=== PATIENT | female | born 1970 | race Caucasian/White ===

== ENCOUNTER 2023-01-03 17:55 | Emergency (ER) | payer BC, OTHER, SELFPAY ==
[2023-01-03] VITALS (21 sets, daily range): BP systolic 127–144; BP diastolic 82–102; PULSE 78–83; RESP 15–18; TEMP 36.8; O2SAT 91–98; BMI 32.3
--- NOTE | 2023-01-03 18:34 | CT_ITS ---
The [address] [address] Patient Name: VERN Yu MARCUS MRN: [id number] date: 1970 Sex: F Assigned Patient Location: ER Current Patient Location: .[facility] Accession/Order Number: [id number] Exam Date: 01/03/2023 19:59 Report Date: 01/03/2023 21:11 At the request of: JUVENCIO WILSON Procedure: CT facial bones w con EXAMINATION: CT facial bones w con CLINICAL HISTORY: right facial pain TECHNIQUE: Spiral, high resolution axial unenhanced images were obtained from the skull base to the cervicothoracic junction with sagittal and coronal planar reconstructions. All CT scans at this facility use dose modulation, iterative reconstruction, and/or weight based dosing when appropriate to reduce radiation dose to as low as reasonably achievable. COMPARISON: None. RESULT: Soft Tissues: No significant superficial soft tissue swelling. Facial bones: No evidence of an acute fracture in the visualized facial bones. Orbits: No evidence of an acute fracture. The globes are intact. The soft tissue planes of the orbits are maintained. Paranasal Sinuses: The paranasal sinuses are clear. Mastoid air cells: Clear. Foreign Bodies: No evidence of radio-opaque foreign bodies. Other: No evidence of a remote fracture. No lytic or blastic process in the facial bones. CT/CT facial bones w con IMPRESSION: No evidence of acute facial bone fracture or soft tissue swelling. Electronically authenticated by: BECCA BEAR Date: 01/03/2023 21:11
--- NOTE | 2023-01-03 18:34 | CT_ITS ---
The [address] [address] Patient Name: VERN Yu MARCUS MRN: [id number] date: 1970 Sex: F Assigned Patient Location: ER Current Patient Location: ER Accession/Order Number: [id number] Exam Date: 01/03/2023 19:59 Report Date: 01/03/2023 20:47 At the request of: JUVENCIO WILSON Procedure: CT soft tissue neck w con CT soft tissue neck w con HISTORY: right neck pain TECHNIQUE: CT of the neck soft tissues following IV administration of 100 cc Omnipaque 300. All CT scans at this facility use dose modulation, iterative reconstruction, and/or weight based dosing when appropriate to reduce radiation dose to as low as reasonably achievable. COMPARISON: None. RESULT: Lymph nodes: No cervical lymphadenopathy by size, number or morphologic criteria. Small nonspecific lymph nodes are scattered throughout the neck. Aerodigestive tract: The oral cavity is partially obscured by artifact from dental amalgam. The nasal cavities, naso-oropharynx, pharyngeal mucosal space, laryngeal structures and infraglottic trachea are within normal limits. Major salivary glands: Within normal limits. Thyroid gland: Asymmetric enlargement right thyroid lobe with multiple subcentimeter low attenuation nodules. Carotid space: Patent bilateral extracranial carotid and jugular systems. Intracranial contents: Imaged portions within normal limits. Paranasal sinuses, middle ears, mastoids: Clear. Orbits: Within normal limits. Bones: No suspicious osseous lesions in the imaged calvarium, skull base and spine. Normal cervicothoracic alignment. No significant spondylotic changes. Temporomandibular joints are maintained. Lungs: Imaged lungs are clear. CT/CT soft tissue neck w con IMPRESSION: No acute findings of the neck. Asymmetric enlargement right thyroid lobe with multiple low-attenuation nodules. Recommend nonemergent thyroid ultrasound. Electronically authenticated by: BECCA BEAR Date: 01/03/2023 20:47
--- NOTE | 2023-01-03 18:36 | ED.GENADUL1 ---
HPI - General Adult General Chief complaint: Dental/Oral Stated complaint: DENTAL Time Seen by Provider: 01/03/23 18:11 Source: patient Mode of arrival: walk-in Limitations: no limitations History of Present Illness HPI narrative: Patient is scheduled for root canal tomorrow -0 she has been experiencing pain in the right upper jaw. Her dentist placed her on antibiotics and filled two cavities. He then referred her for oral surgery after persistent pain in the right upper mouth jaw. Overnight the patient developed pain to the right side of the head, right cheek and right neck. She also complains of pain in the right ear. No fever or chills. No vomiting. She mentioned that her heart felt like it was racing today . She took a dose of extra strength Tylenol once and three doses of Motrin 600mg with the last at 4pm. Related Data Home Medications Medication Instructions Recorded Confirmed ibuprofen 600 mg tablet (IBU) 600 mg PO Q6H 01/03/23 01/03/23 omeprazole 40 mg capsule,delayed 40 mg PO DAILY 01/03/23 01/03/23 release Allergies Allergy/AdvReac Type Severity Reaction Status Date / Time No Known Drug Allergies Allergy Verified 01/03/23 18:03 [facility] Social History Smoking status: Former smoker Exam Narrative Exam Narrative: Nurses notes and vital signs reviewed and patient is not hypoxic. afebrile General: Uncomfortable. Skin: Warm, dry, no pallor noted. both cheeks are flushed Head: Tenderness along the right maxilla, right cheek and right jaw with mild swelling noted. Scalp is normocephalic, atraumatic. Neck: Supple, no cervical lymphadenopathy. Right anterolateral neck tenderness. No carotid bruits. Eye: Pupils are equal, round and EOMI. No scleral icterus. Ears, Nose, Mouth, and Throat: TM are clear, no nasal mucosal hypertrophy. Oral mucosa is moist, no posterior oropharynx erythema, uvula is mid-line. No gum r tooth tenderness in the right upper mouth/molars. No periapical abscess noted. Cardiovascular: Regular Rate and Rhythm without murmur, gallop or rub. Respiratory: No accessory muscle use or respiratory distress. Lungs are clear to auscultation, no wheezing, rales or rhonchi Musculoskeletal: normal ROM Neurological: A&O x4. No cranial nerve dysfunction observed. No truncal ataxia. Moves all extremities. Sensation intact. Psychiatric: Cooperative and interactive. Normal mood and affect. Constitutional Vital Signs, click to edit/add: Last Vital Signs Temp 98.3 F 01/03/23 18:04 Pulse 83 01/03/23 18:04 Resp 18 01/03/23 18:04 BP 133/102 H 01/03/23 18:04 Pulse Ox 98 01/03/23 18:04 O2 Del Method Room Air 01/03/23 18:04 Course Vital Signs Vital signs: Vital Signs Temperature 98.3 F 01/03/23 18:04 Pulse Rate 83 01/03/23 18:04 Respiratory Rate 18 01/03/23 18:04 Blood Pressure 133/102 H 01/03/23 18:04 Pulse Oximetry 98 01/03/23 18:04 Oxygen Delivery Method Room Air 01/03/23 18:04 Temperature 98.3 F 01/03/23 18:04 Pulse Rate 83 01/03/23 18:04 Respiratory Rate 18 01/03/23 18:04 Blood Pressure 133/102 H 01/03/23 18:04 Pulse Oximetry 98 01/03/23 18:04 Oxygen Delivery Method Room Air 01/03/23 18:04 Medical Decision Making MDM Narrative Medical decision making narrative: peripheral IV were to be established and blood drawn and sent for testing. The patient was ordered to undergo CT scanning of the facial bones and soft tissue of the neck with IV contrast. She was ordered to receive IV Zofran to prevent nausea from IV Dilaudid I ordered for pain. She also received clindamycin and topical dental anesthetic paste was prepared in case she developed continued pain in the right upper molar area. . Discharge Plan Discharge Chief Complaint: Dental/Oral Patient Disposition: Still a Patient Prescriptions / Home Meds: No Action ibuprofen [IBU] 600 mg tablet 600 mg PO Q6H omeprazole 40 mg capsule,delayed release(DR/EC) 40 mg PO DAILY Referrals: Physician,Non-Staff, MD [Primary Care Provider] - 1 week
[2023-01-03] MEDS: CLINDAMYCIN HCL 150 MG CAPSULE 450 MG PO (18:45)
[2023-01-03] MEDS: BENZOCAINE 30 ML, lidocaine HCL 15 ML MM (18:45)
[2023-01-03] MEDS: ONDANSETRON PF 4 MG/2 ML VIAL IV (18:49)
[2023-01-03] MEDS: HYDROMORPHONE HCL 1 MG/ML CARTRIDGE IVP (18:49)
[2023-01-03 19:17] LABS: Basophils Absolute Auto 0.1 10^3/uL (0.0-0.1); Basophils Percent Auto 1.2 % (0.2-2.0); Eosinophils Absolute Auto 0.1 10^3/uL (0.0-0.7); Hematocrit 34.4 % (36.0-48.0); Hemoglobin 11.7 g/dL (12.0-16.0); Immature Granulocytes Abs Auto 0.01 10^3/uL (0.00-0.03); Immature Granulocytes Pct Auto 0.2 % (0.0-0.5); Lymphocytes Absolute Auto 1.8 10^3/uL (1.2-3.8); Lymphocytes Percent Auto 30.3 % (20.5-60.0); Mean Corpuscular Hemoglobin 33.2 pg (26.7-34.0); Mean Corpuscular Volume 97.7 fL (81.0-99.0); Mean Platelet Volume 9.3 fL (9.5-13.5); Monocytes Absolute Auto 0.4 10^3/uL (0.3-0.8); Monocytes Percent Auto 6.7 % (1.7-12.0); Neutrophils Absolute Auto 3.6 10^3/uL (1.4-6.5); Neutrophils Percent Auto 59.6 % (43.0-75.0); Platelet Count 275 10^3/uL (150-450); Red Blood Count 3.52 10^6/uL (4.20-5.40); Red Cell Distribution Width 11.9 % (11.0-15.0)
[2023-01-03 19:24] LABS: Anion Gap 10.8; BUN Creatinine Ratio 15.4; Calcium 8.8 mg/dL (8.5-10.1); Carbon Dioxide 26.8 mmol/L (21.0-32.0); Chloride 106 mmol/L (98-107); Estimated GFR (African America >60 (>=60); Estimated GFR (Non-African Ame >60 (>=60); Glucose 90 mg/dL (74-106); Potassium 3.6 mmol/L (3.5-5.1); Sodium 140 mmol/L (136-145)
[2023-01-03] MEDS: KETOROLAC TROMETHAMINE 30 MG/ML VIAL IVP (20:17)
[2023-01-03] MEDS: DEXAMETHASONE SOD PHOS 10 MG/ML VIAL IV (20:17)
[2023-01-03] MEDS: ORPHENADRINE 60 MG/ 2 ML VIAL IV (21:55)
== END 2023-01-03 22:03 | disposition home or self-care (01) ==
PROVIDERS: Emergency Provider Emergency Medicine
DX: K04.7 Periapical abscess without sinus (principal); Z87.891 Personal history of nicotine dependence
CPT/HCPCS: 36415; 70487; 70491; 80048; 85025; 96374; 96375; 99285; J1100; J1170; Q9967

== ENCOUNTER 2024-04-07 22:24 | Emergency (ER) | payer BC, OTHER, SELFPAY ==
[2024-04-07 22:30] VITALS: BP 137/85; PULSE 94; TEMP 36.8; O2SAT 95; BMI 31.8
--- OUTSIDE RECORDS SUMMARY | 2024-04-07 22:31 | XMS_ITS | CCD ---
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 Name Role Phone GUERLINE ALEXANDER Admitting Unavailable GUERLINE ALEXANDER Attending Unavailable GINA, DR WYLIE Primary Care Unavailable BENJAMIN GUERLINE Consulting Unavailable BENJAMIN, GUERLINE Admitting Unavailable MEL ALEXANDERUEL Attending Unavailable GINA, DR WYLIE Primary Care Unavailable BENJAMIN GUERLINE Consulting Unavailable BENJAMIN, GUERLINE Admitting Unavailable GUERLINE ALEXANDER Attending Unavailable GINA, DR WYLIE Primary Care Unavailable GUERLINE ALEXANDER Consulting Unavailable Jose Sinha Unavailable Inessa Fuentes Unavailable Anderson Drake Unavailable DO Inessa Fuentes Primary Care Provider MD Anderson Drake Attending Provider DO Inessa Fuentes Primary Care Provider MD Anderson Drake Attending Provider [phone] DO Inessa Fuentes Attending Provider DO Inessa Fuentes Attending Provider [phone] Inessa Fuentes Unavailable Inessa Fuentes Primary Care Provider INESSA FUENTES Primary Care Unavailable LY, ANNE Attending Unavailable LY, ANNE L Referring Unavailable INESSA FUENTES Primary Care Unavailable INESSA FUENTES Primary Care Unavailable LY, ANNE L Referring Unavailable LY, ANNE L Referring Unavailable INESSA FUENTES Primary Care Unavailable DO Inessa Fuentes Primary Care Provider DO Fausto Veliz Attending Provider INESSA FUENTES Primary Care Physician [phone] EDWIN WEAVER Attending Unavailable Kuns , Inessa Primary Care Provider Kunrubin DO, Inessa Attending Provider [phone] Kunrubin DO, Inessa R Primary Care Provider Fausto Veliz DO W Unavailable Kunrubin DO, Inessa Primary Care Provider [phone] Self, Referral Attending Provider Unavailable Visci Heather MCMILLAN Referring Provider Diana DOAnne Attending Provider [phone] Viscdomitila MCMILLAN, Heather Attending Provider ALANNA DON Attending Unavailable MURFAUSTO FLORES Attending Unavailable KUNSINESSA R Referring Unavailable MURCEKFAUSTO Attending Unavailable KUNSINESSA R Referring Unavailable MURCEKFAUSTO Attending Unavailable KUNSINESSA R Referring Unavailable VISCIHEATHER Attending Unavailable MURFAUSTO FLORES W Attending Unavailable KUNSINESSA R Referring Unavailable Itzkowitz Alanna MCMILLAN Attending Provider Viscdomitila, Heather Admitting Unavailable Visci, Heather Attending Unavailable Franciscos, Inessa Primary Care Unavailable Ly, Anne L Admitting Unavailable Ly, Anne Garcia Attending Unavailable Kuns, Inessa Primary Care Unavailable Kuns, Inessa Primary Care Unavailable Self, Referral Admitting Unavailable Self, Referral Attending Unavailable Viscdomitila, Heather Referring Unavailable Kuns, Inessa Primary Care Unavailable KunsInessa Attending Unavailable Kuns, Inessa Admitting Unavailable Kuns, Inessa Primary Care Unavailable MurFausto flores Admitting Unavailable MurFausto flores Attending Unavailable ItzkoAlanna thomas Admitting Unavailable ItzAlanna hayward Attending Unavailable Kuns, Inessa Primary Care Unavailable Medications Current Medications Medication Drug Class(es) Dates Sig (Normalized) Sig (Original) [id number] 200 actuat albuterol 0.09 mg/actuat metered dose inhaler (8 sources) beta2-Adrenergic Agonist Start: 07-13-2022 albuterol HFA 90 mcg/act inhaler Inhale 2 puffs in the morning and 2 puffs at noon and 2 puffs in the evening and 2 puffs before bedtime. 07/13/2022 Active Start: 07-13-2022 take 2 puff(s) by in halation four times daily as needed Albuterol Sulfate HFA 108 (90 Base) MCG/ACT 2 puffs Inhalation 4 times a day prn June, Active ALPRAZolam 0.25 mg oral tablet (20 sources) Benzodiazepine Start: 08-10-2023 End: 08-10-2023 take 1 tablet by mouth twice daily as needed for anxiety Alprazolam 0.25 mg tablet Active 0.25 MG PO Twice daily as needed for Anxiety August 10, 2023 8:05am Primarily used for travel Start: 11-25-2021 End: 08-10-2023 Alprazolam 0.25 mg tablet Di scontinued 0.25 MG PO As Directed as needed for Anxiety November 24, 2021 11:00pm August 10, 2023 7:58am takes 1/2 pill Start: 09-17-2020 ALPRAZolam (XA NAX) 0.25 mg tablet As Directed 0 09/17/2020 Active Comment on above: As Directed benzonatate 200 mg oral capsule (3 sources) Non-narcotic Antitussive Start: 07-14-19 23 take 1 capsule by mouth every eight hours Benzonatate 200 MG 1 capsule Orally Three times a day June, Active Cholestyramine Resin (5 sources) Bile Acid Sequestrant Start: 11-12-19 24 take 1 dose by mouth once daily Cholestyramine (With Sugar) 4 gram powder Active 4 GM PO Daily 378 November 11, 2023 11:00pm administer w/meal; avoid other meds within 1hr before or 4-6hr after dose Start: 11-12-2023 take 1 dose by mouth once daily Cholestyramine (With Sugar) Active 4 GM PO Daily 378 November 12, 2023 12:00am administer w/meal; avoid other meds within 1hr before or 4-6hr after dose dexlansoprazole 60 mg delayed release oral capsule (1 source) Proton Pump Inhibitor Start: 03-05-2017 take 1 capsule by mouth once daily Dexlansoprazole (Dexilant) 60 mg Capsule,Biphase Delayed Releas Active 60 MG PO Daily March 05, 2017 1:00am dicyclomine hydrochloride 20 mg oral tablet (20 sources) Anticholinergic Start: 10-18-2020 take 1 tablet by mouth every twelve hours Dicyclomine HCl 20 MG 1 tablet Orally BID Sep, Active Start: 09-05-2018 End: 11-25-2021 take 1 tablet by mouth four times daily as needed Dicyclomine 20 mg tablet Discontinued 20 MG PO Four times daily as needed for abdominal discomfort September 04, 2018 11:00pm November 25, 2021 11:41am Start: 03-05-2017 End: 09-05-2018 take 1 tablet by mouth once daily Dicyclomine 20 mg tablet Discontinued 20 MG PO Daily March 05, 2017 12:00am September 05, 2018 11:02am doxycycline hyclate 100 mg oral tablet (3 sources) Tetracycline-class Drug Start: 07-13-2022 take 1 tablet by mouth every twelve hours Doxycycline Hyclate 100 MG 1 tablet Orally Twice a day for 10 day(s) June, Active methylPREDNISolone 4 mg oral tablet (1 source) Corticosteroid Start: 04-25-2021 methylPREDNISolone 4 MG as directed Orally as directed Apr, Active Multivitamin preparation (6 sources) Start: 03-05-2017 take 1 tablet by mouth once daily Multivitamin Active 1 TAB PO Daily March 05, 2017 12:00am Start: 03-05-2017 take 1 tablet by carlos th once daily Multivitamin Active 1 TAB PO Daily March 05, 2017 1:00am Multivitamin Tablet (4 sources) Start: 03-05-2017 take 1 tablet by mouth once daily Multivitamin Tablet Active 1 TAB PO Daily March 05, 2017 12:00am phentermine hydrochloride 37.5 mg oral tablet (2 sources) Sympathomimetic Amine Anorectic Start: 10-22-2020 take 1 tablet by mouth every twenty-four hours Phentermine HCl 37.5 MG 1 tablet Orally Once a day for 30 days Sep, Active predniSONE 20 mg oral tablet (3 sources) Start: 07-13-2022 take 1 tablet by mouth every twelve hours predniSONE 20 MG 1 tablet Orally bid for 5 day(s) June, Active sulfamethoxazole 800 mg / trimethoprim 160 mg oral tablet (1 source) Dihydrofolate Reductase Inhibitor Antibacterial, Sulfonamide Antimicrobial Start: 04-25-2021 take 1 tablet by mouth every twelve hours Bactrim DS 800-160 MG 1 tablet Orally Twice a day for 10 day(s) Apr, Active Completed/Discontinued Medications Medication Drug Class(es) Dates Sig (Normalized) Sig (Original) cephalexin 500 mg oral capsule (10 sources) Cephalosporin Antibacterial Start: 09-05-2018 End: 10-27-2018 take 1 capsule by mouth every twelve hours Cephalexin (Keflex) 500 mg capsule Discontinued 500 MG PO Q12H September 04, 2018 11:00pm October 27, 2018 6:48am Dexlansoprazole (Dexilant) 60 mg Capsule,Biphase Delayed Releas (9 sources) Start: 03-05-2017 End: 11-25-2021 take 1 capsule by mouth once daily Dexlansoprazole (Dexilant) 60 mg Capsule,Biphase Delayed Releas Discontinued 60 MG PO Daily March 05, 2017 12:00am November 25, 2021 11:41am Start: 03-05-2017 End: 11-25-2021 take 1 capsule by mouth once daily Dexlansoprazole (Dexilant) 60 mg Capsule,Biphase Delayed Releas Discontinued 60 MG PO Daily March 05, 2017 1:00am November 25, 2021 12:41pm hyoscyamine sulfate 0.125 mg oral tablet (10 sources) Start: 09-05-2018 End: 11-25-2021 Hyoscyamine Sulfate 0.125 mg Tablet Discontinued 0.125 MG PO 2-4 TIMES PER DAY as needed for Abdominal Pain September 04, 2018 11:00pm November 25, 2021 11:41am loperamide hydrochloride 2 mg oral capsule (20 sources) Opioid Agonist Start: 09-05-2018 loperamide (IM ODIUM) 2 mg cap(s) EVERY 1-2 HOURS 0 09/05/2018 Active Start: 09-05-2018 Loperamide (Im odium A-D) 2 mg capsule Active 2 MG PO EVERY 1- 2 HOURS as needed for loose stool September 04, 2018 11:00pm after each loose stool until symptoms controlled; do not exceed 16 mg total dose in 24 hrs Imodium A-D PRN Active Imodium A-D Acti ve Comment on above: EVERY 1-2 HOURS MEDICATION, NON-DATABASE (7 sources) take 1 tablet by mouth three times daily before mealtime MEDICATION, NON-DATABASE Take 1 tablet by mouth three times a day before meals. ESSENTIALZYME - Dietary supplement 0 Active Comment on above: Take 1 tablet by [facility] three times a day before meals. ESSENTIALZYME - Dietary supplement MULTIVITAMIN ORAL (7 sources) Start: 03-05-19 MULTIVITAMIN ORAL 1 tablet. 0 03/05/2017 Active Comment on above: 1 tablet. ofloxacin 3 mg/ml ophthalmic solution (6 sources) Quinolone Antimicrobial Start: 11-16-19 End: 03-23-19 ofloxacin (Ocuflox) 0.3 % ophthalmic solution Administer 2 drops into the left eye in the morning and 2 drops at noon and 2 drops in the evening and 2 drops before bedtime. 11/16/2023 03/23/2024 Discontinued Start: 11-16-2023 End: 11-21-2023 ofloxacin Opth 0.3% Marla 2 dr roque(s), OPTH, QID for 5 day(s), 10 mL, Refill(s) 0, [facility]/pharmacy #[id number], 165, cm, 11/16/23 11:26:00 EDT, Height/Length Dosing, 86, kg, 11/16/23 11:26:00 EDT, Weight Dosing Start Date: 11/16/23 Stop Date: 11/21/23 Status: Ordered omeprazole 40 mg delayed release oral capsule (20 sources) Proton Pump Inhibitor Start: 01-02-2023 take 1 capsule by mouth once daily Omeprazole 40 mg capsule,delayed release(DR/EC) Active 40 MG PO Daily August 10, 2023 7:52am Start: 10-14-2021 End: 08-10-2023 take 1 capsule by mouth twice daily Omeprazole 40 mg capsule,delayed release(DR/EC) Discontinued 40 MG PO Twice daily November 24, 2021 11:00pm June 16, 2023 12:19pm take 1 capsule by [facility] once daily Omeprazole 40 MG 1 capsule 30 minutes before morning meal Orally Once a day Active Comment on above: TAKE 1 CAPSULE BY [facility] TWICE A DAY FOR 90 DAYS ondansetron 4 mg disintegrating oral tablet (20 sources) Serotonin-3 Receptor Antagonist Start: 03-29-19 End: 03-23-19 take 1 tablet by mouth every eight hours as needed ondansetron ODT (Zofran-ODT) 4 MG disintegrating tablet Take 4 mg by mouth every 8 (eight) hours if needed 03/29/2023 03/23/2024 Discontinued Start: 11-06-2021 take 1 tablet by carlos th three times daily as needed Ondansetron 4 MG 1 tablet on the tongue and allow to dissolve Orally TID prn for 30 day(s) PRN Oct, Active Start: 09-05-2018 take 1 tablet by carlos th every six hours as needed for nausea and vomiting Ondansetron 4 mg tablet,disintegrating Active 4 MG PO Q6H as needed for nausea and vomiting September 04, 2018 11:00pm sucralfate 1000 mg oral tablet (20 sources) Aluminum Complex Start: 11-25-2021 End: 01-06-2024 take 1 tablet by mouth once daily Sucralfate (Carafate) 1 gram tablet Discontinued 1 GM PO Daily August 08, 2023 11:00pm August 10, 2023 7:52am [employer] TABLET Orally ONCE A DAY; Note: Source Status: Continue; Provider: Gina Small Start: 08-22-2020 take 1 tablet by carlos th every twenty-four hours Carafate 1 GM 1 TABLET Orally ONCE A DAY Aug, Active Start: 08-22-2020 take 1 tablet by carlos th every twelve hours Carafate 1 GM 1 tablet on an empty stomach Orally Twice a day for 90 days Aug, Active Comment on above: Take 1 tablet by carlos th every afternoon. 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 Biliary tract disease (15 sources) Poorly functioning gallbladder; Translations: [Other specified diseases of gallbladder] Onset: 4 09-05-2018 Episodic Diabetes mellitus without complication (8 sources) Hyperglycemia; Translations: [Hyperglycemia, unspecified] Onset: 4 Resolved: 4 01-06-2024 Episodic Disorders of lipid metabolism (20 sources) Hyperlipidemia; Translations: [Hyperlipidemia, unspecified] Onset: 4 Chronic Diverticulosis and diverticulitis (20 sources) Diverticular disease of colon; Translations: [Diverticulosis of large intestine without perforation or abscess without bleeding] Onset: 1 Resolved: 1 Chronic Esophageal disorders (20 sources) Gastroesophageal reflux disease; Translations: [Gastro-esophageal reflux disease without esophagitis] Onset: 1 Resolved: 2 Chronic Gastritis and duodenitis (20 sources) Chronic superficial gastritis; Translations: [Chronic superficial gastritis without bleeding] Onset: 1 Resolved: 2 Chronic Genitourinary symptoms and ill-defined conditions (20 sources) Leukocytes in urine; Translations: [Other abnormal findings in urine] Onset: 4 Episodic Immunizations and screening for infectious disease (4 sources) Encounter for immunization; Translations: [ENCOUNTER FOR IMMUNIZATION] Onset: 2 Episodic Inflammation; infection of eye (except that caused by tuberculosis or sexually transmitteddisease) (1 source) External hordeolum; Translations: [Hordeolum externum unspecified eye, unspecified eyelid] Onset: 4 Episodic Nausea and vomiting (1 source) Nausea Episodic Nonmalignant breast conditions (2 sources) Mammographic microcalcification of left breast; Translations: [Mammographic microcalcification found on diagnostic imaging of breast] Onset: 5 03-23-2024 Episodic Other and unspecified benign neoplasm (15 sources) Polyp of colon; Translations: [Polyp of colon] Onset: 4 11-29-2020 Episodic Other disorders of stomach and duodenum (20 sources) Indigestion; Translations: [Functional dyspepsia] Onset: 4 04-16-2023 Episodic Other disorders of stomach and duodenum (3 sources) Other diseases of stomach and duodenum Onset: 1 Resolved: 2 Episodic Other disorders of stomach and duodenum (15 sources) Disorder of function of stomach; Translations: [Disease of stomach and duodenum, unspecified] Onset: 4 03-08-2017 Episodic Other gastrointestinal disorders (20 sources) Irritable bowel syndrome with diarrhea; Translations: [Irritable bowel syndrome with diarrhea] Onset: 4 06-09-2023 Chronic Other gastrointestinal disorders (20 sources) Irritable bowel syndrome; Translations: [Mixed irritable bowel syndrome] Chronic Other gastrointestinal disorders (6 sources) Irritable bowel syndrome with diarrhea Onset: 1 Resolved: 2 Chronic Other gastrointestinal disorders (1 source) Mixed irritable bowel syndrome Chronic Other gastrointestinal disorders (20 sources) Diarrhea; Translations: [Diarrhea, unspecified] Onset: 4 09-05-2018 Episodic Other gastrointestinal disorders (1 source) Other specified symptoms and signs involving the digestive system and abdomen; Translations: [Irregular bowel habits] Onset: 4 Episodic Other gastrointestinal disorders (4 sources) Diarrhea, unspecified; Translations: [Diarrhea] Onset: 4 11-12-2023 Episodic Other nutritional; endocrine; and metabolic disorders (20 sources) Obesity; Translations: [Obesity, unspecified] Onset: 4 08-10-2023 Chronic Other nutritional; endocrine; and metabolic disorders (10 sources) Body mass index 30+ - obesity; Translations: [Body mass index (BMI) 32.0-32.9, adult] 01-06-2024 Chronic Other nutritional; endocrine; and metabolic disorders (5 sources) Obesity, unspecified; Translations: [Obesity, unspecified] Chronic Other nutritional; endocrine; and metabolic disorders (1 source) Obese class I; Translations: [Body mass index (BMI) 31.0-31.9, adult] Onset: 4 Chronic Other nutritional; endocrine; and metabolic disorders (4 sources) Body mass index (BMI) 31.0-31.9, adult; Translations: [Body Mass Index 31.0-31.9, adult] 01-06-2024 Chronic Other screening for suspected conditions (not mental disorders or infectious disease) (4 sources) Encounter for screening mammogram for malignant neoplasm of breast; Translations: [Encounter for other screening for malignant neoplasm of breast] Onset: 4 Episodic Thyroid disorders (20 sources) Thyroid nodule; Translations: [Nontoxic single thyroid nodule] Onset: 4 Chronic Past or Other Problems Problem Classification Problem Date Documented Da te Episodic/Chronic Administrative/social admission (20 sources) Patient encounter status; Translations: [Dietary counseling and surveillance] Onset: 06-09-2023 01-06-2024 Episodic Other and unspecified benign neoplasm (20 sources) History of polyp of colon; Translations: [Personal history of colonic polyps] Onset: 06-09-2023 11-23-2023 Episodic Other and unspecified benign neoplasm (1 source) Polyp of colon Onset: 12-31-2020 Resolved: 12-31-2020 Episodic Other disorders of stomach and duodenum (20 sources) Intestinal metaplasia of gastric mucosa; Translations: [Other diseases of stomach and duodenum] Onset: 06-09-2023 06-09-2023 Episodic Other gastrointestinal disorders (20 sources) Constipation alternates with diarrhea; Translations: [Other specified symptoms and signs involving the digestive system and abdomen] Onset: 06-09-2023 06-09-2023 Episodic Other gastrointestinal disorders (1 source) Abdominal distension (gaseous) Onset: 10-14-2021 Resolved: 10-14-2021 Episodic Other lower respiratory disease (16 sources) Cough; Translations: [Cough, unspecified type] Onset: 06-09-2023 06-09-2023 Episodic Unclassified (1 source) History of COVID-19 Z86.16 Unclassified (1 source) Cough, unspecified type R05.9 Results Test Name Value Interpretation Reference Range Facility Mammography reportOrdered By : Rojelio Magallon on 03-31-2024 Diagnostic imaging study [facility] [place] [address] Mammography Report Signed with Addenda Patient: Zari Velazquez MR#: [id number] : 1970 Acct:[id number] Age/Sex: 54 / F ADM Date: 5 Loc: [place] Room: Type: [facility] Attending Dr: Alanna Don DO Copies to: DO Alanna Walters DO~ Ordering Provider: Alanna Don DO Date of Service: 03/28/24 MM/MM biopsy LT vac assist stereo: N63.22 ([id number]) MM/MM speciman imaging post bx: POST BIOPSY, CALCIFICATIONS ([id number]) MM/MM post biopsy LT w/CAD: POST BIOPSY CLIP PLACEMENT ADDENDUM 1 Addendum for pathology: Stereotactic biopsy left breast calcifications: Ductal carcinoma in situ ER/NC positive. Findings this is concordant with imaging. Surgical/oncologic management is suggested. Impression dictated by: Rojelio Magallon Jr., D.O.03/31/2024 12:44 PM Dictation Location: [facility]--22 Addendum Dictated By: Rojelio Magallon Jr, DO Addendum Signed By: 03/31/24 1244 Addendum Cosigned By: DD/ /15/1242 TD/TT: 03/31/2409/16/1243 STEREOTACTIC LEFT BREAST BIOPSY WITH VACUUM ASSISTED NEEDLE AND MARKING CLIP PLACEMENT: CLINICAL INDICATION: Suspicious left breast calcifications TECHNIQUE AND FINDINGS: The procedure, associated risks, benefits were discussed with the patient and written, informed consent was obtained. Stereotactic imaging was performed and the coordinates of the lesion were calculated. Following sterile preparation and local anesthetization with lidocaine, an 9-gauge [employer] vacuum assisted core biopsy needle was advanced intothe breast. Documentation of the needle position was performed both before and after firing of the needle. Multiple core biopsy specimens were obtained of the area of concern. Before the needle was removed, a marking clip was placed. The postbiopsy stereotactic image confirmed clip deployment. There were no immediatepostprocedural complications. MM/MM post biopsy LT w/CAD IMPRESSION: TECHNICALLY SUCCESSFUL LEFT BREAST STEREOTACTIC BIOPSY ENUMERATED ABOVE. LEFT BREAST SPECIMEN: Specimen radiograph of the tissue samples was obtained. There are multiple core tissue samples. Calcifications are seen within some of the tissue cores. IMPRESSION: STATUS POST SUCCESSFUL SAMPLING OF LEFT BREAST CALCIFICATIONS DIAGNOSTIC MAMMOGRAMS: Craniocaudal and lateral views of the left breast were performed post stereotactic biopsy using low dose digital technique. Comparison is made to the previous mammograms dated 03/14/2024. A marking clip isnoted with 1.8 cm of inferior migration IMPRESSION: STATUS POST SUCCESSFUL STEREOTACTIC BIOPSY OF LEFT BREAST. 1.8 CM INFERIOR MIGRATION OF THE CLIP RELATIVE TO THE BIOPSY SITE. RESULT CODE: NL Impression dictated by: Rojelio Magallon Jr., D.O.03/28/2024 11:31 AM Dictation Location: [id number] Transcribed By: MICHAEL 03/28/24 1131 Dictated By: Rojelio Magallon Jr, DO 03/28/24 1128 Signed By: 03/28/24 1131 [facility] Pathology study report docum entOrdered By: Sachin Staton on 03-30-2024 Pathology study [facility] Other Grant 03-28-2024 L ----- Specimen: [id number] Received: 03/28/24 Status: JEREMY Hagan Num: [id number] Spec Type: Surgical Subm Dr: Rojelio Magallon Jr, Tissues: A Breast Core CALCIFICATIONS (LEFT BREAST) Procedures: HE/8, Gross/Micro L4, CK5 6/4, E CADHERIN, ER, p63/4, NC Age/ Patient Sex Location Account Attending Physician Zari Velazquez 54/F QUITA [id number] Alanna Don DO SPEC NUM: [id number] RECD: 03/28/24 STATUS: JEREMY STREETPola NUM: [id number] JAMESON: 03/28/24- DR: Rojelio Magallon Jr, DO ENTERED: 03/28/24 [facility] DR: Alanna Don, DO SPEC TYPE: Surgical DEPT: S ORDERED: HE/8, Gross/Micro L4, CK5 6/4, E CADHERIN, ER, p63/4, NC ORDERED: HE/8, Gross/Micro L4, CK5 6/4, E CADHERIN, ER, p63/4, NC Pathological Diagnosis Calcifications, left breast, Core Biopsy: Ductal carcinoma in situ (DCIS), intermediate nuclear grade. Associated calcifications. Breast Hormone Profile ER: Positive (intermediate, 90-100%). NC: Positive (intermediate, 50-60%). This case has been internally reviewed by Dr. Youngblood with agreement. Clinical Information Left breast calcifications Gross Description A. The specimen is in formalin labeled with the patient's name, date of and left breast . It consists of 2 loosely folded Telfa pads. Per the requisition top Telfa pad contains calcs . The top Telfa pad contains 6 fibrofatty cheng-yellow tissue cores ranging from 2.1-3.3 cm in length by 0.2 to 0.3 cm in diameter. The bottom Telfa pad contains 2 fibrofatty tissue cores ranging from 2.6-3.5 cm in length by 0.3 cm in diameter, along with Specimen: [id number] Received: 03/28/24 Status: JEREMY Hagan Num: [id number] Spec Type: Surgical Subm Dr: Rojelio Magallon Jr, Tissues: A Breast Core CALCIFICATIONS (LEFT BREAST) Procedures: HE/8, Gross/Micro L4, CK5 6/4, E CADHERIN, ER, p63/4, NC Patient: Zari Velazquez [id number] (Continued) Specimen: [id number] Received: 03/28/24 (Continued) Gross Description (Continued) Signed (signature on file) Sachin Staton MD 03/30/24 1628 Specimen: [id number] Received: 03/28/24 Status: JEREMY Hagan Num: [id number] Spec Type: Surgical Subm Dr: Rojelio Magallon Jr, Tissues: A Breast Core CALCIFICATIONS (LEFT BREAST) Procedures: HE/8, Gross/Micro L4, CK5 6/4, E CADHERIN, ER, p63/4, NC Patient: RobbieZari [id number] (Continued) Specimen: [id number] Received: 03/28/24-1152 (Continued) Gross Description (Continued) a 2.0 x 1.4 x 0.3 cm aggregate of adipose tissue fragments. The specimen is entirely submitted as follows: A1?A2: Cores from top Telfa pad A3?A4: Cores from bottom Telfa pad Time specimen extracted: 1117 Time specimen placed in formalin: 1124 Cold ischemic time: 7 minutes Total fixation time: 6 hours 36 minutes [facility] Codes [id number] Specimen: [id number] Received: 03/28/24 Status: JEREMY Hagan Num: [id number] Spec Type: Surgical Subm Dr: Rojelio Magallon Jr, DO Tissues: A Breast Core CALCIFICATIONS (LEFT BREAST) Procedures: HE/8, Gross/Micro L4, CK5 6/4, E CADHERIN, ER, p63/4, NC Patient: Zari Velazquez [id number] (Continued) Signed (signature on file) Sachin Staton MD 03/30/24 1628 Normal [facility] MM biopsy LT vac assist ster eoon 03-28-2024 MM biopsy [place] [address] Mammography Report Signed with Praneeth Patient: Zari Velazquez MR#: [id number] 764 : 1970 Acct:[id number] Age/Sex: 54 / F ADM Date: 03/28/24 Loc: [place] Room: Type: [facility] Attending Dr: Alanna Don DO Copies to: DO Alanna Walters DO Ordering Provider: Alanna Don DO Date of Service: 03/28/24 MM/MM biopsy LT vac assist stereo: N63.22 ([id number]) MM/MM speciman imaging post bx: POST BIOPSY, CALCIFICATIONS ([id number]) MM/MM post biopsy LT w/CAD: POST BIOPSY CLIP PLACEMENT ADDENDUM 1 Addendum for pathology: Stereotactic biopsy left breast calcifications: Ductal carcinoma in situ ER/NC positive. Findings this is concordant with imaging. Surgical/oncologic management is suggested. Impression dictated by: Rojelio Magallon Jr., D.O.03/31/2024 12:44 PM Dictation Location: RADIO-PC-22 Addendum Dictated By: Rojelio Magallon Jr DO Addendum Signed By: 03/31/241243 Addendum Cosigned By: DD/ /15/1242 TD/TT: 03/31/2409/16/1243 STEREOTACTIC LEFT BREAST BIOPSY WITH VACUUM ASSISTED NEEDLE AND MARKING CLIP PLACEMENT: CLINICAL INDICATION: Suspicious left breast calcifications TECHNIQUE AND FINDINGS: The procedure, associated risks, benefits were discussed with the patient and written, informed consent was obtained. Stereotactic imaging was performed and the coordinates of the lesion were calculated. Following sterile preparation and local anesthetization with lidocaine, an 9-gauge [employer] vacuum assisted core biopsy needle was advanced into the breast. Documentation of the needle position was performed both before and after firing of the needle. Multiple core biopsy specimens were obtained of the area of concern. Before the needle was removed, a marking clip was placed. The postbiopsy stereotactic image confirmed clip deployment. There were no immediate postprocedural complications. MM/MM post biopsy LT w/CAD IMPRESSION: TECHNICALLY SUCCESSFUL LEFT BREAST STEREOTACTIC BIOPSY ENUMERATED ABOVE. LEFT BREAST SPECIMEN: Specimen radiograph of the tissue samples was obtained. There are multiple core tissue samples. Calcifications are seen within some of the tissue cores. IMPRESSION: STATUS POST SUCCESSFUL SAMPLING OF LEFT BREAST CALCIFICATIONS DIAGNOSTIC MAMMOGRAMS: Craniocaudal and lateral views of the left breast were performed post stereotactic biopsy using low dose digital technique. Comparison is made to the previous mammograms dated 03/14/2024. A marking clip is noted with 1.8 cm of inferior migration IMPRESSION: STATUS POST SUCCESSFUL STEREOTACTIC BIOPSY OF LEFT BREAST. 1.8 CM INFERIOR MIGRATION OF THE CLIP RELATIVE TO THE BIOPSY SITE. RESULT CODE: NL Impression dictated by: Rojelio Magallon Jr., D.O.03/28/2024 11:31 AM Dictation Location: DWS01 Transcribed By: MICHAEL 03/28/24 1131 Dictated By: Rojelio Magallon Jr, DO 03/28/24 1128 Signed By: 03/28/24 1131 Normal [facility] MM special view LT w/CADon 0 03-14-2024 MM special view LT w/CAD [facility] [place] [address] Mammography Report Signed Patient: Zari Velazquez MR#: [id number] 764 : 1970 Acct:[id number] Age/Sex: 53 / F ADM Date: 03/14/24 Loc: [place] Room: Type: [facility] Attending Dr: Heather Norwood DO Copies to: DO Heather Walters DO Ordering Provider: Heather Norwood DO Date of Service: 03/14/24 MM/MM special view LT w/CAD: R92.8 Left Diagnostic Full Field digital mammogram with 3-D imaging. Spot magnification views of the left breast with mediolateral view COMPARISON: 01/27/2024 HISTORY: Follow-up assessment of left breast microcalcifications BREAST COMPOSITION: Scattered fibroglandular densities of the breast parenchyma identified BREAST CALCIFICATIONS: Confirmation of pleomorphic grouping of microcalcifications. VASCULAR CALCIFICATIONS: None ARCHITECTURAL DISTORTION: None BREAST NODULE: None AXILLARY LYMPH NODES: Normal POSTSURGICAL CHANGES: None MM/MM special view LT w/CAD IMPRESSION: A small grouping of pleomorphic microcalcifications. Stereotactic biopsy recommended. RESULT CODE: 4 Suspicious Abnormality - Biopsy Considered DENSITY CODE: 2 (approximately 25-50% glandular) FOLLOW UP: BIO THE FALSE-NEGATIVE RATE OF MAMMOGRAPHY IS APPROXIMATELY 10%. IMAGING OF A PALPABLE ABNORMALITY MUST BE BASED ON CLINICAL GROUNDS. PATIENT WAS ENTERED INTO A REMINDER SYSTEM WITH A TARGET DUE DATE FOR THE NEXT MAMMOGRAM. Impression dictated by: Frantz Ornelas M.D.03/14/2024 9:15 AM Dictation Location: DWS01 Transcribed By: MICHAEL 03/14/2415 Dictated By: Frantz Ornelas DO 03/14/24 0912 Signed By: 03/14/24 0915 Normal [facility] Mammography reportOrdered By : Frantz Ornelas on 03-14-2024 Diagnostic imaging study [facility] [place] [address] [place], [place] [id number] Mammography Report Signed Patient: Zari Velazquez MR#: [id number] : 1970 Acct:[id number] Age/Sex: 53 / F ADM Date: 5 Loc: [place] Room: Type: [facility] Attending Dr: Heather Norwood DO Copies to: Inessa Fuentes,DO Heather Norwood DO~ Ordering Provider: Heather Norwood DO Date of Service: 03/14/24 MM/MM special view LT w/CAD: R92.8 Left Diagnostic Full Field digital mammogram with 3-D imaging. Spot magnification views of the left breast with mediolateral view COMPARISON: 01/27/2024 HISTORY: Follow-up assessment of left breast microcalcifications BREAST COMPOSITION: Scattered fibroglandular densities of the breast parenchyma identified BREAST CALCIFICATIONS: Confirmation of pleomorphic grouping of microcalcifications. VASCULAR CALCIFICATIONS: None ARCHITECTURAL DISTORTION: None BREAST NODULE: None AXILLARY LYMPH NODES: Normal POSTSURGICAL CHANGES: None MM/MM special view LT w/CAD IMPRESSION: A small grouping of pleomorphic microcalcifications. Stereotactic biopsy recommended. RESULT CODE: 4 Suspicious Abnormality - Biopsy Considered DENSITY CODE: 2 (approximately 25-50% glandular) FOLLOW UP: BIO THE FALSE-NEGATIVE RATE OF MAMMOGRAPHY IS APPROXIMATELY 10%. IMAGING OF A PALPABLE ABNORMALITY MUST BE BASED ON CLINICAL GROUNDS. PATIENT WAS ENTERED INTO A REMINDER SYSTEM WITH A TARGET DUE DATE FOR THE NEXT MAMMOGRAM. Impression dictated by: Frantz Ornelas M.D.03/14/2024 9:15 AM Dictation Location: [facility] Transcribed By: [facility] 03/14/24914 Dictated By: Frantz Ornelas DO 03/14/24911 Signed By: 03/14/24 0915 [facility] CT abdomen pelvis w meron CT abdomen pelvis w [facility] [address] [address] [address] Scan Report Signed Patient: Zari Velazquez MR#: [id number] 764 : 1970 Acct:[id number] Age/Sex: 53 / F ADM Date: 02/03/24 Loc: CT Room: Type: REG CLI Attending Dr: Anne Ortiz DO Copies to: Anne Ortiz DO Ordering Provider: Anne Ortiz DO Date of Service: 02/03/24 CT/CT abdomen pelvis w con: R10.11 - Right upper quadrant pain CT ABDOMEN AND PELVIS WITH INTRAVENOUS CONTRAST: CLINICAL HISTORY: Right-sided abdominal pain for one year with diarrhea bloating and belching COMPARISON: CT abdomen and pelvis 10/18/2020 TECHNIQUE: Spiral images were obtained through the abdomen and pelvis following the administration of intravenous contrast. This CT exam was performed using one or more following dose reduction t echniques: Automated exposure control, adjustment of the mA and/or kV according to patient size, or use of iterative reconstruction technique. FINDINGS: Lung Bases: [No acute findings.] Organs:Liver gallbladder portal vein spleen pancreas and adrenal glands appear unremarkable. No enhancing renal mass or hydronephrosis. Abdominal aorta appears normal in caliber.[ GI: Stomach is grossly unremarkable. Small bowel appears nondilated. Sigmoid diverticulosis.[ Pelvis:[Urinary bladder is grossly unremarkable. Uterus has been removed. No adnexal mass.] Peritoneum/Retroperitoneu m:No free air or free fluid or lymphadenopathy.[ Abd wall/Bones:Abdominal wall demonstrates no acute findings. Osseous structures demonstrate degenerative change.[ CT/CT abdomen pelvis w con IMPRESSION: No acute process. Sigmoid diverticulosis. Impression dictated by: Rojelio Magallon Jr., D.OJabari02/03/2024 9:51 AM Dictation Location: [place] [address] Transcribed By: [facility] 02/03/2451 Dictated By: Rojelio Magallon Jr, DO 02/03/24 0948 Signed By: 02/03/24 0951 Normal [facility] MM screening mammo BI w/CADo n 01-27-2024 MM screening mammo BI w/CAD [facility] [place] [address] Mammography Report Signed Patient: Zari Velazquez MR#: [id number] 764 : 1970 Acct:[id number] Age/Sex: 53 / F ADM Date: 01/27/24 Loc: [place] Room: Type: REG CLI Attending Dr: Referral Self Copies to: DO Heather Walters DO SELF,REFERRAL Ordering Provider: SELF,REFERRAL Date of Service: 01/27/24 MM/MM screening mammo BI w/CAD: SCREENING BILATERAL Screening Full Field digital mammogram with 3-D imaging. Full field digital CC and MLO imaging performed. CAD utilized. COMPARISON: 05/08/2022 HISTORY: Annual screening BREAST COMPOSITION: The breast parenchyma is heterogeneously dense. BREAST CALCIFICATIONS: A developing grouping of microcalcifications in the central portion of the left breast at a middle depth. VASCULAR CALCIFICATIONS: None ARCHITECTURAL DISTORTION: None BREAST NODULE: None AXILLARY LYMPH NODES: Normal POSTSURGICAL CHANGES: None MM/MM screening mammo BI w/CAD IMPRESSION: A developing grouping of microcalcifications in the central portion of the left breast at a middle depth. Spot magnification views recommended. RESULT CODE: 0 Incomplete: Needs Additional Imaging Evaluation DENSITY CODE: 3 (approximately 51-75% glandular) FOLLOW UP: ADD THE FALSE-NEGATIVE RATE OF MAMMOGRAPHY IS APPROXIMATELY 10%. IMAGING OF A PALPABLE ABNORMALITY MUST BE BASED ON CLINICAL GROUNDS. PATIENT WAS ENTERED INTO A REMINDER SYSTEM WITH A TARGET DUE DATE FOR THE NEXT MAMMOGRAM. Impression dictated by: Frantz Ornelas M.D.01/27/2024 3:40 PM Dictation Location: [facility] Transcribed By: [facility] 01/27/24 1540 Dictated By: Frantz Ornelas DO 01/27/24 1536 Signed By: 01/27/24 1540 Normal [facility] A1C with Estimated Average G xin 01-06-2024 Glucose [Mass/Vol] 114 mg/dL Normal [facility] Comment on above: Result Comment: PERF ORMED BY: [facility] [address] [place] [address] PATHOLOGIST PATTERN CUTTER SACHIN STATON M.D. Performed By: #### C BC, LIPID, ALEX, CMP, TSH3, A1C WTH eA, LIPASE, CUU ####[facility] [id number] [place] [address] [facility] HbA1c (Bld) [Mass fraction] 5.6 % Normal 4.3-5.6 [facility] Comment on above: Result Comment: Incr eased risk for diabetes: 5.7 - 6.4 diabetes: >6.4 glycemic control for adults with diabetes: <7.0 Performed By: #### C BC, LIPID, ALEX, CMP, TSH3, A1C WTH eA, LIPASE, CUU ####[facility] [id number] Amylaseon 01-06-2024 Amylase [Catalytic activity/Vol] 55 U/L Normal 29-103 [facility] Comment on above: Performed By: #### C BC, LIPID, ALEX, CMP, TSH3, A1C WTH eA, LIPASE, CUU #### [address] Complete Blood Count Auto Di ffon 01-06-2024 Basophils (Bld) [#/Vol] 0.0 10*3/uL Normal 0.0-0.2 [facility] Comment on above: Result Comment: PERF ORMED BY: [place] [address] PATHOLOGIST PATTERN CUTTER SACHIN STATON M.D. Performed By: #### C BC, LIPID, ALEX, CMP, TSH3, A1C WTH eA, LIPASE, CUU #### [address] Basophils/100 WBC (Bld) 0.4 % Normal . [facility] Comment on above: Performed By: #### C BC, LIPID, ALEX, CMP, TSH3, A1C WTH eA, LIPASE, CUU #### [address] Eosinophils (Bld) [#/Vol] 0.2 10*3/uL Normal 0.0-0.45 [facility] Comment on above: Performed By: #### C BC, LIPID, ALEX, CMP, TSH3, A1C WTH eA, LIPASE, CUU #### [place] [address] [place] Eosinophils/100 WBC (Bld) 3.8 % Normal . [facility] Comment on above: Performed By: #### C BC, LIPID, ALEX, CMP, TSH3, A1C WTH eA, LIPASE, CUU #### [address] Erythrocyte distribution width (RBC) [Ratio] 12.3 % Normal 11.9-15.3 [facility] Comment on above: Performed By: #### C BC, LIPID, ALEX, CMP, TSH3, A1C WTH eA, LIPASE, CUU #### [address] Hematocrit (Bld) [Volume fraction] 39.2 % Normal 34.0-46.4 [facility] Comment on above: Performed By: #### C BC, LIPID, ALEX, CMP, TSH3, A1C WTH eA, LIPASE, CUU #### [address] Hemoglobin (Bld) [Mass/Vol] 13.5 g/dL Normal 11.8-15.4 [facility] Comment on above: Performed By: #### C BC, LIPID, ALEX, CMP, TSH3, A1C WTH eA, LIPASE, CUU #### [address] Lymphocytes (Bld) [#/Vol] 1.5 10*3/uL Normal 1.00-4.8 [facility] Comment on above: Performed By: #### C BC, LIPID, ALEX, CMP, TSH3, A1C WTH eA, LIPASE, CUU #### [address] Lymphocytes/100 WBC (Bld) 32.9 % Normal . [facility] Comment on above: Performed By: #### C BC, LIPID, ALEX, CMP, TSH3, A1C WTH eA, LIPASE, CUU #### [address] MCH (RBC) [Entitic mass] 32.9 pg Normal 24.7-34.3 [facility] Comment on above: Performed By: #### C BC, LIPID, ALEX, CMP, TSH3, A1C WTH eA, LIPASE, CUU #### [address] MCV (RBC) [Entitic vol] 95.6 fL Normal 80-100 The [facility] Comment on above: Performed By: #### C BC, LIPID, ALEX, CMP, TSH3, A1C WTH eA, LIPASE, CUU #### [address] Mean Corpuscular HGB Conc 34.4 g/dL Normal 32.0-35.0 [facility] Comment on above: Performed By: #### C BC, LIPID, ALEX, CMP, TSH3, A1C WTH eA, LIPASE, CUU #### [address] Monocytes (Bld) [#/Vol] 0.4 10*3/uL Normal 0.0-0.8 [facility] Comment on above: Performed By: #### C BC, LIPID, ALEX, CMP, TSH3, A1C WTH eA, LIPASE, CUU #### [address] Monocytes/100 WBC (Bld) 7.9 % Normal . [facility] Comment on above: Performed By: #### C BC, LIPID, ALEX, CMP, TSH3, A1C WTH eA, LIPASE, CUU #### [address] Neutrophils (Bld) [#/Vol] 2.5 10*3/uL Normal 1.8-7.7 [facility] Comment on above: Performed By: #### C BC, LIPID, ALEX, CMP, TSH3, A1C WTH eA, LIPASE, CUU #### [address] Neutrophils/100 WBC (Bld) 55.0 % Normal . [facility] Comment on above: Performed By: #### C BC, LIPID, ALEX, CMP, TSH3, A1C WTH eA, LIPASE, CUU #### [address] NRBC% 0.1 /100{WBC} Normal 0-0.5 The [facility] Comment on above: Performed By: #### C BC, LIPID, ALEX, CMP, TSH3, A1C WTH eA, LIPASE, CUU #### [facility] [address] Platelet mean volume (Bld) [Entitic vol] 7.7 fL Normal 6.3-10.7 The [facility] Comment on above: Performed By: #### C BC, LIPID, ALEX, CMP, TSH3, A1C WTH eA, LIPASE, CUU #### [facility] [address] Platelets (Bld) [#/Vol] 314 10*3/uL Normal 150-450 The [facility] Comment on above: Performed By: #### C BC, LIPID, ALEX, CMP, TSH3, A1C WTH eA, LIPASE, CUU #### [facility] [address] RBC (Bld) [#/Vol] 4.10 10*6/uL Normal 3.60-5.00 The [facility] Comment on above: Performed By: #### C BC, LIPID, ALEX, CMP, TSH3, A1C WTH eA, LIPASE, CUU #### [address] WBC (Bld) [#/Vol] 4.5 10*3/uL Normal 3.8-11.6 The [facility] Comment on above: Performed By: #### C BC, LIPID, ALEX, CMP, TSH3, A1C WTH eA, LIPASE, CUU #### [address] Comprehensive Metabolic Pane grant 01-06-2024 Albumin [Mass/Vol] 4.4 g/dL Normal 3.5-5.7 The [facility] Comment on above: Performed By: #### C BC, LIPID, ALEX, CMP, TSH3, A1C WTH eA, LIPASE, CUU #### [address] Albumin/Globulin [Mass ratio] 1.5 {ratio} Normal [facility] Comment on above: Performed By: #### C BC, LIPID, ALEX, CMP, TSH3, A1C WTH eA, LIPASE, CUU #### [address] ALP [Catalytic activity/Vol] 85 U/L Normal 34-104 The [facility] Comment on above: Performed By: #### C BC, LIPID, ALEX, CMP, TSH3, A1C WTH eA, LIPASE, CUU #### [address] ALT [Catalytic activity/Vol] 21 U/L Normal 7-52 The [facility] Comment on above: Performed By: #### C BC, LIPID, ALEX, CMP, TSH3, A1C WTH eA, LIPASE, CUU #### [address] Anion gap [Moles/Vol] 11.0 mmol/L Normal 6.0-15.0 Th e [facility] Comment on above: Performed By: #### C BC, LIPID, ALEX, CMP, TSH3, A1C WTH eA, LIPASE, CUU #### [address] AST [Catalytic activity/Vol] 25 U/L Normal 13-39 The [facility] Comment on above: Performed By: #### C BC, LIPID, ALEX, CMP, TSH3, A1C WTH eA, LIPASE, CUU #### [address] Bilirubin [Mass/Vol] 0.6 mg/dL Normal 0.3-1.0 The [facility] Comment on above: Performed By: #### C BC, LIPID, ALEX, CMP, TSH3, A1C WTH eA, LIPASE, CUU #### [address] Calcium [Mass/Vol] 9.6 mg/dL Normal 8.6-10.3 The [facility] Comment on above: Performed By: #### C BC, LIPID, ALEX, CMP, TSH3, A1C WTH eA, LIPASE, CUU #### [address] Chloride [Moles/Vol] 102 mmol/L Normal 98-107 The [facility] Comment on above: Performed By: #### C BC, LIPID, ALEX, CMP, TSH3, A1C WTH eA, LIPASE, CUU #### [address] CO2 [Moles/Vol] 32.2 mmol/L High 21.0-31.0 The [facility] Comment on above: Performed By: #### C BC, LIPID, ALEX, CMP, TSH3, A1C WTH eA, LIPASE, CUU #### [address] Creatinine [Mass/Vol] 0.77 mg/dL Normal 0.60-1.20 The [facility] Comment on above: Performed By: #### C BC, LIPID, ALEX, CMP, TSH3, A1C WTH eA, LIPASE, CUU #### [address] GFR/1.73 sq M.predicted MDRD (S/P/Bld) [Vol rate/Area] mL/min/{1.73_m2} Normal [facility] Comment on above: Performed By: #### C BC, LIPID, ALEX, CMP, TSH3, A1C WTH eA, LIPASE, CUU #### [address] Globulin (S) [Mass/Vol] 3.0 g/dL Normal [facility] Comment on above: Performed By: #### C BC, LIPID, ALEX, CMP, TSH3, A1C WTH eA, LIPASE, CUU #### [address] Glucose [Mass/Vol] 101 mg/dL High 70-100 The [facility] Comment on above: Result Comment: [place] Glucose Reference Range is dependent on time and content of last meal. Glucose of more than 200 mg/dL in a nonstressed, ambulatory subject supports the diagnosis of Diabetes Mellitus. ADA recommended reference range Performed By: #### C BC, LIPID, ALEX, CMP, TSH3, A1C WTH eA, LIPASE, CUU #### [address] Potassium [Moles/Vol] 4.2 mmol/L Normal 3.5-5.1 The [facility] Comment on above: Performed By: #### C BC, LIPID, ALEX, CMP, TSH3, A1C WTH eA, LIPASE, CUU #### [address] Protein [Mass/Vol] 7.4 g/dL Normal 6.4-8.9 The [facility] Comment on above: Performed By: #### C BC, LIPID, ALEX, CMP, TSH3, A1C WTH eA, LIPASE, CUU #### [address] Sodium [Moles/Vol] 141 mmol/L Normal 136-145 The [facility] Comment on above: Performed By: #### C BC, LIPID, ALEX, CMP, TSH3, A1C WTH eA, LIPASE, CUU #### [address] Urea nitrogen [Mass/Vol] 11 mg/dL Normal 7-25 The [facility] Comment on above: Performed By: #### C BC, LIPID, ALEX, CMP, TSH3, A1C WTH eA, LIPASE, CUU #### [address] FPG ECG *PCP OFFICE ONLY*on 01-06-2024 FPG ECG *PCP OFFICE ONLY* [facility] [place] [address] Electrocardiograph Report Signed Patient: Zari Velazquez MR#: [id number] 764 : 1970 Acct:[id number] Age/Sex: 53 / F ADM Date: 01/06/24 Loc: EKGCAST Room: Type: [facility] Attending Dr: Inessa Fuentes DO Ordering Provider: Inessa Fuentes DO Date of Service: 01/06/24 ECG/FPG ECG *PCP OFFICE ONLY*: Z00.00 - Encounter for general adult medical examination ... Copies to: Test Reason : Blood Pressure : */* mmHG Vent. Rate : 72 BPM Atrial Rate : 72 BPM P-R Int : 144 ms QRS Dur : 80 ms QT Int : 382 ms P-R-T Axes : 66 74 68 degrees QTcB Int : 418 ms Normal sinus rhythm Normal ECG When compared with ECG of 27-Oct-2018 07:26, No significant change was found Confirmed by iVn Bliss ([id number]) on 01/06/2024 1:58:50 PM Referred By: Electronically Signed By: Vin Bliss Transcribed By: MUS Signed By Vin Bliss MD 01/06/24 1358 Normal [facility] Laboratory - Chemistry and C hemistry - challengeon 01-06-2024 Bilirubin Ql (U) Negative [facility] Glucose (U) [Mass/Vol] Negative [facility] Ketones Ql (U) Negative [facility] pH (U) 6.5 [pH] [facility] Specific gravity (U) [Rel density] 1.020 [facility] Urobilinogen (U) [Mass/Vol] 0.2 mg/dL [facility] Laboratory - Urinalysison Leukocyte esterase Test strip Ql (U) small [facility] Nitrite Ql (U) Negative [facility] Protein Ql (U) Negative [facility] Lipaseon 01-06-2024 Lipase [Catalytic activity/Vol] 60.0 U/L Normal 11.0-82.0 The [facility] Comment on above: Performed By: #### C BC, LIPID, ALEX, CMP, TSH3, A1C WTH eA, LIPASE, CUU #### [facility] [address] Lipid Panelon 01-06-2024 Cholesterol [Mass/Vol] 245 mg/dL High 140-200 Th e [facility] Comment on above: Result Comment: Chol less than 200 mg/dl low risk Chol 201-239 mg/dl borderline risk Chol 240 mg/dl and greater high risk Performed By: #### C BC, LIPID, ALEX, CMP, TSH3, A1C WTH eA, LIPASE, CUU #### [facility] [address] Cholesterol in HDL [Mass/Vol] 70 mg/dL Normal 23-92 The [facility] Comment on above: Result Comment: HDL CHOL ATP-III CLASSIFICATION Cardiovascular Risk HDL > or equal to 60 mg/dL LOW HDL < 40 mg/dL HIGH Performed By: #### C BC, LIPID, ALEX, CMP, TSH3, A1C WTH eA, LIPASE, CUU #### [facility] [address] Cholesterol.total/Chol esterol in HDL [Mass ratio] 3.5 {ratio} Normal <5.0 The [facility] Comment on above: Performed By: #### C BC, LIPID, ALEX, CMP, TSH3, A1C WTH eA, LIPASE, CUU #### [facility] [address] LDL Cholesterol,Calculated 144 mg/dL High 0-100 The [facility] Comment on above: Result Comment: LDL ATP III CLASSIFICATION LDL less than 100 mg/dL Optimal LDL 100-129 mg/dL Near or above optimal LDL 130-159 mg/dL Borderline high LDL 160-189 mg/dL High LDL greater than 189 mg/dL Very high Performed By: #### C BC, LIPID, ALEX, CMP, TSH3, A1C WTH eA, LIPASE, CUU #### [facility] [address] Triglyceride w/Reflex 154 mg/dL High 0-149 The [facility] Comment on above: Result Comment: TRIG ATP III CLASSIFICATION TRIG less than 150 mg/dL Normal TRIG 150-199 mg/dL Borderline high TRIG 200-500 mg/dL High TRIG greater than 500 mg/dL Very high Standard traceable to the Center for Disease Conrtrol and Prevention (CDC) test method. Performed By: #### C BC, LIPID, ALEX, CMP, TSH3, A1C WTH eA, LIPASE, CUU #### [facility] [address] VLDL CHOLESTEROL 30 mg/dL Normal The [facility] Comment on above: Performed By: #### C BC, LIPID, ALEX, CMP, TSH3, A1C WTH eA, LIPASE, CUU #### [facility] [address] No Panel Informationon 01-05 Urine Occult Blood Negative [facility] Thyroid Stimulating Hormoneo n 01-06-2024 TSH Qn 2.86 m[IU]/L Normal 0.45-5.33 The [facility] Comment on above: Result Comment: PERF ORMED BY: [place] [address] PATHOLOGIST PATTERN CUTTER SACHIN STATON M.D. Performed By: #### C BC, LIPID, ALEX, CMP, TSH3, A1C WTH eA, LIPASE, CUU #### [facility] [address] Urine Cultureon 01-06-2024 Bacteria identified Cx Nom (U) <9,000 colonies/ml mixed bacterial skin contaminants 2 Days PERFORMED BY: [place] [address] PATHOLOGIST PATTERN CUTTER SACHIN STATON M.D. Normal The [facility] Comment on above: Performed By: #### C BC, LIPID, ALEX, CMP, TSH3, A1C WTH eA, LIPASE, CUU ####[facility] Ambulatory Visit Summaryon 0 11-16-2023 Ambulatory Visit Summary Ambulatory Visit Summary FRANTZ VELAZQUEZCYNTHIA Yu :1970 Visit Date:11/16/2023 Ambulatory Visit Instructions Your Diagnosis Stye external Your Care Team Attending Physician - EDWIN WEAVER PA-C Primary Care Physician - INESSA FUENTES DO This Is Your Medications List ofloxacin ophthalmic (ofloxacin Opth 0.3% Marla) omeprazole (omeprazole 40 mg Cap-DR) Discharge Vitals Temperature (Oral) 36.8 ?C Heart Rate (Peripheral) 79 Blood Pressure 132/86 Height 165 cm Height 65 in Weight 86 kg Weight 189.2 lb BMI 31.59 Medications What How Much When Why Instructions New ofloxacin ophthalmic (ofloxacin Opth 0.3% Marla) 2 Drops Ophthalmic 4 times a day Stye external Duration: 5 Days Pickup at [facility]/pharmacy #[id number] Unchanged omeprazole (omeprazole 40 mg Thien) Pharmacy Information [facility]/pharmacy #[id number]: [address] [place] [phone] Allergies No Known Allergies Patient Survey You may receive a survey via text or e-mail asking about your office visit. Please share your experience with us by completing your survey. We appreciate your feedback and thank you for choosing us for your care. Normal [facility] Family Medicine Office/Clini c Noteon 11-16-2023 Family Medicine Office/Clinic Note Family Medicine Office/Clinic Note Chief Complaint sty HPI Staff 53 year old female presents with sty on left eye x 10 days. red and swelling under the eye. Pt has used hot compress and coconutoil/teatree. OTC stops and sty relief meds used with no relief History of Present Illness Reviewed and agree with above documented HPI by medical hospital sales. Portions of this record may have been created with voice recognition artificial intelligence software, specifically [employer], ScreenTag and or [employer]. Substitutions may have occurred due to the inherent limitations of voice recognition and artificial intelligence software. Patient is a 53-year-old female who presents to [facility] care, for styes is located in left lower eyelid, patient states the stye was small first about 10 days ago, she tried to express it, she has been applying compresses. Treating it with coconut oil and tea tree tea, patient states this time increase symptoms size redness, states she is not having any discomfort, has been trying btys-wki-xgnuitt medications without any relief, patient denies having any injuries, acute visual changes, photophobia, eye pain, drainage or bleeding, fevers, or facial paresthesias. Review of Systems PHQ Score Initial Depression Screen Score: 0 SCORE Physical Exam Vitals & Measurements T: 36.8 ?C(Oral) HR: 79(Peripheral) BP: 132/86 SpO2: 96% HT: 65 in HT: 165 cm WT: 86 kg WT: 189.2 lb BMI: 31.59 General: Well developed, well nourished, in no acute distress. Patient does not appear ill or septic. No respiratory distress. Patient answers questions appropriately and in complete sentences, and follows commands appropriately. Head: Normocephalic/atraumatic. No upper respiratory infection. Eyes: Positive stye, medial, of the left lower eyelid, with some redness, healing scab, possibly from being expressed, no left eye redness, pain, conjunctivitis, subconjunctival hemorrhage, uveitis, iritis, edema, globe trauma noted. No photophobia. Right eye within normal limits. Pupils equal, round, and reactive to light. Conjunctivae and sclerae normal Ears: Bilateral TMs and bilateral external canals are both within normal limits. Hearing is intact. Nose: No deformity, discharge, inflammation, or lesions Mouth: Mucous membranes moist. Normal oropharynx, and posterior pharynx without, exudates, postnasal drip, lesions, or enlarged tonsils. No trismus. No difficulty swallowing. Neck: Neck supple. No masses or palpable cervical nodes. No mastoid tenderness. Neurologic: Grossly normal Skin: No rashes, ulcerations, or suspicious lesions Lymph Nodes: no lad Mental Status: alert, active Assessment/Plan 53-year-old female presented convenient care, for left external eye, with redness, swelling, no drainage or bleeding, no facial paresthesias. No acute visual changes. No photophobia. Patient was given a prescription for ofloxacin eyedrops, instructed to continue warm compresses, not to apply any over the counter medications, take qrbl-siv-wjnujzd ibuprofen times needed for pain or fever, and follow-up with primary care provider as needed. 1. Stye external (H00.019: Hordeolum externum unspecified eye, unspecified eyelid) See above Ordered: ofloxacin ophthalmic, 2 drop(s), OPTH, QID for 5 day(s), 10 mL, Refill(s) 0, [facility]/pharmacy #[id number], 165, cm, 11/16/23 11:26:00 EDT, Height/Length Dosing, 86, kg, 11/16/23 11:26:00 EDT, Weight Dosing 2. BMI 31.0-31.9,adult (Z68.31: Body mass index [BMI] 31.0-31.9, adult) The standard range for ages 18 and older is >=18.5 and < 25 kg/m2. Your BMI today was above this range, this falls in the overweight to obese category and there are medical benefits to weight loss. We can offer counselling, referral, and/or medical support in addressing this problem. Your BMI and weight management will be followed at subsequent visits. Follow-up With When Contact Information GINA MCMILLAN, INESSA, FAM [address] [place] [address]- Additional Instructions: Patient Education BMI for Adults Stye Problem List/Past Medical History Ongoing No chronic problems Historical No qualifying data Medications ofloxacin Opth 0.3% Marla, 2 drop(s), OPTH, QID omeprazole 40 mg Reza- Allergies No Known Allergies Social History Tobacco Former smoker, quit more than 30 days ago Tobacco Use:. Never Smokeless Tobacco Use:. Cigarettes, 11/16/2023 Immunizations Vaccine Date Status SARS-CoV-2 (COVID-19) mRNA BNT-162b2 vax 08/13/2020 Recorded SARS-CoV-2 (COVID-19) mRNA BNT-162b2 vax 07/16/2020 Recorded Normal [facility] Comment on above: Result Comment: Elec tronically Signed By: MEG CHAPMAN, EDWIN\.br\Date and Time Signed: 11/16/23 17:29 EDT Grant 07-05-2023 L Specimen: [id number] Received: 07/06/23 Status: JEREMY Hagan Num: [id number] Spec Type: Cytology Subm Dr: Fausto Veliz DO Tissues: A FNA SLIDES NOPATH (RIGHT THYROID) Procedures: Cyto Int and Re, PAPSTN/17 Age/ Patient Sex Location Account Attending Physician RobbieZari A 53/F JOSE [id number] Fausto Veliz DO SPEC NUM: [id number] RECD: 07/06/23 STATUS: JEREMY HAGAN NUM: [id number] JAMESON: 07/05/[address]: Fausto Veliz DO ENTERED: 07/06/[address]: SPEC TYPE: Cytology DEPT: CNG ENTERED BY: [id number] RECV BY: [id number] ORDERED: Cyto Int and Re, PAPSTN/17 ORDERED: Cyto Int and Re, PAPSTN/17 Pathological Diagnosis Right thyroid, FNA:? Negative For Malignant Cells. Follicular Cells With Abundant Colloid, Consistent With A Benign Follicular Nodule. [place] Category II Clinical Information Thyroid Nodule Gross Description Received in Cytolyt labeled with the patient's name, date of and Right thyroid per requisition is <1 ml blood tinged fixed fluid. 1 Thin Prep slides are prepared. 16 alcohol fixed smears for pap and a Veracyte vial stored at -20 are additionally received.(NC/mi) CPT Codes 16407 Specimen: [id number] Received: 07/06/23 Status: JEREMY Hagan Num: [id number] Spec Type: Cytology Subm Dr: Fausto Veliz DO Tissues: A FNA SLIDES NOPATH (RIGHT THYROID) Procedures: Cyto Int and Re, PAPSTN/17 Patient: Zari Velazquez [id number] (Continued) Signed (signature on file) Sachin Staton MD 07/08/23 1907 Normal [facility] 05-03-2023 [facility] Telephone ([email or web address]) ----- ZARI VELAZQUEZ ([id number]) 1970 F Date Time Provider Department 05/03/23 JOSE SINHA JR During your visit today, we recorded the following information about you: Lacey Patterson RN 05/03/2023 12:36 PM Signed ----- Message from Jose Sinha Jr., DO sent at 04/30/2023 4:18 PM EST ----- HIDA unremarkable Jose Sinha Jr. DO Allergies As of Date: 05/03/2023 (No Known Allergies) Date Reviewed: 04/29/2023 Reviewed by: Carolyn Acosta RT(R) - Fully Assessed Reason for Visit: Results [95] Prescriptions as of 05/03/2023 - MULTIVITAMIN ORAL 1 tablet. - ALPRAZolam (XANAX) 0.25 mg tablet As Directed - loperamide (IMODIUM) 2 mg cap(s) EVERY 1-2 HOURS - omeprazole (PRILOSEC) 40 mg capsule TAKE 1 CAPSULE BY MOUTH TWICE A DAY FOR 90 DAYS - sucralfate (CARAFATE) 1 gram tablet Take 1 tablet by mouth every afternoon. - MEDICATION, NON-DATABASE Take 1 tablet by mouth three times a day before meals. ESSENTIALZYME - Dietary supplement Problem List As Of Date: 05/03/2023 (None) Encounter Status:Closed by LACEY PATTERSON RN on 05/03/23 [facility] Telephone ([email or web address]) ----- ZARI VELAZQUEZ ([id number]) 1970 F Date Time Provider Department 04/30/23 JOSE SINHA JR During your visit today, we recorded the following information about you: Lacey Patterson RN 04/30/2023 8:59 AM Signed Pt is a Ly pt currently at radiology having HIDA but the order needs to have EF. Please review and sign if agreeable. Thank you Lacey Patterson RN Allergies As of Date: 04/30/2023 (No Known Allergies) Date Reviewed: 04/29/2023 Reviewed by: Carolyn Acosta, RT(R) - Fully Assessed Reason for Visit: Orders [681] Cmt: HIDA w/EF Primary Visit Diagnosis:Dyspepsia [R10.13] Other Visit Diagnosis:Generalized abdominal pain [R10.84] Order(s):NM HEPATOBILIARY W EF AND/OR RX [[id number]] Order #: [id number] FUTURE Prescriptions as of 04/30/2023 - MULTIVITAMIN ORAL 1 tablet. - ALPRAZolam (XANAX) 0.25 mg tablet As Directed - loperamide (IMODIUM) 2 mg cap(s) EVERY 1-2 HOURS - omeprazole (PRILOSEC) 40 mg capsule TAKE 1 CAPSULE BY MOUTH TWICE A DAY FOR 90 DAYS - sucralfate (CARAFATE) 1 gram tablet Take 1 tablet by mouth every afternoon. - MEDICATION, NON-DATABASE Take 1 tablet by mouth three times a day before meals. ESSENTIALZYME - Dietary supplement Problem List As Of Date: 04/30/2023 (None) Encounter Status:Closed by LACEY PATTERSON RN on 04/30/23 Normal [facility] Biliary ducts and Gallbla dder Views for patency of biliary structures and ejection fraction W sincalide and W radionuclide Justin 04-30-2023 [facility] HEPATOBILIARY W EF AND/OR RXon 04-30-2023 NM HEPATOBILIARY W EF AND/OR RX * * *Final Report* * * DATE OF EXAM: Apr 30 2023 3:20PM [facility] 0021 - [place] HEPATOBILIARY W EF AND/OR RX / PROCEDURE REASON: multiple diagnoses * * * * Physician Interpretation * * * * EXAM: HEPATOBILIARY SCAN WITH GALLBLADDER EJECTION FRACTION HISTORY: Dyspepsia Generalized abdominal pain TECHNIQUE: 5.6 mCi Tc-99m Choletec administered IV followed by 60 minutes of dynamic abdominal imaging. Next, 1.66 mcg CCK administered IV with additional imaging to calculate a gallbladder ejection fraction. CORRELATION: None available RESULTS: Liver: Prompt, homogeneous uptake with activity in the major bile ducts. Gallbladder: * Gallbladder activity present within 60 minutes, indicating cystic duct patency. * Ejection fraction (EF): 72% (normal > 35% and < 80%) CBD: Proximal small bowel activity within 60 minutes, indicating patency. Other: No duodenogastric reflux. IMPRESSION: Normal gallbladder ejection fraction. Digital Asset Specialist: FEMI Transcribe Date/Time: Apr 30 2023 3:20P Dictated by : PETER TANNER MD This examination was interpreted and the report reviewed and electronically signed by: PETER TANNER MD on Apr 30 2023 3:22PM EST [id number] [facility] 04-29-2023 [facility] Telephone (AVXRHI) ----- ZARI VELAZQUEZ ([id number]) 1970 F Date Time Provider Department 04/29/23 CAROLYN ACOSTA [facility] During your visit today, we recorded the following information about you: Carolyn Acosta, RT(R) 04/29/2023 5:28 PM Signed Spoke with patient confirming arrival of 12:45. Explained test, prep and restrictions. Answered her questions. Allergies As of Date: 04/29/2023 (No Known Allergies) Date Reviewed: 04/29/2023 Reviewed by: Carolyn Acosta RT(R) - Fully Assessed Reason for Visit: Radiology NM [1015] Cmt: Appointment reminder. Prescriptions as of 04/29/2023 - MULTIVITAMIN ORAL 1 tablet. - ALPRAZolam (XANAX) 0.25 mg tablet As Directed - loperamide (IMODIUM) 2 mg cap(s) EVERY 1-2 HOURS - omeprazole (PRILOSEC) 40 mg capsule TAKE 1 CAPSULE BY MOUTH TWICE A DAY FOR 90 DAYS - sucralfate (CARAFATE) 1 gram tablet Take 1 tablet by mouth every afternoon. - MEDICATION, NON-DATABASE Take 1 tablet by mouth three times a day before meals. ESSENTIALZYME - Dietary supplement Problem List As Of Date: 04/29/2023 (None) Encounter Status:Closed by CAROLYN ACOSTA on 04/29/23 [facility] 04-16-2023 [facility] HNO ID: [id number] Author: GIANCARLO RUBALCAVA RT(R) Service: Nuclear Medicine Author Type: Technologist Type: Allied Health Filed: 04/16/2023 10:15 Note Text: RADIOLOGY SERVICE PROGRESS NOTE SERVICE DATE: 04/16/2023 SERVICE TIME: 10:15 AM PATIENT IDENTITY VERIFICATION COMPLETED USING TWO (2) STANDARD IDENTIFIERS: Name and Date of confirmed by patient verbally FALL SCREENING: Has the patient had 2 falls in the last year or 1 fall with injury or currently using an Ambulatory Assistive Device (Walker, Cane, Wheelchair, Crutches, etc.)? No PATIENT GENDER DATA: .female ALLERGIES: Reviewed and unchanged MEDICATIONS REVIEWED: No PATIENT RELEVANT IMPLANT DATA REVIEWED: Not Applicable PATIENT PRESENTS WITH AN IMPLANTABLE OR ATTACHED DRY CLEANING ATTENDANT: No CREATININE: No results found for: CREAT , EGFROTH , EGFRAA P.O.C.T. RESULTS: N/A April 16, [address] PERFORMED: No IV SITE: NM only - not applicable, oral or physician administered agents given to patient POST EXAM PIV STATUS: Not applicable PROCEDURE TYPE: NM GET: 1.1 mCi Tc99m SULFUR COLLOID was administered orally via 4 ounces of Egg Beaters,2 pieces of toast, 1 ounce of jelly with 8 ounces of water orally ADMINISTRATION TIME: 10:13 PATIENT DISCHARGED TO: Ambulatory patient, left [place] department area. A Diagnostic radioactive procedure has taken place, with no further precautions necessary other than routine body substance precautions. More information regarding radiation safety can be found using this link: [email or web address] [email or web address]%20Nuclear%20 Medicine%[email or web address] SIGNATURE: RT Jamaal(R) PATIENT NAME: Zari Yu Robbie DATE: April 16, 2023 TIME: 10:15 AM PAGER/CONTACT #: [facility] GASTRIC EMPTYING SOLIDon 04-16-2023 [place] GASTRIC EMPTYING SOLID * * *Final Report* * * DATE OF EXAM: Apr 16 2023 2:49PM [facility] 0017 - NC GASTRIC EMPTYING SOLID / PROCEDURE REASON: Dyspepsia * * * * Physician Interpretation * * * * EXAM: SOLID MEAL GASTRIC EMPTYING STUDY HISTORY: Dyspepsia TECHNIQUE: 1.1 millicuries of Tc-99m sulfur colloid was administered PO in a solid meal consumed over 10 minutes. Planar images of the gastric region were obtained at 0, 1, 2, and 4 hours. Geometric means were used to calculate gastric retention values. * Patient's ingested solid meal: 4 ounces of egg beater 2 pieces of toast 1 ounce of jelly and 8 ounces of water * Reference standard solid meal: 4 ounces of Egg Beaters, 2 slices of toast, 1 ounce of jelly, and 8 ounces of water COMPARISON: No relevant prior imaging available RESULTS: Calculated solid meal (or solid meal equivalent) gastric retention values: * 73% retention at 1 hour (normal range, 37-90%; accelerated emptying is defined as <30% at 1 hour) * 24% retention at 2 hours (normal range, <60%) * 0% retention at 4 hours (normal range, <10%) IMPRESSION: Normal gastric emptying rate for the solid meal. Digital Asset Specialist: FEMI Transcribe Date/Time: Apr 16 2023 2:51P Dictated by : GILLIAN HICKEY MD This examination was interpreted and the report reviewed and electronically signed by: GERA TA MD on Apr 16 2023 4:03PM EST [id number] [facility] Stomach Views for gastric emptying solid phase W radionuclide Fidelia 04-16-2023 [facility] 04-15-2023 [facility] Telephone (QUINTINHI) ----- ZARI VELAZQUEZ ([id number]) 1970 F Date Time Provider Department 04/15/23 CAROLYN ACOSTAHI During your visit today, we recorded the following information about you: Carolyn Acosta RT(R) 04/15/2023 4:56 PM Signed No answer so left voice mail. Asked her to arrive at 9:45. Explained test, restrictions and prep. Allergies As of Date: 04/15/2023 (No Known Allergies) Date Reviewed: 04/14/2023 Reviewed by: Carolyn Acosta RT(R) - Fully Assessed Reason for Visit: Radiology NM [1993] Cmt: Appointment reminder. Prescriptions as of 04/15/2023 - MULTIVITAMIN ORAL 1 tablet. - ALPRAZolam (XANAX) 0.25 mg tablet As Directed - loperamide (IMODIUM) 2 mg cap(s) EVERY 1-2 HOURS - omeprazole (PRILOSEC) 40 mg capsule TAKE 1 CAPSULE BY MOUTH TWICE A DAY FOR 90 DAYS - sucralfate (CARAFATE) 1 gram tablet Take 1 tablet by mouth every afternoon. - MEDICATION, NON-DATABASE Take 1 tablet by mouth three times a day before meals. ESSENTIALZYME - Dietary supplement Problem List As Of Date: 04/15/2023 (None) Encounter Status:Closed by CAROLYN ACOSTA on 04/15/23 [facility] 03-25-2023 [facility] Telephone (TAYLORNO) ----- ZARI VELAZQUEZ ([id number]) 1970 F Date Time Provider Department 03/25/23 ANNE ORTIZ During your visit today, we recorded the following information about you: Lacey Patterson RN 03/25/2023 2:54 PM Signed ----- Message from Anne Ortiz DO sent at 03/25/2023 1:40 PM EST ----- Please review results of XR with pt which shows now acute abnormalities. On my review she does have some small to mod stool burden. See If pt willing to add 1/2 cap miralax once daily to see if that helps with her symptoms at all. Continue plan as we otherwise discussed in the office. Thanks cl Lacey Patterson RN 03/25/2023 2:55 PM Signed Patient aware of results and/or instructions per Dr. Ortiz and will try the 1/2 cap Miralax daily Lacey Patterson RN Allergies As of Date: 03/25/2023 (No Known Allergies) Date Reviewed: 03/24/2023 Reviewed by: Blanche Mari Ma - Fully Assessed Reason for Visit: Results [95] Prescriptions as of 03/25/2023 - MULTIVITAMIN ORAL 1 tablet. - ALPRAZolam (XANAX) 0.25 mg tablet As Directed - loperamide (IMODIUM) 2 mg cap(s) EVERY 1-2 HOURS - omeprazole (PRILOSEC) 40 mg capsule TAKE 1 CAPSULE BY MOUTH TWICE A DAY FOR 90 DAYS - sucralfate (CARAFATE) 1 gram tablet Take 1 tablet by mouth every afternoon. - MEDICATION, NON-DATABASE Take 1 tablet by mouth three times a day before meals. ESSENTIALZYME - Dietary supplement Problem List As Of Date: 03/25/2023 (None) Encounter Status:Closed by LACEY PATTERSON RN on 03/25/23 [facility] CNOVon 03-24-2023 CNOV Office Visit (GASTAV ) ----- ZARI VELAZQUEZ ([id number]) 1970 F Date Time Provider Department 03/24/23 11:20 AM ANNE ORTIZ During your visit today, we recorded the following information about you: Pulse Blood pressure Weight Height 90/minute 127/80 83.2 kg 1.638 m DianaAnneDO 03/24/2023 3:19 PM Signed Chief Compliant: Consultation requested by Dr. Inessa Fuentes for an opinion regarding early satiety, bloating, irregular bm. My final recommendations will be communicated back to the requesting physician by way of shared Medical record or letter to requesting physician via US mail. HPI: Zari Velazquez is a 52 year old female with PMH significant for GERD, gastritis who presents for early satiety, irregular bowels, bloating. Pt reports symptoms for yrs. Describes as significant bloating and belching. BM are caaetzoyi-1-1 per day on average, loose/runny/mushy in consistency, urgency, no incontinence, lower abd pain intermittently, +nausea but no vomiting. Only eats one meal a day because she feels that food moving slowly through her system and she is not digesting things. Gets full quickly. Denies any fevers, chills, dysphagia, sob, cp, palpitations, signs of bleeding, anorexia or wt loss-unable to lose wt. Has had multiple EGD/colonoscopy-reviewed available records below. Celiac serology has been negative. She had her GB evaluated in 2019-results limited but she did see a surgery and he did recommend holding on surgery at that time. She has tried fiber in the past but it caused worsening symptoms. She recently did a clean detoxifying diet x 1 month and does note feeling better on the diet-was having improved bm but continued to have persistence of some of her other symptoms. No fam hx of GI malignancy. Reviewed available labs and imaging. 12/28/22 noted in Care everywhere Dec, Irritable bowel syndrome with diarrhea (ICD-10 - K58.0) Patient had followed with Dr. Sinha in the past until he left [place], then patient was set up with Dr. Drake but made no progress. Therefore patient was scheduled with the [facility] but doesnt see them for another two months. Patient had voiced interest in getting a consult with Dr. Erwin to see what he has to say. I am agreeable, I did disucss with the patient based off her symptoms, she may have a pancreatic insufficiency. She is agreeable to the referral, this was initiated. 11/25/21 path from EGD with mapping per Dr. Sinha: Stomach antrum lesser curv. stomach antrum greater curv. Stomach body greater curv. (All negative for Stomach greater curv IM or dyplasia) Stomach fundus 11/29/20 EGD/colonoscopy were done per Dr. Sinha Normal EGD 2 flat small polyps, acending removed Random biopsies were taken Mild diverticulosis Path as follows: Stomach-chronic gastritis with intestinal metaplasia No dysplasia, negative HP Ascending polyp-hyperplastic Random biopsies were negative 10/27/18 path from EGD done per Dr. Navarrete as follows: Mild chronic gastritis negative HP Fundic gland polyp 03/29/18 air contrast esophagram with upper GI and small bowel series Tiny sliding type hiatal hernia and minor esoph dysmotility 03/08/17 EGD/colonoscopy were done: Few gastric polyps found 5 flat polyps found in ascending and transverse colon Last labs as follows: Basic Metabolic Panel on 01-03-2023 Anion gap [Moles/Vol] 10.8 mmol/L Normal [facility] [place] Comment on above: Performed By: #### BMP #### [facility] , Calcium [Mass/Vol] 8.8 mg/dL Normal 8.5-10.1 [facility] [place] Comment on above: Performed By: #### BMP #### [facility] , Chloride [Moles/Vol] 106 mmol/L Normal 98-107 [facility] [place] Comment on above: Performed By: #### BMP #### [facility] , CO2 [Moles/Vol] 26.8 mmol/L Normal 21.0-32.0 [facility] [place] Comment on above: Performed By: #### BMP #### [facility] , Creatinine [Mass/Vol] 0.65 mg/dL Normal 0.55-1.02 [facility] [place] Comment on above: Performed By: #### BMP #### [facility] , Estimated GFR ( Lindy >60 Potassium [Moles/Vol] 3.6 mmol/L Normal 3.5-5.1 [facility] [place] Comment on above: Performed By: #### BMP #### [facility] , Sodium [Moles/Vol] 140 mmol/L Normal 136-145 [facility] [place] Comment on above: Performed By: #### BMP #### [facility] , Urea nitrogen [Mass/Vol] 10.0 mg/dL Normal 7.0-18.0 [facility] [place] Comment on above: Performed By: #### BMP #### [facility] , Urea nitrogen/Creatinine [Mass ratio] 15.4 mg/mg Normal [facility] [place] Comment on above: Performed By: #### BMP #### [facility] , Basophil percentage on 01-03-2023 Chloride [Moles/Vol] 106 mmol/L Comprehensive Metabolic Panel on (more content not included)... Normal [facility] XR ABD 2V SUPINE W UPR/DECUB /CTLon 03-24-2023 XR ABD 2V SUPINE W UPR/DECUB/CTL * * *Final Report* * * DATE OF EXAM: Mar 24 2023 12:28PM VHX [id number] - XR ABD 2V SUPINE W UPR/DECUB/CTL / PROCEDURE REASON: Irregular bowel habits * * * * Physician Interpretation * * * * XR ABD 2V SUPINE W UPR/DECUB/CTL PROVIDED HISTORY: Irregular bowel habits COMPARISON: No previous similar exams are available for comparison TECHNIQUE: Supine and upright RESULT: Bowel gas pattern unremarkable. No definite renal stones. No free air is identified. Osseous structures appear grossly unremarkable IMPRESSION: No obstruction or free air seen Digital Asset Specialist: FEMI Transcribe Date/Time: Mar 24 2023 3:07P Dictated by : SVITLANA LUKE MD This examination was interpreted and the report reviewed and electronically signed by: SVITLANA LUKE MD on Mar 24 2023 3:07PM EST [id number] Normal [facility] Urine 10 SGon 12-28-2022 Albumin DL <= 20 mg/L (U) [Mass/Vol] Negative [facility] Other pH (U) 6.0 [pH] [facility] Other Urine 10 SG Negative [facility] Other Urine 10 SG 1.020 [facility] Other Urine 10 SG 0.2 [facility] Other Alanine aminotransferase [En zymatic activity/volume] in Serum or PlasmaOrdered By: Inessa Fuentes on 12-22-2022 ALT [Catalytic activity/Vol] 18 U/L 7-52 [facility] Albumin [Mass/volume] in Ser um or Plasma by Bromocresol green (BCG) dye binding methoOrdered By: Inessa Fuentes on 12-22-2022 Albumin BCG dye [Mass/Vol] 4.2 g/dL 3.5-5.7 [facility] Alkaline phosphatase [Enzyma tic activity/volume] in Serum or PlasmaOrdered By: Inessa Fuentes on 12-22-2022 ALP [Catalytic activity/Vol] 77 U/L 34-104 [facility] Aspartate aminotransferase [ Enzymatic activity/volume] in Serum or PlasmaOrdered By: Inessa Fuentes on 12-22-2022 AST [Catalytic activity/Vol] 20 U/L 13-39 [facility] Basophils Auto (Bld) [#/Vol] Ordered By: Inessa Fuentes on 12-22-2022 Basophils (Bld) [#/Vol] 0.0 10*3/uL 0.0-0.2 [facility] Basophils/100 WBC Auto (Bld) Ordered By: Inessa Fuentes on 12-22-2022 Basophils/100 WBC (Bld) 0.5 % . [facility] Bilirubin.total [Mass/volume ] in Serum or PlasmaOrdered By: Inessa Fuentes on 12-22-2022 Bilirubin [Mass/Vol] 0.6 mg/dL 0.3-1.0 [facility] Calcium [Mass/volume] in Ser um or PlasmaOrdered By: Inessa Fuentes on 12-22-2022 Calcium [Mass/Vol] 9.0 mg/dL 8.6-10.3 [facility] Carbon dioxide, total [Moles /volume] in Serum or PlasmaOrdered By: Inessa Fuentes on 12-22-2022 CO2 [Moles/Vol] 32.1 mmol/L 21.0-31.0 [facility] Chloride [Moles/volume] in S dolores or PlasmaOrdered By: Inessa Fuentes on 12-22-2022 Chloride [Moles/Vol] 104 mmol/L 98-107 [facility] Cholesterol [Mass/volume] in Serum or PlasmaOrdered By: Inessa Fuentes on 12-22-2022 Cholesterol [Mass/Vol] 246 mg/dL 140-200 [facility] Comment on above: Chol less than 200 m g/dl low riskChol 201-239 mg/dl borderline riskChol 240 mg/dl and greater high risk Cholesterol in LDL Calc [Mas s/Vol]Ordered By: Inessa Fuentes on 12-22-2022 Cholesterol in LDL [Mass/Vol] 148 mg/dL 0-100 [facility] Comment on above: LDL ATP III CLASSIFI CATIONLDL less than 100 mg/dL OptimalLDL 100-129 mg/dL Near or above optimalLDL 130-159 mg/dL Borderline highLDL 160-189 mg/dL HighLDL greater than 189 mg/dL Very high Cholesterol in VLDL Calc [Ma ss/Vol]Ordered By: Inessa Fuentes on 12-22-2022 Cholesterol in VLDL [Mass/Vol] 36 mg/dL [facility] Creatinine [Mass/volume] in Serum or PlasmaOrdered By: Inessa Fuentes on 12-22-2022 Creatinine [Mass/Vol] 0.70 mg/dL 0.60-1.20 [facility] Eosinophils Auto (Bld) [#/Vo l]Ordered By: Inessa Fuentes on 12-22-2022 Eosinophils (Bld) [#/Vol] 0.2 10*3/uL 0.0-0.45 [facility] Eosinophils/100 WBC Auto (Bl d)Ordered By: Inessa Fuentes on 12-22-2022 Eosinophils/100 WBC (Bld) 3.4 % . [facility] Erythrocyte distribution wid th Auto (RBC) [Ratio]Ordered By: Inessa Fuentes on 12-22-2022 Erythrocyte distribution width (RBC) [Ratio] 12.3 % 11.9-15.3 [facility] Globulin Calc (S) [Mass/Vol] Ordered By: Inessa Fuentes on 12-22-2022 Globulin (S) [Mass/Vol] 2.6 g/dL [facility] Glucose [Mass/volume] in Ser um or PlasmaOrdered By: Inessa Fuentes on 12-22-2022 Glucose [Mass/Vol] 101 mg/dL 70-100 [facility] Comment on above: ADA recommended refe rence rangeRandom Glucose Reference Range is dependent on time and content of last meal. Glucose of more than 200 mg/dL in a nonstressed, ambulatory subject supports the diagnosis of Diabetes Mellitus. Hematocrit Auto (Bld) [Volum e fraction]Ordered By: Inessa Fuentes on 12-22-2022 Hematocrit (Bld) [Volume fraction] 37.7 % 34.0-46.4 [facility] Hemoglobin [Mass/volume] in BloodOrdered By: Inessa Fuentes on 12-22-2022 Hemoglobin (Bld) [Mass/Vol] 12.8 g/dL 11.8-15.4 [facility] Leukocytes [#/volume] correc yeison for nucleated erythrocytes in Blood by Automated counOrdered By: Inessa Fuentes on 12-22-2022 WBC corrected for nucl RBC Auto (Bld) [#/Vol] 4.7 10*3/uL 3.8-11.6 [facility] Lymphocytes Auto (Bld) [#/Vo l]Ordered By: Inessa Fuentes on 12-22-2022 Lymphocytes (Bld) [#/Vol] 1.4 10*3/uL 1.00-4.8 [facility] Lymphocytes/100 WBC Auto (Bl d)Ordered By: Inessa Fuentes on 12-22-2022 Lymphocytes/100 WBC (Bld) 28.9 % . [facility] MCH Auto (RBC) [Entitic mass ]Ordered By: Inessa Fuentes on 12-22-2022 MCH (RBC) [Entitic mass] 32.8 pg 24.7-34.3 [facility] MCHC Auto (RBC) [Mass/Vol]Or dered By: Inessa Fuentes on 12-22-2022 MCHC (RBC) [Mass/Vol] 34.0 g/dL 32.0-35.0 [facility] MCV Auto (RBC) [Entitic vol] Ordered By: Inessa Fuentes on 12-22-2022 MCV (RBC) [Entitic vol] 96.4 fL 80-100 [facility] Monocytes Auto (Bld) [#/Vol] Ordered By: Inessa Fuentes on 12-22-2022 Monocytes (Bld) [#/Vol] 0.4 10*3/uL 0.0-0.8 [facility] Monocytes/100 WBC Auto (Bld) Ordered By: Inessa Fuentes on 12-22-2022 Monocytes/100 WBC (Bld) 7.5 % . [facility] Neutrophils Auto (Bld) [#/Vo l]Ordered By: Inessa Fuentes on 12-22-2022 Neutrophils (Bld) [#/Vol] 2.8 10*3/uL 1.8-7.7 [facility] Neutrophils/100 WBC Auto (Bl d)Ordered By: Inessa Fuentes on 12-22-2022 Neutrophils/100 WBC (Bld) 59.7 % . [facility] No Panel InformationOrdered By: Inessa Fuentes on 12-22-2022 Estimated GFR (CKD-EPI) > 60.0 mL/Min [facility] Creatinine Clearance (Chem N/A [facility] Nucleated erythrocytes [Pres ence] in Blood by Automated countOrdered By: Inessa Fuentes on 12-22-2022 Nucleated RBC Auto Ql (Bld) 0.1 /100{WBC} 0-0.5 [facility] Platelet mean volume Auto (B ld) [Entitic vol]Ordered By: Inessa Fuentes on 12-22-2022 Platelet mean volume (Bld) [Entitic vol] 7.6 fL 6.3-10.7 [facility] Platelets Auto (Bld) [#/Vol] Ordered By: Inessa Fuentes on 12-22-2022 Platelets (Bld) [#/Vol] 307 10*3/uL 150-450 [facility] Potassium [Moles/volume] in Serum or PlasmaOrdered By: Inessa Fuentes on 12-22-2022 Potassium [Moles/Vol] 4.1 mmol/L 3.5-5.1 [facility] Protein [Mass/volume] in Ser um or PlasmaOrdered By: Inessa Fuentes on 12-22-2022 Protein [Mass/Vol] 6.8 g/dL 6.4-8.9 [facility] RBC Auto (Bld) [#/Vol]Ordere d By: Inessa Fuentes on 12-22-2022 RBC (Bld) [#/Vol] 3.91 10*6/uL 3.60-5.00 [facility] Serum or plasma albumin/glob ulin mass ratioOrdered By: Inessa Fuentes on 12-22-2022 Albumin/Globulin [Mass ratio] 1.6 {ratio} [facility] Serum or plasma anion gap de terminationOrdered By: Inessa Fuentes on 12-22-2022 Anion gap [Moles/Vol] 8.0 mmol/L 6.0-15.0 [facility] Serum or plasma high density lipoprotein (HDL) cholesterol measurementOrdered By: Inessa Fuentes on 12-22-2022 Cholesterol in HDL [Mass/Vol] 62 mg/dL 23-92 [facility] Comment on above: HDL CHOL ATP-III CLA SSIFICATION Cardiovascular RiskHDL > or equal to 60 mg/dL LOWHDL < 40 mg/dL HIGH Serum or plasma total choles terol/high density lipoprotein (HDL) cholesterol mass ratOrdered By: Inessa Fuentes on 12-22-2022 Cholesterol.total/Chol esterol in HDL [Mass ratio] 4.0 {ratio} <5.0 [facility] Sodium [Moles/volume] in Ser um or PlasmaOrdered By: Inessa Fuentes on 12-22-2022 Sodium [Moles/Vol] 140 mmol/L 136-145 [facility] Thyrotropin [Units/volume] i n Serum or PlasmaOrdered By: Inessa Fuentes on 12-22-2022 TSH Qn 4.11 m[IU]/L 0.45-5.33 [facility] Triglyceride [Mass/volume] i n Serum or PlasmaOrdered By: Inessa Fuentes on 12-22-2022 Triglyceride [Mass/Vol] 181 mg/dL 0-149 [facility] Comment on above: TRIG ATP III CLASSIF ICATIONTRIG less than 150 mg/dL NormalTRIG 150-199 mg/dL Borderline highTRIG 200-500 mg/dL High TRIG greater than 500 mg/dL Very highStandard traceable to the Center for Disease Conrtrol and Prevention (CDC) test method. Urea nitrogen [Mass/volume] in Serum or PlasmaOrdered By: Inessa Fuentes on 12-22-2022 Urea nitrogen [Mass/Vol] 9 mg/dL 7-25 [facility] WBC Auto (Bld) [#/Vol]Ordere d By: Inessa Fuentes on 12-22-2022 WBC (Bld) [#/Vol] 4.7 10*3/uL 3.8-11.6 [facility] COVID + FLU Quick Testingon 04-07-2022 SARS-CoV-2 (COVID-19) RNA MIKE+probe Ql (Unsp spec) Negative [facility] Other COVID + FLU Quick Testing Negative [facility] Other RSVon 04-07-2022 RSV Ag IA Ql (Unsp spec) Negative [facility] Other Albumin [Mass/volume] in Ser um or PlasmaOrdered By: Inessa Fuentes on 01-06-2022 Albumin [Mass/Vol] 4.0 g/dL 3.2-5.5 [facility] Basophils Auto (Bld) [#/Vol] Ordered By: Inessa Fuentes on 01-06-2022 Basophils (Bld) [#/Vol] 0.0 10*3/uL 0.0-0.2 [facility] Basophils/100 WBC Auto (Bld) Ordered By: Inessa Fuentes on 01-06-2022 Basophils/100 WBC (Bld) 0.5 % . [facility] Cholesterol [Mass/volume] in Serum or PlasmaOrdered By: Inessa Fuentes on 01-06-2022 Cholesterol [Mass/Vol] 252 mg/dL 140-200 [facility] Comment on above: Chol less than 200 m g/dl low riskChol 201-239 mg/dl borderline riskChol 240 mg/dl and greater high risk Cholesterol in LDL Calc [Mas s/Vol]Ordered By: Inessa Fuentes on 01-06-2022 Cholesterol in LDL [Mass/Vol] 155 mg/dL 0-100 [facility] Comment on above: LDL ATP III CLASSIFI CATIONLDL less than 100 mg/dL OptimalLDL 100-129 mg/dL Near or above optimalLDL 130-159 mg/dL Borderline highLDL 160-189 mg/dL HighLDL greater than 189 mg/dL Very high Cholesterol in VLDL Calc [Ma ss/Vol]Ordered By: Inessa Fuentes on 01-06-2022 Cholesterol in VLDL [Mass/Vol] 24 mg/dL [facility] Creatinine and Glomerular fi ltration rate.predicted panel (S/P/Bld)Ordered By: Inessa Fuentes on 01-06-2022 Creatinine [Mass/Vol] 0.68 mg/dL 0.44-1.03 [facility] Eosinophils Auto (Bld) [#/Vo l]Ordered By: Inessa Fuentes on 01-06-2022 Eosinophils (Bld) [#/Vol] 0.1 10*3/uL 0.0-0.45 [facility] Eosinophils/100 WBC Auto (Bl d)Ordered By: Inessa Fuentes on 01-06-2022 Eosinophils/100 WBC (Bld) 2.7 % . [facility] Erythrocyte distribution wid th Auto (RBC) [Ratio]Ordered By: Inessa Fuentes on 01-06-2022 Erythrocyte distribution width (RBC) [Ratio] 12.8 % 11.9-15.3 [facility] Estimated glomerular filtrat ion rate (GFR) non- AmericanOrdered By: Inessa Fuentes on 01-06-2022 GFR/1.73 sq M.predicted among non-blacks MDRD (S/P/Bld) [Vol rate/Area] > 60 mL/Min [facility] Globulin Calc (S) [Mass/Vol] Ordered By: Inessa Fuentes on 01-06-2022 Globulin (S) [Mass/Vol] 3.4 g/dL [facility] Hematocrit Auto (Bld) [Volum e fraction]Ordered By: Inessa Fuentes on 01-06-2022 Hematocrit (Bld) [Volume fraction] 40.9 % 34.0-46.4 [facility] Hemoglobin [Mass/volume] in BloodOrdered By: Inessa Fuentes on 01-06-2022 Hemoglobin (Bld) [Mass/Vol] 13.8 g/dL 11.8-15.4 [facility] Laboratory - Hematology and Cell countsOrdered By: Inessa Fuentes on 01-06-2022 Nucleated RBC/100 WBC (Bld) [Ratio] 0.0 % 0-0.5 [facility] Leukocytes [#/volume] in Blo od by Automated countOrdered By: Inessa Fuentes on 01-06-2022 WBC (Bld) [#/Vol] 5.2 10*3/uL 4.5-11.0 [facility] Lymphocytes Auto (Bld) [#/Vo l]Ordered By: Inessa Fuentes on 01-06-2022 Lymphocytes (Bld) [#/Vol] 1.5 10*3/uL 1.00-4.8 [facility] Lymphocytes/100 WBC Auto (Bl d)Ordered By: Inessa Fuentes on 01-06-2022 Lymphocytes/100 WBC (Bld) 28.5 % . [facility] MCH Auto (RBC) [Entitic mass ]Ordered By: Inessa Fuentes on 01-06-2022 MCH (RBC) [Entitic mass] 32.7 pg 24.7-34.3 [facility] MCHC Auto (RBC) [Mass/Vol]Or dered By: Inessa Fuentes on 01-06-2022 MCHC (RBC) [Mass/Vol] 33.8 g/dL 32.0-35.0 [facility] MCV Auto (RBC) [Entitic vol] Ordered By: Inessa Fuentes on 01-06-2022 MCV (RBC) [Entitic vol] 96.9 fL 80-100 [facility] Monocytes Auto (Bld) [#/Vol] Ordered By: Inessa Fuentes on 01-06-2022 Monocytes (Bld) [#/Vol] 0.3 10*3/uL 0.0-0.8 [facility] Monocytes/100 WBC Auto (Bld) Ordered By: Inessa Fuentes on 01-06-2022 Monocytes/100 WBC (Bld) 6.3 % . [facility] Neutrophils Auto (Bld) [#/Vo l]Ordered By: Inessa Fuentes on 01-06-2022 Neutrophils (Bld) [#/Vol] 3.2 10*3/uL 1.8-7.7 [facility] Neutrophils/100 WBC Auto (Bl d)Ordered By: Inessa Fuentes on 01-06-2022 Neutrophils/100 WBC (Bld) 62.0 % . [facility] No Panel InformationOrdered By: Inessa Fuentes on 01-06-2022 Estimated GFR () > 60 mL/Min [facility] Comment on above: GFR estimated refere nce range: According to KDOQI guidelines, <60 ml/min/1.73m2 is sufficient to diagnose a patient with chronic kidney disease. Pharmacy Creatinine Clearance (Chem N/A [facility] Platelet mean volume Auto (B ld) [Entitic vol]Ordered By: Inessa Fuentes on 01-06-2022 Platelet mean volume (Bld) [Entitic vol] 7.6 fL 6.3-10.7 [facility] Platelets Auto (Bld) [#/Vol] Ordered By: Inessa uFentes on 01-06-2022 Platelets (Bld) [#/Vol] 334 10*3/uL 150-450 [facility] Protein [Mass/volume] in Ser um or PlasmaOrdered By: Inessa Fuentes on 01-06-2022 Protein [Mass/Vol] 7.4 g/dL 6.1-7.9 [facility] RBC Auto (Bld) [#/Vol]Ordere d By: Inessa Fuentes on 01-06-2022 RBC (Bld) [#/Vol] 4.22 10*6/uL 3.60-5.00 [facility] Serum or plasma alanine diaz otransferase measurement without P-5'-P (enzymatic activiOrdered By: Inessa Fuentes on 01-06-2022 ALT No additional P-5'-P [Catalytic activity/Vol] 28 U/L 10-60 [facility] Serum or plasma albumin/glob ulin mass ratioOrdered By: Inessa Fuentes on 01-06-2022 Albumin/Globulin [Mass ratio] 1.2 {ratio} [facility] Serum or plasma alkaline wendy sphatase measurement (enzymatic activity/volume)Ordered By: Inessa Fuentes on 01-06-2022 ALP [Catalytic activity/Vol] 92 U/L 32-92 [facility] Serum or plasma anion gap de terminationOrdered By: Inessa Fuentes on 01-06-2022 Anion gap [Moles/Vol] 11.7 mmol/L 6.0-15.0 [facility] Serum or plasma aspartate am inotransferase measurement (enzymatic activity/volume)Ordered By: Inessa Fuentse on 01-06-2022 AST [Catalytic activity/Vol] 28 U/L 10-42 [facility] Serum or plasma calcium keegan urement (mass/volume)Ordered By: Inessa Fuentes on 01-06-2022 Calcium [Mass/Vol] 9.1 mg/dL 8.2-10.2 [facility] Serum or plasma chloride angelo surement (moles/volume)Ordered By: Inessa Fuentes on 01-06-2022 Chloride [Moles/Vol] 100 mmol/L 95-114 [facility] Serum or plasma glucose keegan urement (mass/volume)Ordered By: Inessa Fuentes on 01-06-2022 Glucose [Mass/Vol] 93 mg/dL 70-100 [facility] Comment on above: ADA recommended refe rence rangeRandom Glucose Reference Range is dependent on time and content of last meal. Glucose of more than 200 mg/dL in a nonstressed, ambulatory subject supports the diagnosis of Diabetes Mellitus. Serum or plasma high density lipoprotein (HDL) cholesterol measurementOrdered By: Inessa Fuentes on 01-06-2022 Cholesterol in HDL [Mass/Vol] 72 mg/dL 35-85 [facility] Comment on above: HDL CHOL ATP-III CLA SSIFICATION Cardiovascular RiskHDL > or equal to 60 mg/dL LOWHDL < 40 mg/dL HIGH Serum or plasma potassium me asurement (moles/volume)Ordered By: Inessa Fuentes on 01-06-2022 Potassium [Moles/Vol] 3.9 mmol/L 3.5-5.1 [facility] Serum or plasma sodium measu rement (moles/volume)Ordered By: Inessa Fuentes on 01-06-2022 Sodium [Moles/Vol] 134 mmol/L 136-146 [facility] Serum or plasma total biliru bin measurement (mass/volume)Ordered By: Inessa Fuentes on 01-06-2022 Bilirubin [Mass/Vol] 0.6 mg/dL 0.3-1.2 [facility] Serum or plasma total carbon dioxide measurement (moles/volume)Ordered By: Inessa Fuentes on 01-06-2022 CO2 [Moles/Vol] 26.2 mmol/L 22.0-30.0 [facility] Serum or plasma total choles terol/high density lipoprotein (HDL) cholesterol mass ratOrdered By: Inessa Fuentes on 01-06-2022 Cholesterol.total/Chol esterol in HDL [Mass ratio] 3.5 {ratio} <5.0 [facility] Serum or plasma urea nitroge n measurement (mass/volume)Ordered By: Inessa Fuentes on 01-06-2022 Urea nitrogen [Mass/Vol] 6 mg/dL 9-23 [facility] TSH DL <= 0.005 mIU/L QnOrde red By: Inessa Fuentes on 01-06-2022 TSH Qn 1.93 m[IU]/L 0.45-5.33 [facility] Triglyceride [Mass/volume] i n Serum or PlasmaOrdered By: Inessa Fuentes on 01-06-2022 Triglyceride [Mass/Vol] 124 mg/dL 35-149 [facility] Comment on above: TRIG ATP III CLASSIF ICATIONTRIG less than 150 mg/dL NormalTRIG 150-199 mg/dL Borderline highTRIG 200-500 mg/dL High TRIG greater than 500 mg/dL Very highStandard traceable to the Center for Disease Conrtrol and Prevention (CDC) test method. Urine 10 SGon 01-06-2022 Albumin DL <= 20 mg/L (U) [Mass/Vol] Negative [facility] Other Albumin DL <= 20 mg/L (U) [Mass/Vol] trace [facility] Other pH (U) 7.5 [pH] [facility] Other Urine 10 SG Negative [facility] Other Urine 10 SG 1.020 [facility] Other Urine 10 SG 0.2 [facility] Other Urine culture routineOrdered By: Inessa Fuentes on 12-21-2021 Bacteria identified Cx Nom (U) 2 Days [facility] COVID Quick Testingon 2021 Result Negative [facility] Other COVID-19 Positive/NegativeOr dered By: Anderson Drake on 10-31-2021 SARS-CoV-2 (COVID-19) N gene MIKE+probe Ql (Resp) Positive Negative [facility] Comment on above: Positive results nanette l only be called to Providers for the following groups of patients: Pre-Surgical Testing, Emergency Room, and Inpatients. Results called at 1828 on 10/31/21 Testing for SARS-CoV-2 by RT-PCR This test was developed and its performance characteristics determined by [employer] and validated at the [facility]. This test has not been FDA cleared or approved. This test has been authorized by FDA under an Emergency Use Authorization (EUA). This test has been validated in accordance with the FDA's Guidance Document (Policy for Diagnostics Testing in Laboratories Certified to Perform High Complexity Testing under CLIA prior to Emergency Use Authorization for Coronavirus Disease-2019 during the Public Health Emergency) issued on May 25, 2019. This test is only authorized for the duration of time the declaration that circumstances exist justifying the authorization of the emergency use of in vitro diagnostic tests for detection of SARS-CoV-2 virus and/or diagnosis of COVID-19 infection under section 564(b)(1) of the Act, 21 U.S.C. 360bbb-3(b)(1), unless the authorization is terminated or revoked sooner. Positive results nanette l only be called to Providers for the following groups of patients: Pre-Surgical Testing, Emergency Room, and Inpatients.Results calledat 8 on 10/31/21 Testing for SARS-CoV-2 by RT-PCRThis test was developed and its performance characteristics determined by [employer] ([employer]) and validated at the [facility]. This test has not been FDA cleared or approved. This test has been authorized by FDA under an Emergency Use Authorization (EUA). This test has been validated in accordance with the FDA's Guidance Document (Policy for Diagnostics Testing in Laboratories Certified to Perform High Complexity Testing under CLIA prior to Emergency Use Authorization for Coronavirus Disease-2019 during the Public Health Emergency) issued on May 25, 2019. This test is only authorized for the duration of time the declaration that circumstances exist justifying the authorization of the emergency use of in vitro diagnostic tests for detection of SARS-CoV-2 virus and/or diagnosis of COVID-19 infection under section 564(b)(1) of the Act, 21 U.S.C. 360bbb-3(b)(1), unless the authorization is terminated or revoked sooner. C-Reactive Proteinon 021 CRP [Mass/Vol] 0.9 mg/L 0.0-1.0 [facility] Other Complete Blood Count Auto Di ffon 12-31-2020 Basophils (Bld) [#/Vol] 0.0 10*3/uL 0.0-0.2 [facility] Other Basophils/100 WBC (Bld) 0.9 % . [facility] Other Eosinophils (Bld) [#/Vol] 0.1 10*3/uL 0.0-0.45 [facility] Other Eosinophils/100 WBC (Bld) 2.9 % . [facility] Other Erythrocyte distribution width (RBC) [Ratio] 12.4 % 11.9-15.3 [facility] Other Hematocrit (Bld) [Volume fraction] 37.6 % 34.0-46.4 [facility] Other Hemoglobin (Bld) [Mass/Vol] 12.5 g/dL 11.8-15.4 [facility] Other Lymphocytes (Bld) [#/Vol] 1.5 10*3/uL 1.00-4.8 [facility] Other Lymphocytes/100 WBC (Bld) 33.8 % . [facility] Other MCH (RBC) [Entitic mass] 32.8 pg 24.7-34.3 [facility] Other MCH (RBC) [Entitic mass] 33.3 pg 32.0-35.0 [facility] Other MCV (RBC) [Entitic vol] 98.5 fL 80-100 [facility] Other Monocytes (Bld) [#/Vol] 0.3 10*3/uL 0.0-0.8 [facility] Other Monocytes/100 WBC (Bld) 7.2 % . [facility] Other Neutrophils (Bld) [#/Vol] 2.4 10*3/uL 1.8-7.7 [facility] Other Neutrophils/100 WBC (Bld) 55.2 % . [facility] Other Platelet mean volume (Bld) [Entitic vol] 7.5 fL 6.3-10.7 [facility] Other Platelets (Bld) [#/Vol] 291 10*3/uL 150-450 [facility] Other RBC (Bld) [#/Vol] 3.82 10*6/uL 3.60-5.00 [facility] Other WBC (Bld) [#/Vol] 4.4 10*3/uL 3.8-11.6 [facility] Other Complete Blood Count Auto Diff 4.4 4.5-11.0 [facility] Other Complete Blood Count Auto Diff 0.1 0-0.5 [facility] Other Comprehensive Metabolic Pane grant 12-31-2020 Albumin [Mass/Vol] 4.0 g/dL 3.2-5.5 [facility] Other Albumin/Globulin [Mass ratio] 1.3 {ratio} [facility] Other ALP [Catalytic activity/Vol] 76 U/L 32-92 [facility] Other ALT [Catalytic activity/Vol] 26 U/L 10-60 [facility] Other AST [Catalytic activity/Vol] 27 U/L 10-42 [facility] Other Bilirubin [Mass/Vol] 0.7 mg/dL 0.3-1.2 [facility] Other Calcium [Mass/Vol] 9.0 mg/dL 8.2-10.2 [facility] Other Chloride [Moles/Vol] 101 mmol/L 95-114 [facility] Other CO2 [Moles/Vol] 27.6 mmol/L 22.0-30.0 [facility] [employer] Other Creatinine [Mass/Vol] 0.67 mg/dL 0.44-1.03 [facility] Other Glucose [Mass/Vol] 90 mg/dL 70-100 [facility] Other Potassium [Moles/Vol] 3.5 mmol/L 3.5-5.1 [facility] Other Protein [Mass/Vol] 7.1 g/dL 6.1-7.9 [facility] Other Sodium [Moles/Vol] 138 mmol/L 136-146 [facility] Other Urea nitrogen [Mass/Vol] 7 mg/dL 9-23 [facility] Other Comprehensive Metabolic Panel > 60 [facility] Other Comprehensive Metabolic Panel 3.1 [facility] Other Erythrocyte Sedimentation Ra edward 12-31-2020 ESR (Bld) [Velocity] 23 mm/h 0-29 [facility] Other Vital Signs Date Time Vital Sign Value Performing Clinician Facility 03-28-2024 11:00-0500 Body temperature 98.2 [degF] Inessa Kuns DO Work Phone: [facility] 03-28-2024 11:00-0500 Diastolic blood pressure 95 mm[Hg] Inessa Kuns DO Work Phone: [facility] 03-28-2024 11:00-0500 Heart rate 89 /min Inessa Kuns DO Work Phone: [facility] 03-28-2024 11:00-0500 Respiratory rate 18 /min Inessa Kuns DO Work Phone: [facility] 03-28-2024 11:00-0500 SaO2% (BldA) [Mass fraction] 100 % Inessa Kuns DO Work Phone: [facility] 03-28-2024 11:00-0500 Systolic blood pressure 131 mm[Hg] Inessa Kuns DO Work Phone: [facility] 03-23-2024 13:49-0500 Body height 163.8 cm Alanna Itzkowitz DO Work Phone: [facility] 03-23-2024 13:49-0500 Body mass index (BMI) [Ratio] 32.11 kg/m2 Alanna Itzkowitz DO Work Phone: [facility] 03-23-2024 13:49-0500 Body weight 86.18 kg Alanna Itzkowitz DO Work Phone: [facility] 03-23-2024 13:49-0500 Diastolic blood pressure 84 mm[Hg] Alanna Itzkowitz DO Work Phone: [facility] 03-23-2024 13:49-0500 Systolic blood pressure 122 mm[Hg] Alanna Itzkowitz DO Work Phone: [facility] 01-31-2024 15:42-0500 Body height 157.5 cm Fausto Leecek DO Work Phone: [facility] 01-31-2024 15:42-0500 Body mass index (BMI) [Ratio] 34.39 kg/m2 Fausto Leecek DO Work Phone: [facility] 01-31-2024 15:42-0500 Body weight 85.28 kg Fausto Leecek DO Work Phone: [facility] 01-06-2024 14:09-0500 Body mass index (BMI) [Ratio] 34.39 kg/m2 Heather Visci DO Work Phone: [facility] 01-06-2024 14:09-0500 Body weight 85.28 kg Heather Visci DO Work Phone: [facility] 01-06-2024 14:09-0500 Diastolic blood pressure 80 mm[Hg] Heather Visci DO Work Phone: [facility] 01-06-2024 14:09-0500 Systolic blood pressure 120 mm[Hg] Heather Visci DO Work Phone: [facility] 01-06-2024 07:27-0500 Body height 165.1 cm Inessa Kuns DO Work Phone: [facility] 01-06-2024 07:27-0500 Body mass index (BMI) [Ratio] 31.2 kg/m2 Inessa Kuns DO Work Phone: [facility] 01-06-2024 07:27-0500 Body weight 85.27 kg Inessa Kuns DO Work Phone: [facility] 01-06-2024 07:27-0500 Diastolic blood pressure 78 mm[Hg] Inessa Kuns DO Work Phone: [facility] 01-06-2024 07:27-0500 Heart rate 83 /min Inessa Kuns DO Work Phone: [facility] 01-06-2024 07:27-0500 Respiratory rate 16 /min Inessa Kuns DO Work Phone: [facility] 01-06-2024 07:27-0500 SaO2% (BldA) [Mass fraction] 97 % Inessa Kuns DO Work Phone: [facility] 01-06-2024 07:27-0500 Systolic blood pressure 128 mm[Hg] Inessa Kuns DO Work Phone: [facility] 11-16-2023 11:23-0400 Blood Pressure Location EDWIN WEAVER [facility] 11-16-2023 11:23-0400 Body temperature 98.24 [degF[facility] 11-16-2023 11:23-0400 Diastolic blood pressure 86 mm[Hg] LAGRANGE WEAVER [facility] 11-16-2023 11:23-0400 Heart rate 79 /min LAGRANGE [employer]AVER [facility] 11-16-2023 11:23-0400 SaO2% (BldA) [Mass fraction] 96 % [facility] 11-16-2023 11:23-0400 Systolic blood pressure 132 mm[Hg] LAGRANGE WEAVER [facility] 11-12-2023 10:56-0400 Body height 165.1 cm [facility] 11-12-2023 10:56-0400 Body mass index (BMI) [Ratio] 30.7 kg/m2 [facility] 11-12-2023 10:56-0400 Body weight 83.91 kg [facility] 11-12-2023 10:56-0400 Heart rate 89 /min [facility] 08-10-2023 08:53-0400 Body height 165.1 cm DO Inessa Kuns Work Phone: [facility] 08-10-2023 08:53-0400 Body mass index (BMI) [Ratio] 31.2 kg/m2 DO Inessa Kuns Work Phone: [facility] 08-10-2023 08:53-0400 Body weight 85.27 kg DO Inessa Kuns Work Phone: [facility] 08-10-2023 08:53-0400 Diastolic blood pressure 70 mm[Hg] DO Inessa Kuns Work Phone: [facility] 08-10-2023 08:53-0400 Heart rate 80 /min DO Inessa Kuns Work Phone: [facility] 08-10-2023 08:53-0400 Respiratory rate 16 /min DO Inessa Kuns Work Phone: [facility] 08-10-2023 08:53-0400 SaO2% (BldA) [Mass fraction] 98 % DO Inessa Kuns Work Phone: [facility] 08-10-2023 08:53-0400 Systolic blood pressure 100 mm[Hg] DO Inessa Kuns Work Phone: [facility] 03-29-2023 09:00-0500 Body height 165.1 cm InessaShayne [employer] Other [facility] Other 03-29-2023 09:00-0500 Body mass index (BMI) [Ratio] 30.62 kg/m2 Inessa Kuns Other [facility] Other 03-29-2023 09:00-0500 Body weight 83.46 kg Inessa Kuns Other [facility] Other 03-29-2023 09:00-0500 Diastolic blood pressure 70 mm[Hg] Inessa Kuns Other [facility] Other 03-29-2023 09:00-0500 Respiratory rate 16 /min Inessa Kuns Other [facility] Other 03-29-2023 09:00-0500 SaO2% (BldA) [Mass fraction] 97 % Inessa Kuns Other [facility] Other 03-29-2023 09:00-0500 Systolic blood pressure 112 mm[Hg] Inessa Kuns Other [facility] Other 12-28-2022 08:45-0500 Body height 165.1 cm Inessa Kuns Other [facility] Other 12-28-2022 08:45-0500 Body mass index (BMI) [Ratio] 31.28 kg/m2 Inessa Kuns Other [facility] Other 12-28-2022 08:45-0500 Body weight 85.28 kg Inessa Kuns Other [facility] Other 12-28-2022 08:45-0500 Diastolic blood pressure 74 mm[Hg] Inessa Kuns Other [facility] Other 12-28-2022 08:45-0500 Respiratory rate 18 /min Inessa Kuns Other [facility] Other 12-28-2022 08:45-0500 SaO2% (BldA) [Mass fraction] 96 % Inessa Kuns Other [facility] Other 12-28-2022 08:45-0500 Systolic blood pressure 114 mm[Hg] Inessa Kuns Other [facility] Other 02-27-2022 13:30-0500 Body height 165.1 cm Inessa Kuns Other [facility] Other 02-27-2022 13:30-0500 Body mass index (BMI) [Ratio] 32.95 kg/m2 Inessa Kuns Other [facility] Other 02-27-2022 13:30-0500 Body weight 89.81 kg Inessa Kuns Other [facility] Other 02-27-2022 13:30-0500 Diastolic blood pressure 78 mm[Hg] Inessa Kuns Other [facility] Other 02-27-2022 13:30-0500 Respiratory rate 16 /min Inessa Kuns Other [facility] Other 02-27-2022 13:30-0500 SaO2% (BldA) [Mass fraction] 97 % Inessa Kuns Other [facility] Other 02-27-2022 13:30-0500 Systolic blood pressure 122 mm[Hg] Inessa Kuns Other [facility] Other 01-06-2022 09:30-0500 Body height 165.1 cm Inessa Kuns Other [facility] Other 01-06-2022 09:30-0500 Body mass index (BMI) [Ratio] 32.28 kg/m2 Inessa Kuns Other [facility] Other 01-06-2022 09:30-0500 Body weight 88 kg Inessa Kuns Other [facility] Other 01-06-2022 09:30-0500 Diastolic blood pressure 76 mm[Hg] Inessa Kuns Other [facility] Other 01-06-2022 09:30-0500 Respiratory rate 16 /min Inessa Kuns Other [facility] Other 01-06-2022 09:30-0500 SaO2% (BldA) [Mass fraction] 99 % Inessa Kuns Other [facility] Other 01-06-2022 09:30-0500 Systolic blood pressure 116 mm[Hg] Inessa Kuns Other [facility] Other 11-25-2021 14:01-0400 Diastolic blood pressure 72 mm[Hg] DO Inessa Kuns Work Phone: [facility] 11-25-2021 14:01-0400 Heart rate 76 /min DO Inessa Kuns Work Phone: [facility] 11-25-2021 14:01-0400 Respiratory rate 16 /min DO Inessa Kuns Work Phone: [facility] 11-25-2021 14:01-0400 SaO2% (BldA) [Mass fraction] 96 % DO Inessa Kuns Work Phone: [facility] 11-25-2021 14:01-0400 Systolic blood pressure 110 mm[Hg] DO Inessa Kuns Work Phone: [facility] 11-25-2021 12:49-0400 Body height 165.1 cm DO Inessa Kuns Work Phone: [facility] 11-25-2021 12:49-0400 Body temperature 98.3 [degF] DO Inessa Kuns Work Phone: [facility] 11-25-2021 12:49-0400 Body weight 85.72 kg DO Inessa Kuns Work Phone: [facility] 11-14-2021 15:45-0400 Body height 165.1 cm Inessa Franciscos Other [facility] Other 11-14-2021 15:45-0400 Body mass index (BMI) [Ratio] 31.61 kg/m2 Inessa Franciscos Other [facility] Other 11-14-2021 15:45-0400 Body weight 86.18 kg Inessa Franciscos Other [facility] Other 11-14-2021 15:45-0400 Diastolic blood pressure 70 mm[Hg] Inessa Franciscos Other [facility] Other 11-14-2021 15:45-0400 Respiratory rate 16 /min Inessa Franciscos Other [facility] Other 11-14-2021 15:45-0400 SaO2% (BldA) [Mass fraction] 99 % Inessa Franciscos Other [facility] Other 11-14-2021 15:45-0400 Systolic blood pressure 112 mm[Hg] Inessa Kuns Other [facility] Other 10-14-2021 14:15-0400 Body height 165.1 cm Anderson Drake Other [facility] Other 10-14-2021 14:15-0400 Body mass index (BMI) [Ratio] 31.95 kg/m2 Anderson Drake Other [facility] Other 10-14-2021 14:15-0400 Body weight 87.09 kg Anderson Drake Other [facility] Other 10-14-2021 14:15-0400 Diastolic blood pressure 88 mm[Hg] Anderson Drake Other [facility] Other 10-14-2021 14:15-0400 Systolic blood pressure 135 mm[Hg] Anderson Drake Other [facility] Other 12-31-2020 14:15-0500 Body height 165.1 cm Jose Sinha Other [facility] Other 12-31-2020 14:15-0500 Body mass index (BMI) [Ratio] 32.61 kg/m2 Jose Sinha Other [facility] Other 12-31-2020 14:15-0500 Body weight 88.91 kg Jose Sinha Other [facility] Other 12-31-2020 14:15-0500 Diastolic blood pressure 85 mm[Hg] Jose Sinha Other [facility] Other 12-31-2020 14:15-0500 Systolic blood pressure 132 mm[Hg] Jose Sinha Other [facility] Other Encounters Encounter Date Encounter Type Care Provider Facility Start: 03-28-2024 End: 03-28-2024 Admission to same day surgery center Inessa Franciscos DO Work Phone: [facility] Work Phone: Start: 03-28-2024 End: 03-28-2024 ambulatory Inessa Kuns DO Work Phone: [facility] Work Phone: Start: 03-23-2024 End: 03-23-2024 Office outpatient new 60 minutes Alanna Marko Puma DO Work Phone: [facility] Comment on above: Microcalcification o f left breast on mammogram (Primary Dx) Start: 03-23-2024 End: 03-23-2024 ambulatory ALANNA Zhu DELONMONAPARRISH Not Available Start: 03-14-2024 End: 03-14-2024 Patient encounter procedure Inessa Franciscos DO Work Phone: [facility] Work Phone: Start: 03-14-2024 End: 03-14-2024 ambulatory Inessa Kuns DO Work Phone: [facility] Work Phone: Start: 02-03-2024 End: 02-03-2024 Patient encounter procedure Inessa Kuns DO Work Phone: [facility] [place] Work Phone: Start: 02-03-2024 End: 02-03-2024 ambulatory Anne Ortiz Facility:[facility] Start: 01-31-2024 End: 01-31-2024 Office outpatient visit 25 minutes Fausto Veliz DO Work Phone: [facility] [place] Comment on above: Thyroid nodule (CMS/ HCC) (Primary Dx) Start: 01-31-2024 End: 01-31-2024 ambulatory FAUSTO VELIZ Not Available Start: 01-27-2024 End: 01-27-2024 Patient encounter procedure Inessa Kuns DO Work Phone: [facility] Work Phone: Start: 01-27-2024 End: 01-27-2024 ambulatory Inessa Fuentes Facility:[facility] Start: 01-06-2024 End: 01-06-2024 Patient encounter status Heather Norwood DO Work Phone: [facility] Start: 01-06-2024 End: 01-06-2024 Periodic preventive med est patient 40-64yrs Heather Norwood DO Work Phone: [facility] Comment on above: Encounter for gyneco logical examination with abnormal finding (Primary Dx); Encounter for screening mammogram for malignant neoplasm of breast; Pelvic pain in female Start: 01-06-2024 End: 01-06-2024 ambulatory HEATHER NORWOOD Not Available Start: 01-06-2024 Non-patient / Non-visit [facility] Cardiology Work Phone: Start: 01-06-2024 End: 01-06-2024 ambulatory Inessa Schraders DO Work Phone: [facility] Work Phone: Start: 01-06-2024 End: 01-06-2024 Encounter for general adult medical examination without abnormal findings Inessa Kuns DO Work Phone: [facility] Start: 01-06-2024 End: 01-06-2024 Patient encounter procedure Inessa Kuns DO Work Phone: [facility] [place] Work Phone: Start: 01-06-2024 Patient encounter status Inessa Franciscos DO Work Phone: [facility] Start: 11-16-2023 End: 11-16-2023 ambulatory EDWIN WEAVER Facility: [place] Start: 11-16-2023 End: 11-16-2023 Patient encounter procedure EDWIN WEAVER [facility] Start: 11-12-2023 End: 11-12-2023 ambulatory [facility] Work Phone: Start: 11-12-2023 End: 11-12-2023 Patient encounter procedure [facility] Gastroenterology Work Phone: Start: 08-10-2023 End: 08-10-2023 ambulatory DO Inessa Franciscorubin Work Phone: [facility] Work Phone: Start: 08-10-2023 End: 08-10-2023 Patient encounter procedure DO Inessa Franciscorubin Work Phone: [facility] [place] Work Phone: Start: 07-26-2023 End: 07-26-2023 ambulatory FAUSTO W KEYONAK Not Available Start: 07-05-2023 End: 07-05-2023 Departed Referred DO Inessa Franciscorubin Work Phone: [facility] [place] Work Phone: Start: 07-05-2023 End: 07-05-2023 ambulatory FAUSTO W MURCEK Not Available Start: 06-14-2023 End: 06-14-2023 ambulatory FAUSTO W MURCEK Not Available Start: 06-09-2023 Patient encounter status Lauryn rd Visci DO Work Phone: [facility] Start: 05-03-2023 Telephone encounter Jose cueto DO Work Phone: Gastroenterology Comment on above: Results Start: 04-30-2023 ambulatory INESSA SCHARDERRubin Facili ty:[facility] Start: 04-30-2023 Telephone encounter Jose cueto DO Work Phone: Gastroenterology Comment on above: Orders (HIDA w/EF) Start: 04-30-2023 End: 04-30-2023 Subsequent hospital visit by physician [facility] Work Phone: [facility] Radiology Molecular Comment on above: Dyspepsia [R10.13] Start: 04-29-[address] radha RT(R) [facility] Radiology Molecular Comment on above: Radiology NM (Appoin tment reminder.) Start: 04-16-2023 ambulatory ANNE Garcia LY Facility :[facility] Start: 04-16-2023 End: 04-16-2023 Subsequent hospital visit by physician [facility] Work Phone: [facility] Radiology Molecular Comment on above: Dyspepsia [R10.13] Start: 04-15-2023 Telephone encounter Carolyn Delmis garcia RT(R) [facility] Radiology Molecular Comment on above: Radiology NM (Appoin tment reminder.) Start: 03-29-2023 End: 03-29-2023 ambulatory Inessa Fuentes Other [facility] Other Start: 03-29-2023 Office outpatient vi sit 25 minutes Inessa Fuentes [facility] Start: 03-25-2023 Telephone encounter Anne Diana DO Work Phone: Gastroenterology Comment on above: Results Start: 03-24-2023 End: 03-24-2023 ambulatory INESSA FUENTES Facility:[facility] Start: 01-04-2023 End: 01-04-2023 ambulatory Inessa Fuentes Other [facility] Other Start: 01-04-2023 Telephone encounter Inessa Fuentes [facility] Clinical Therapist Start: 12-28-2022 End: 12-28-2022 ambulatory Inessa Fuentes Other [facility] Other Start: 12-28-2022 Encounter for genera l adult medical examination without abnormal findings Inessa Fuentes [facility] Start: 12-28-2022 Office outpatient vi sit 25 minutes Inessa Fuentes [facility] Start: 12-22-2022 End: 12-22-2022 ambulatory DO Inessa Kuns Work Phone: [facility] Work Phone: Start: 12-22-2022 End: 12-22-2022 Patient encounter procedure DO Inessa Kuns Work Phone: [facility] [place] Work Phone: Start: 09-09-2022 End: 09-09-2022 ambulatory Anderson Drake Other [facility] Other Start: 09-09-2022 Telephone encounter Anderson Cummings [facility] Start: 08-31-2022 End: 08-31-2022 ambulatory Anderson Drake Other [facility] Other Start: 08-31-2022 Telephone encounter Anderson Cummings [facility] Start: 08-19-2022 End: 08-19-2022 ambulatory Inessa Kuns Other [facility] Other Start: 08-19-2022 Telephone encounter Inessa Franciscos [facility] [place] Start: 04-07-2022 End: 04-07-2022 ambulatory Inessa Kuns Other [facility] Other Start: 04-07-2022 Nursing evaluation o f patient and report Inessa Kuns [facility] [place] Start: 04-07-2022 Telephone encounter Inessa Kuns [facility] [place] Start: 03-30-2022 End: 03-30-2022 ambulatory Inessa Kuns Other [facility] Other Start: 03-30-2022 Telephone encounter Inessa Kuns [facility] Clinical The[facility] Start: 02-27-2022 End: 02-27-2022 ambulatory Inessa Kuns Other [facility] Other Start: 02-27-2022 Office outpatient vi sit 25 minutes Inessa Fuentes [facility] Start: 02-17-2022 End: 02-17-2022 ambulatory Anderson Drake Other [facility] Other Start: 02-17-2022 Telephone encounter Anderson Cummings [facility] Start: 01-20-2022 End: 01-20-2022 ambulatory Anderson Drake Other [facility] Other Start: 01-20-2022 Telephone encounter Anderson Cummings [facility] Start: 01-06-2022 Encounter for genera l adult medical examination without abnormal findings Inessa Fuentes [facility] Start: 01-06-2022 Patient encounter status Inessa Fuentes Other [facility] Other Start: 01-06-2022 Periodic preventive med est patient 40-64yrs nIessa Fuentes [facility] Start: 01-06-2022 End: 01-06-2022 ambulatory DO Inessa Kuns Work Phone: [facility] Work Phone: Start: 01-06-2022 End: 01-06-2022 Patient encounter procedure DO Inessa Kuns Work Phone: [facility] [place] Start: 12-19-2021 End: 12-19-2021 Departed Referred DO Inessa Kuns Work Phone: [facility] [place] Start: 11-25-2021 End: 11-25-2021 Admission to same day surgery center DO Inessa Kuns Work Phone: [facility] Start: 11-25-2021 End: 11-25-2021 ambulatory DO Inessa Kuns Work Phone: [facility] Work Phone: Start: 11-14-2021 End: 11-14-2021 ambulatory Inessa Fuentes Other [facility] Other Start: 11-14-2021 Office outpatient vi sit 25 minutes Inessa Franciscos [facility] Start: 11-04-2021 End: 11-04-2021 ambulatory Inessa Franciscos Other [facility] Other Start: 11-04-2021 Telephone encounter Inessa Franciscos [facility] Start: 11-03-2021 End: 11-03-2021 ambulatory Anderson Drake Other [facility] Other Start: 11-03-2021 Telephone encounter Anderson Drake [facility] Gastroenterology Start: 10-31-2021 End: 10-31-2021 Patient encounter procedure DO Inessa Fuentes Work Phone: [facility] Start: 10-14-2021 End: 10-14-2021 ambulatory Anderson Drake Other [facility] Other Start: 10-14-2021 Patient encounter procedure Anderson Drake [facility] Gastroenterology Start: 04-25-2021 End: 04-25-2021 ambulatory Inessa Gina Other [facility] Other Start: 04-25-2021 Telephone encounter Inessa Franciscos [facility] Start: 03-11-2021 End: 03-12-2021 ambulatory GUERLINE ALEXANDER Facility:[facility] Start: 12-31-2020 End: 12-31-2020 ambulatory Jose Sinha Other [facility] Other Start: 12-31-2020 Office outpatient vi sit 25 minutes Jose Sinha [facility] Gastroenterology Start: 08-13-2020 End: 08-14-2020 ambulatory GUERLINE ALEXANDER Facility:[facility] Start: 07-16-2020 End: 07-17-2020 ambulatory GUERLINE ALEXANDER Facility:[facility] Procedures Date Procedure Procedure Detail Performing Clinician Start: 03-28-2024 Specimen mammography Inessa Fuentes DO Work Phone: Start: 03-28-2024 Stereotactic mammography Inessa Fuentes DO Work Phone: Start: 03-14-2024 End: 03-14-2024 Mammography of left breast Inessa Fuentes DO Work Phone: Start: 02-03-2024 Computed tomography of abdomen and pelvis with contrast Inessa Fuentes DO Work Phone: Start: 01-27-2024 End: 01-27-2024 Mammography Fausto Veliz DO Work Phone: Start: 04-30-2023 Hepatobil syst imag inc gb w/pharma intervenj Jose Sinha DO Work Phone: Start: 04-16-2023 Gastric emptying imaging study Anne Diana DO Work Phone: Start: 11-25-2021 Esophagogastroduodenoscopy DO Inessa Fuentes Work Phone: Electrocardiogram Inessa Fuentes Other Urine culture DO Inessa Fuentes Work Phone: Plan of Treatment Date Care Activity Detail Author Start: 03-14-2025 Screening for malign ant neoplasm of breast Mammogram [facility] Start: 02-05-2025 End: 02-05-2025 Patient encounter procedure 02/05/2025 4:00 PM EST Office Visit [facility] [place] [address] [place] [id number] Fausto Veliz, DO [address] [place] [address] [facility] Start: 01-26-2025 Screening for malign ant neoplasm of breast Mammogram [facility] Start: 01-11-2025 End: 01-11-2025 Patient encounter procedure 01/11/2025 2:45 PM EST Office Visit [facility] [address] [place] [id number] Heather Norwood, DO [address] [place] [address] [facility] Start: 01-31-2024 End: 01-31-2024 Patient encounter procedure 01/31/2024 3:45 PM EST Office Visit [facility] [place] [address] [place] [id number] Fausto Veliz, DO [address] [place] [address] [facility] [place] Start: 01-06-2024 End: 03-07-2025 DBT Breast - bilateral screening Bilateral screening mammogram with tomosynthesis Imaging Routine Encounter for screening mammogram for malignant neoplasm of breast Expected: 01/06/2024, Expires: 03/07/2025 [facility] Work Phone: Comment on above: Expected: 01/06/2024 , Expires: 03/07/2025 Start: 01-06-2024 Urine culture [facility] Start: 01-06-2024 End: 01-06-2024 [facility] Start: 10-24-2023 Influenza vaccination Influenza Vacc ine (#1) [facility] Start: 02-22-2023 Depression Assessment Depression Ass essment [facility] Start: 10-23-2022 Covid-19 Vaccine ( season) Covid-19 Vaccine ( season) [facility] Start: 10-23-2022 Influenza vaccination Influenza Vacc ine (#1) [facility] Start: 11-25-2021 [facility] Start: 2018 Shingrix Vaccine (1 of 2) Shingrix Vaccine (1 of 2) [facility] Start: 2013 Diabetes Screening Diabetes Screenin g [facility] Start: 2013 Lipid panel Lipid Screening [facility] Start: 2013 Screening for malign ant neoplasm of colon [facility] Start: 2008 Screening for malign ant neoplasm of breast [facility] Start: 1998 Screening for malign ant neoplasm of cervix [facility] Start: 1989 Screening for malign ant neoplasm of cervix [facility] Start: 1987 Hepatitis B Vaccine (1 of 3 - 19+ 3-dose series) Hepatitis B Vaccine (1 of 3 - 19+ 3-dose series) [facility] Start: 1987 Urine microalbumin profile DTaP,Tdap,Td Vaccine (1 - Tdap) [facility] Start: 1986 Hepatitis C screening Hepatitis C Sc reening [facility] Start: 1986 HIV screening HIV Screening [facility] Start: 1968 Hepatitis B Vaccine (1 of 3 - 3-dose series) Hepatitis B Vaccine (1 of 3 - 3-dose series) [facility] Start: 1968 Screening for malign ant [facility]oplasm [facility] 2000 panel - Serum or Plasma [facility] CT Abdomen and Pelvi s W contrast IV [facility] Elastase.pancreatic [Mass/mass] in Stool [facility] Immunizations Immunization Date Immunization Notes Care Provider Cheko lin 08-13-2020 COVID-19 Vaccine Pfi zer - Documentation Purposes Only Inessa Fuentes Other [facility] 08-12-2020 COVID-19 mRNA, Comir jaclyn (Pfizer) DO Inessa Fuentes Work Phone: [facility] 07-16-2020 COVID-19 mRNA, Comir jaclyn (Pfizer) DO Inessa Fuentes Work Phone: [facility] Payers Date Payer Category Payer Private Health Insurance [employer] [id number] 2021 Unknown [id number] 2021 [facility] [id number] 2021 Unknown [id number]. [id number] 2021 Blue Cross Blue Shield [id number] 1968 Unknown [id number] 2.16840.1.884370.3.579.2. 593 1968 Unknown [id number] 2.16840.1.627370.3.579.2. 593 1968 Unknown [id number] 2.16840.1.424171.3.579.2. 727 1968 Unknown [id number] 2.16840.1.383870.3.579.2. 1259 1968 Unknown [id number] 2.16840.1.731733.3.579.2. 1259 1968 Unknown [id number] 2.16840.1.943831.3.579.2. 1259 1968 Unknown [id number] 2.16.840.1.531255.3.579.2. 1259 1968 Unknown [id number] 2.16.840.1.181821.3.579.2. 1259 1968 Unknown [id number] 2.16.840.1.696337.3.579.2. 1259 1959 Self-pay 1959 Unknown [id number] Unknown [id number] 2.16.840.1.912871.3.579.2. 593 Unknown [id number] 2.16.840.1.981558.3.579.2. 531 Unknown [id number] 2.16.840.1.206970.3.579.2. 531 Unknown [id number] 2.16.840.1.047853.3.579.2. 531 Unknown [id number] 2.16.840.1.399328.3.579.2. 531 Unknown [id number] 2.16.840.1.476328.3.579.2. 531 Unknown [id number] [id number]. 531 Social History Date Type Detail Facility Unknown if ever smoked [facility] Start: 03-24-2023 End: 03-23-2024 Sex Assigned At [facility] Start: 11-29-2020 End: 11-12-2023 Tobacco smoking status [facility] Ex-smoker (finding) [facility] Start: 1970 Sex Assigned At Female [facility] Start: 11-25-2021 End: 11-25-2021 Tobacco smoking status [facility] Current some day smoker [facility] End: 02-22-2002 History of tobacco use Current smoker [facility] End: 02-22-2002 History of tobacco use Cigarette Smoker [facility] Start: 03-24-2023 End: 01-06-2024 Tobacco use and exposure Smokeless tobacco non-user [facility] Start: 03-24-2023 End: 03-23-2024 History of Social function [facility] National Score (1-100), lower number is lower risk 61 [facility] Start: 1970 Sex Assigned At Not on file [facility] Start: 01-06-2024 End: 04-03-2024 Sex Female (finding) [facility] Start: 01-06-2024 End: 03-23-2024 Alcoholic beverage intake Current drinker of alcohol (finding) [facility] NEGATED: Highlighted rowStart: NINF History of tobacco use Passive smoker [facility] Goals Date Patient Goal Desired Activity /State Functional Status Date Assessment Result Facility 11-16-2023 Functional Status N/A [facility] Clinical Notes 12-31-2020 to 03-23-2024 Alanna Don, DO - 03/23/2024 2:00 PM Cata Veliz, DO - 01/31/2024 3:45 PM Miguel Angel Gurrola [employer] - 01/06/2024 1:30 PM EST Note Date & Type Note Facility 03-23-2024 History of Presen t illness Narrative Images from the original note were not included. Zari Velazquez 1970 Zari Velazquez is a 53 y.o. female presents with chief complaint of Abnormal Left mamm HPI: HPI Zari went for routine mammogram in January 2024 and was called back for additional spot images. She has no breast issues, no masses, skin changes or nipple discharge. She denies any breast trauma. SUBJECTIVE: MEDICATIONS: ALLERGIES Current Outpatient Medications Medication Instructions albuterol HFA 90 mcg/act inhaler 2 puffs, 4 times daily ALPRAZolam (XANAX) 0.25 mg, Nightly PRN ofloxacin (Ocuflox) 0.3 % ophthalmic solution 2 drops, 4 times daily omeprazole (PRILOSEC) 40 mg, Daily before breakfast ondansetron ODT (ZOFRAN-ODT) 4 mg, Every 8 hours PRN No Known Allergies PAST MEDICAL HISTORY: SOCIAL HISTORY SURGICAL HISTORY: Past Medical History: Diagnosis Date Hyperglycemia 01/31/2024 RUQ abdominal pain 01/31/2024 Social History Tobacco Use Smoking status: Former Current packs/day: 0.00 Types: Cigarettes Quit date: 2002 Years since quittin.0 Smokeless tobacco: Never Vaping Use Vaping status: Never Used Substance Use Topics Alcohol use: Yes Drug use: Never Past Surgical History: Procedure Laterality Date SECTION, LOW TRANSVERSE 2006 HYSTERECTOMY 2014 TLH/RSO/LS, TVT-O, cystoscopy FAMILY HISTORY No family history on file. REVIEW OF SYMPTOMS: Review of Systems Constitutional: Negative for diaphoresis and unexpected weight change. HENT: Negative for hearing loss, tinnitus and voice change. Respiratory: Negative for shortness of breath. Cardiovascular: Negative for chest pain and palpitations. Gastrointestinal: Positive for diarrhea (See's GI for it). Musculoskeletal: Negative for arthralgias. Neurological: Negative for dizziness, seizures and headaches. All other systems reviewed and are negative. Hematological: Negative for adenopathy. Does not bruise/bleed easily. OBJECTIVE: Visit Vitals Smoking Status Former Physical Exam Exam conducted with a electrical maintenance engineer present. HENT: Head: Normocephalic. Cardiovascular: Rate and Rhythm: Normal rate and regular rhythm. Pulmonary: Effort: Pulmonary effort is normal. Breath sounds: Normal breath sounds. Chest: Comments: Bilateral supraclavicular, infraclavicular, bicipital and axillary lymph nodes were found to be normal. Each breast was examined in the sitting and supine position, there was no evidence of masses, dimpling or discharge in either breast Abdominal: General: Abdomen is flat. Bowel sounds are normal. Palpations: Abdomen is soft. Skin: General: Skin is warm and dry. Neurological: Mental Status: She is alert. ASSESSMENT AND PLAN: Assessment/Plan Problem List Items Addressed This Visit Microcalcification of left breast on mammogram - Primary Zari had bilateral mamm's on 01/27/24 that showed an area of microcalc's, she had spot films done 03/14/24 that confirmed the findings. I suggest we get a stereotactic biopsy of the area for diagnosis. She is in agreement and I will see her to review the results of the biopsy documented in this encounter [facility] 12-09-2024 History of Presen t illness Narrative Subjective Patient ID: HPI Patient presents today to reinspect a right thyroid nodule, 6 months ago it was biopsied, [place] II. Six months ago was 2.8 cm in greatest dimension. Review of Systems ROS The specialty specific review of systems is noncontributory except for that recorded in the intake questionnaire and /or described in the history of present illness. Objective ENT Physical Exam Physical Exam Constitutional: Appearance: Normal appearance. HENT: Head: Atraumatic. Ears: External ear shows no abnormality Bilateral ear canals are clear Tympanic membranes intact, no evidence of middle ear fluid or other pathology. Nose: External nose appears to be normal Nares patent. Septal deviation to the No evidence of polyp, mass or pus bilaterally. Oral Cavity: No evidence of trismus Lips appear normal Dental good Tongue of normal size and configuration, floor of mouth mucosa clear. Buccal mucosa shows no evidence of ulceration, mass or other abnormality Hard palate soft palate mucosa intact with no evidence of mass, ulceration or other abnormality Uvula of normal size and configuration Oropharynx: Tonsils Posterior pharyngeal wall normal Neck: No evidence of palpable abnormality Thyroid without evidence of thyromegaly or mass. No cervical lymphadenopathy present. Cardiovascular: Rate and Rhythm: Normal rate and regular rhythm. . Skin: General: Skin is warm and dry. Neurological: General: No focal deficit present. Mental Status: alert and oriented to person, place, and time. THYROID ULTRASOUND EXAMINATION Indication: Thyroid nodule After informed consent was obtained the patient was placed supine on the examining table. Patient was asked to extend the neck. Topical ultrasound jelly was used. The right lobe of the thyroid gland measures __ 4.9 cm in greatest dimension. Occupying the inferior aspect of the lobe was a hypoechoic nodule with no internal vascularity microcalcification now measuring 2 . 6 8 cm in greatest dimension. No internal vascularity microcalcification The isthmus is unremarkable. The left lobe of the thyroid gland measures __ 4.2 cm greatest dimension. No identifiable nodular mass There is no adenopathy in the central compartment. There is no appreciable adenopathy in either lateral neck. Assessment/Plan Zari was seen today for thyroid nodule. Diagnoses and all orders for this visit: Thyroid nodule (CMS/HCC) (Primary) Comments: I have recommended repeat ultrasound and examined my office in 1 year. I will see her back in 1 year documented in this encounter [facility] 01-06-2024 History of Presen t illness Narrative Images from the original note were not included. Heather Norwood, Obstetrics and Gynecology Zari Yu Robbie 1970 01/06/24 [id number] Yearly Wellness Exam Chief Complaint Patient presents with Gynecologic Exam Pt presents for yearly exam. Had pelvic US a year ago with pain on her right groin area and states she never received results. Continues to have right groin pain. Had a hysterectomy menstrual cycle absent. Visit Vitals BP 120/80 Wt 188 lb BMI 34.39 kg/m Smoking Status Former BSA 1.93 m History of Present Illness Current Outpatient Medications Medication Sig Dispense Refill ALPRAZolam (Xanax) 0.25 MG tablet Take 0.25 mg by mouth as needed at bedtime for anxiety or sleep ofloxacin (Ocuflox) 0.3 % ophthalmic solution Administer 2 drops into the left eye in the morning and 2 drops at noon and 2 drops in the evening and 2 drops before bedtime. albuterol HFA 90 mcg/act inhaler Inhale 2 puffs in the morning and 2 puffs at noon and 2 puffs in the evening and 2 puffs before bedtime. omeprazole (PriLOSEC) [address] capsule Take 40 mg by mouth in the morning. Take before meals. ondansetron ODT (Zofran-ODT) 4 MG disintegrating tablet Take 4 mg by mouth every 8 (eight) hours if needed No current facility-administered medications for this visit. No Known Allergies History reviewed. No pertinent past medical history. Past Surgical History: Procedure Laterality Date SECTION, LOW TRANSVERSE 2006 HYSTERECTOMY 2012 TLH/RSO/LS, TVT-O, cystoscopy OB History Para Term AB Living 4 2 2 2 2 SAB IAB Ectopic Multiple Live Births 2 # Outcome Date GA Lbr Calvin/2nd Weight Sex Type Anes PTL Lv 4 AB 3 AB 2 Term Vag-Spont 1 Term CS-Unspec Obstetric Comments Pap 04/02/22- Neg Mammogram 05/08/22- Neg ([facility]) EGD/colonoscopy-[place] 2020 LAVH/RSO/LS ROS General: Denies fevers/chills Eyes: Denies vision changes ENT: Denies neck stiffness, neck mass Endocrine: Denies polydipsia and polyuria Respiratory: Denies shortness of breath Cardiovascular: Denies chest pain and palpitations Gastrointestinal: Denies changes in bowel habits, blood in stool, constipation and diarrhea. Hematology: Denies easy bruising. Women Only: Denies breast masses, skin changes, nipple discharge, abnormal bleeding, pelvic pain and dyspareunia Genitourinary: Denies dysuria, pelvic pain and nocturia Skin: Denies rashes/lesions Neurologic: Denies headaches, dizziness, syncope Psychiatric: Denies hallucinations, suicidal ideas EXAM GENERAL EXAMINATION: Alert, oriented, well developed, well nourished. HEAD: Normocephalic, atraumatic. EYES: NAFISA, sclera anicteric. EARS: No obvious hearing deficit. NECK/THYROID: Neck supple no cervical lymphadenopathy no thyromegaly. LYMPH NODES: No axillary, supraclavicular or inguinal adenopathy. SKIN: Warm and dry. No rashes HEART: Regular rate and rhythm. No murmur LUNGS: Clear to auscultation bilaterally. CHEST: Axillary nodes grossly normal. BREASTS: No dominant masses palpable bilaterally, no skin changes, nipple discharge, supra-clavicular or axillary adenopathy ABDOMEN: Soft, nontender, nondistended, no hernia or masses palpable. BACK: No obvious scoliosis/kyphosis. 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 EXTREMITIES No edema. NEUROLOGIC: Alert and oriented. PSYCH: Cooperative with exam. ICD-10-CM 1. Encounter for gynecological examination with abnormal finding Z01.411 2. Encounter for screening mammogram for malignant neoplasm of breast Z12.31 Bilateral screening mammogram with tomosynthesis 3. Pelvic pain in female R10.2 Advised pt to perform monthly self breast exams. Encouraged calcium and Vitamin D intake. She has c/o R sided ache, intermittent. Reviewed U/S from 04/2022- uterus surgically absent, R ovary surgically absent, r adnexa appears normal. LOC [id number], no free fluid. She has hx IBS. Exam essentially normal, no cause for pain noted on exam or U/S. Mammogram due, order sent. Up to date on colonoscopy. She will return in 1 year for annual exam. Entered by Diana Gurrola LPN acting as scribe for Dr. Heather Norwood. Signature: Diana Gurrola LPN The documentation recorded by the scribe accurately reflects the service(s) I personally performed and the decisions I made. Signature: Heather Norwood, DO Assessment & Plan documented in this encounter [facility] 01-06-2024 Evaluation note Authored January 06, 2024 8:11am The above note written by LUZ MARIA Tran acting as human recorder, note dictated by Dr.Brett Fuentes. [facility] Work Phone: [phone]) 244-591909-24-2024 Hospital Discharge instructions Patient Education 11/16/2023 17:28:49 BMI for Adults BMI for Adults Body mass index (BMI) is a number found using a person's weight and height. BMI can help tell how much of a person's weight is made up of fat. BMI does not measure body fat directly. It is used instead of tests that directly measure body fat, which can be difficult and expensive. What are BMI measurements used for? BMI is useful to: Find out if your weight puts you at higher risk for medical problems. Help recommend changes, such as in diet and exercise. This can help you reach a healthy weight. BMIscreening can be done again to see if these changes are working. How is BMI calculated? Your height and weight are measured. The BMI is found from those numbers. This can be done with U.S. or metric measurements. Note that charts and online BMI calculators are available to help you findyour BMI quickly and easily without doing these calculations. To calculate your BMI in U.S. measurements: 1.Measure your weight in pounds (lb). 2.Multiply the number of pounds by 703. So, for an adult who weighs 150 lb, multiply that number by 703: 150 x 703, which equals 105,450. 3.Measure your height in inches. Then multiply that number by itself to get a measurement called inches squared. So, for an adult who is 70 inches tall, the inches squared measurement is 70 inches x 70 inches, which equals 4,900 inches squared. 4.Divide the total from step 2 (number of lb x 703) by the total from step 3 (inches squared): 105,450 4,900 = 21.5. This is your BMI. To calculate your BMI in metric measurements: 1.Measure your weight in kilograms (kg). For this example, the weight is 70 kg. 2.Measure your height in meters (m). Then multiply that number by itself to get a measurement called meters squared. So, for an adult who is 1.75 m tall, the meters squared measurement is 1.75 m x 1.75 m, which equals 3.1 meters squared. 3.Divide the number of kilograms (your weight) by the meters squared number. In this example: 70 3.1 = 22.6. This is your BMI. What do the results mean? BMI charts are used to see if you are underweight, normal weight, overweight, or obese. The following guidelines will be used: Underweight: BMI less than 18.5. Normal weight: BMI between 18.5 and 24.9. Overweight: BMI between 25 and 29.9. Obese: BMI of 30 or above. BMI is a tool and cannot diagnose a condition. Talk with your health care provider about what your BMI means for you. Keep these notes in mind: Weight includes fat and muscle. Someone with a muscular build, such as an athlete, may have a BMI that is higher than 24.9. In cases like these, BMI is not a correct measure of body fat. If you have a BMI of 25 or higher, your provider may need to do more testing to find out if excess body fat is the cause. BMI is measured the same way for males and females. Females usually have more body fat than males of the same height and weight. Where to find more information For more information about BMI, including tools to quickly find your BMI, go to: Centers for Disease Control and Prevention: cdc.gov [place] [employer]: heart.org National Heart, Lung, and Blood [place]: nhlbi.nih.gov This information is not intended to replace advice given to you by your health care provider. Make sure you discuss any questions you have with your health care provider. Document Revised: 10/29/2022 Document Reviewed: 10/22/2022 [employer] Patient Education 2023 [employer] 11/16/2023 17:28:46 Stye Stye A stye, also known as a hordeolum, is a bump that forms on an eyelid. It may look like a pimple next to the eyelash. A stye can form inside the eyelid (internal stye) or outside the eyelid (external stye). A stye can cause redness, swelling, and pain on the eyelid. Styes are very common. Anyone can get them at any age. They usually occur in just one eye at a time, but you may have more than one in either eye. What are the causes? A stye is caused by an infection. The infection is almost always caused by bacteria called Staphylococcus aureus. This is a common type of bacteria that lives on the skin. An internal stye may result from an infected oil-producing gland inside the eyelid. An external stye may be caused by an infection at the base of the eyelash (hair follicle). What increases the risk? You are more likely to develop a stye if: You have had a stye before. You have any of these conditions: ?Red, itchy, inflamed eyelids (blepharitis). ?A skin condition such as seborrheic dermatitis or rosacea. ?High fat levels in your blood (lipids). ?Dry eyes. What are the signs or symptoms? The most common symptom of a stye is eyelid pain. Internal styes are more painful than external styes. Other symptoms may include: Painful swelling of your eyelid. A scratchy feeling in your eye. Tearing and redness of your eye. A pimple-like bump on the edge of the eyelid. Pus draining from the stye. How is this diagnosed? Your health care provider may be able to diagnose a stye just by examining your eye. The health care provider may also check to make sure: You do not have a fever or other signs of a more serious infection. The infection has not spread to other parts of your eye or areas around your eye. How is this treated? Most styes will clear up in a few days without treatment or with warm compresses applied to the area. You may need to use antibiotic drops or ointment to treat an infection. Sometimes, steroid drops or ointment are used in addition to antibiotics. In some cases, your health care provider may give you a small steroid injection in the eyelid. If your stye does not heal with routine treatment, your health care provider may drain pus from thestye using a thin blade or needle. This may be done if the stye is large, causing a lot of pain, oraffecting your vision. Follow these instructions at home: Take [id number] and prescription medicines only as told by your health care provider. This includes eye drops or ointments. If you were prescribed an antibiotic medicine, steroid medicine, or both, apply or use them as toldby your health care provider. Do not stop using the medicine even if your condition improves. Apply a warm, wet cloth (warm compress) to your eye for 5 10 minutes, 4 to 6 times a day. Clean the affected eyelid as directed by your health care provider. Do not wear contact lenses or eye makeup until your stye has healed and your health care provider says that it is safe. Do not try to pop or drain the stye. Do not rub your eye. Contact a health care provider if: You have chills or a fever. Your stye does not go away after several days. Your stye affects your vision. Your eyeball becomes swollen, red, or painful. Get help right away if: You have pain when moving your eye around. Summary A stye is a bump that forms on an eyelid. It may look like a pimple next to the eyelash. A stye can form inside the eyelid (internal stye) or outside the eyelid (external stye). A stye cancause redness, swelling, and pain on the eyelid. Your health care provider may be able to diagnose a stye just by examining your eye. Apply a warm, wet cloth (warm compress) to your eye for 5 10 minutes, 4 to 6 times a day. This information is not intended to replace advice given to you by your health care provider. Make sure you discuss any questions you have with your health care provider. Document Revised: 04/16/2021 Document Reviewed: 04/16/2021 [employer] Patient Education 2023 [employer]. Follow Up Care 11/16/2023 10:02:53 With:INESSA FUENTES DO, FAM Address: [address] [place] [id number] When: Unknown [facility] 09-24-2024 NotePatient Education Infectious Disease Stye A stye, also known as a hordeolum, is a bump that forms on an eyelid. It may look like a pimple next to the eyelash. A stye can form inside the eyelid (internal stye) or outside the eyelid (external stye). A stye can cause redness, swelling, and pain on the eyelid. Styes are very common. Anyone can get them at any age. They usually occur in just one eye at a time, but you may have more than one in either eye. What are the causes? A stye is caused by an infection. The infection is almost always caused by bacteria called Staphylococcus aureus. This is a common type of bacteria that lives on the skin. An internal stye may result from an infected oil-producing gland inside the eyelid. An external stye may be caused by an infection at the base of the eyelash (hair follicle). What increases the risk? You are more likely to develop a stye if: ? You have had a stye before. ? You have any of these conditions: ? Red, itchy, inflamed eyelids (blepharitis). ? A skin condition such as seborrheic dermatitis or rosacea. ? High fat levels in your blood (lipids). ? Dry eyes. What are the signs or symptoms? The most common symptom of a stye is eyelid pain. Internal styes are more painful than external styes. Other symptoms may include: ? Painful swelling of your eyelid. ? A scratchy feeling in your eye. ? Tearing and redness of your eye. ? A pimple-like bump on the edge of the eyelid. ? Pus draining from the stye. How is this diagnosed? Your health care provider may be able to diagnose a stye just by examining your eye. The health care provider may also check to make sure: ? You do not have a fever or other signs of a more serious infection. ? The infection has not spread to other parts of your eye or areas around your eye. How is this treated? Most styes will clear up in a few days without treatment or with warm compresses applied to the area. You may need to use antibiotic drops or ointment to treat an infection. Sometimes, steroid drops or ointment are used in addition to antibiotics. In some cases, your health care provider may give you a small steroid injection in the eyelid. If your stye does not heal with routine treatment, your health care provider may drain pus from thestye using a thin blade or needle. This may be done if the stye is large, causing a lot of pain, oraffecting your vision. Follow these instructions at home: ? Take ljsx-ino-jwmrsny and prescription medicines only as told by your health care provider. This includes eye drops or ointments. ? If you were prescribed an antibiotic medicine, steroid medicine, or both, apply or use them as told by your health care provider. Do not stop using the medicine even if your condition improves. ? Apply a warm, wet cloth (warm compress) to your eye for 5?10 minutes, 4 to 6 times a day. ? Clean the affected eyelid as directed by your health care provider. ? Do not wear contact lenses or eye makeup until your stye has healed and your health care providersays that it is safe. ? Do not try to pop or drain the stye. ? Do not rub your eye. Contact a health care provider if: ? You have chills or a fever. ? Your stye does not go away after several days. ? Your stye affects your vision. ? Your eyeball becomes swollen, red, or painful. Get help right away if: ? You have pain when moving your eye around. Summary ? A stye is a bump that forms on an eyelid. It may look like a pimple next to the eyelash. ? A stye can form inside the eyelid (internal stye) or outside the eyelid (external stye). A stye can cause redness, swelling, and pain on the eyelid. ? Your health care provider may be able to diagnose a stye just by examining your eye. ? Apply a warm, wet cloth (warm compress) to your eye for 5?10 minutes, 4 to 6 times a day. This information is not intended to replace advice given to you by your health care provider. Make sure you discuss any questions you have with your health care provider. Document Revised: 04/16/2021 Document Reviewed: 04/16/2021 [employer] Patient Education ? 2023 [employer]. Nutrition BMI for Adults Body mass index (BMI) is a number found using a person's weight and height. BMI can help tell how much of a person's weight is made up of fat. BMI does not measure body fat directly. It is used instead of tests that directly measure body fat, which can be difficult and expensive. What are BMI measurements used for? BMI is useful to: ? Find out if your weight puts you at higher risk for medical problems. ? Help recommend changes, such as in diet and exercise. This can help you reach a healthy weight. BMI screening can be done again to see if these changes are working. How is BMI calculated? Your height and weight are measured. The BMI is found from those numbers. This can be done with U.S. or metric measurements. Note that charts and online BMI calculators are (more content not included)...[facility] 05-03-2023 Miscellaneous Notes* Telephone Encounter - Lacey Patterson RN - 05/03/2023 12:36 PM EDT ----- Message from Jose Sinha Jr., DO sent at 04/30/2023 4:18 PM EST ----- HIDA unremarkable Jose Sinha Jr., DO documented in [facility] encounterC[facility] NoteHNO ID: [id number] Author: CAROLYN ACOSTA RT(R) Service: Nuclear Medicine Author Type: Explosives Worker Type: Progress Notes Filed: 05/19/2023 11:14 Note Text: RADIOLOGY SERVICE PROGRESS NOTE SERVICE DATE: 04/30/2023 SERVICE TIME: 12:45 PM PATIENT IDENTITY VERIFICATION COMPLETED USING TWO (2) STANDARD IDENTIFIERS: Name and Date of confirmed by patient verbally FALL SCREENING: Has the patient had 2 falls in the last year or 1 fall with injury or currently using an Ambulatory Assistive Device (Walker, Cane, Wheelchair, Crutches, etc.)? No PATIENT GENDER DATA: .female : No status: No ALLERGIES: Reviewed and unchanged MEDICATIONS REVIEWED: Yes PATIENT RELEVANT IMPLANT DATA REVIEWED: Not Applicable PATIENT PRESENTS WITH AN IMPLANTABLE OR ATTACHED DRY CLEANING ATTENDANT: No CREATININE: No results found for: CREAT , EGFROTH , EGFRAA P.O.C.T. RESULTS: N/A April 30, [address] PERFORMED: No IV SITE: Ambulatory: A peripheral IV was started in the Right forearm with a Angio cath: 24 gauge. IV start by MEGAN Winn. POST EXAM PIV STATUS: Discontinued PROCEDURE TYPE: NM INJECT: HIDA with EF. 5.6 mCi Tc99m CHOLETEC. CCK 1.66 micrograms intravenous at 14:19 by RT Ronda (N). Choletec IV ADMINISTRATION TIME: 13:10 by MEGAN Winn PATIENT DISCHARGED TO: Ambulatory patient, left [place] department area. A Diagnostic radioactive procedure has taken place, with no further precautions necessary other than routine body substance precautions. More information regarding radiation safety can be found using this link: [email or web address]%[email or web address]%20Medicine%[email or web address] SIGNATURE: RT Pa(R)MEGAN PATIENT NAME: Zari Yu Robbie DATE: April 30, 2023 TIME: 12:45 PM [id number] Miscellaneous Notes* Telephone Encounter - Lacey Patterson RN - 04/30/2023 8:56 AM EST Pt is a Ly pt currently at radiology having HIDA but the order needs to have EF. Please review and sign if agreeable. Thank you Laecy Patterson RN documented in this encounterC[facility]03-07-2024 Miscellaneous Notes* Telephone Encounter - Carolyn Acosta RT(R) - 04/29/2023 5:20 PM EST Spoke with patient confirming arrival of 12:45. Explained test, prep and restrictions. Answered herquestions. documented in this encounterC[facility]02-23-2024 Miscellaneous Notes* Allied Health - Giancarlo Rubalcava RT(R) - 04/16/2023 10:00 AM EST RADIOLOGY SERVICE PROGRESS NOTE SERVICE DATE: 04/16/2023 SERVICE TIME: 10:15 AM PATIENT IDENTITY VERIFICATION COMPLETED USING TWO (2) STANDARD IDENTIFIERS: Name and Date of confirmed by patient verbally FALL SCREENING: Has the patient had 2 falls in the last year or 1 fall with injury or currently using an Ambulatory Assistive Device (Walker, Cane, Wheelchair, Crutches, etc.)? No PATIENT GENDER DATA: .female ALLERGIES: Reviewed and unchanged MEDICATIONS REVIEWED: No PATIENT RELEVANT IMPLANT DATA REVIEWED: Not Applicable PATIENT PRESENTS WITH AN IMPLANTABLE OR ATTACHED DRY CLEANING ATTENDANT: No CREATININE: No results found for: CREAT , EGFROTH , EGFRAA P.O.C.T. RESULTS: N/A April 16, [address] PERFORMED: No IV SITE: NM only - not applicable, oral or physician administered agents given to patient POST EXAM PIV STATUS: Not applicable PROCEDURE TYPE: NM GET: 1.1 mCi Tc99m SULFUR COLLOID was administered orally via 4 ounces of Egg Beaters,2 pieces of toast, 1 ounce of jelly with 8 ounces of water orally ADMINISTRATION TIME: 10:13 PATIENT DISCHARGED TO: Ambulatory patient, left [place] department area. A Diagnostic radioactive procedure has taken place, with no further precautions necessary other than routine body substance precautions. More information regarding radiation safety can be found usingthis link: [email or web address]%20Nuclear%20Medicine%[email or web address] SIGNATURE: RT Jamaal(Geovanny) PATIENT NAME: Zari Yu Robbie DATE: April 16, 2023 TIME: 10:15 AM PAGER/CONTACT #: documented in this encounterC[facility]02-22-2024 Miscellaneous Notes* Telephone Encounter - Carolyn Acosta RT(R) - 04/15/2023 4:53 PM EST No answer so left voice mail. Asked her to arrive at 9:45. Explained test, restrictions and prep. documented in this encounterC[facility]02-05-2024 Evaluation note* Encounter Date Diagnosis Assessment Notes Treatment Notes Treatment Clinical Notes Mar, Thyroid nodule (ICD-10 - E04.1) Thyroid ultrasound noted bilateral heterogeneous thyroid with right-sided enlargement. Bilateral thyroid nodules. The dominant nodule on the right is mildly suspicious. Because of the size, percutaneous biopsy could be considered however this may be challenging due to The deep location. Therefore, I do recommend the patient have a consult with Dr. Veliz, patient is agreeable. Mar, Irritable bowel syndrome with diarrhea (ICD-10 - K58.0) Patient has been [facility]. She did have a recent HIDA scan and is scheduled to have a barium swallow test. Patient reports unable to scheduled with Dr. Erwin as she was was already established with Dr. Drake. [facility] Other [id number] Miscellaneous Notes* Telephone Encounter - Lacey Patterson RN - 03/25/2023 2:54 PM EST Patient aware of results and/or instructions per Dr. Ortiz and will try the 1/2 cap Miralax daily Lacey Patterson RN * Telephone Encounter - Lacey Patterson RN - 03/25/2023 2:54 PM EST ----- Message from Anne Ortiz DO sent at 03/25/2023 1:40 PM EST ----- Please review results of XR with pt which shows now acute abnormalities. On my review she does havesome small to mod stool burden. See If pt willing to add 1/2 cap miralax once daily to see if that helps with her symptoms at all. Continue plan as we otherwise discussed in the office. Thanks cl documented in this encounterC[facility]01-31-2024 NoteHNO ID: [id number] Author: LOLA HAMPTON RT(R) Service: Radiology Author Type: Explosives Worker Type: Progress Notes Filed: 03/24/2023 12:23 Note Text: Radiology Service Progress Note PATIENT NAME: Zari Velazquez DATE OF SERVICE: March 24, 2023 TIME: 12:22 PM PATIENT IDENTITY VERIFICATION COMPLETED USING TWO (2) IDENTIFIERS: Name and Date of confirmed by patient verbally and Name and Date of confirmed by identification band. FALL SCREENING: Has the patient had 2 falls in the last year or 1 fall with injury or currently using an Ambulatory Assistive Device (Walker, Cane, Wheelchair, Crutches, etc.)? No PATIENT GENDER DATA: Female. status: : No status: NO. PATIENT RELEVANT IMPLANT DATA REVIEWED: Not Applicable PATIENT PRESENTS WITH AN IMPLANTABLE OR ATTACHED DRY CLEANING ATTENDANT: No RADIOLOGY DEPARTMENT: General X-ray: Exam(s) Completed: Abdomen X-Ray: Abdomen with Upright PERIPHERAL IV DATA: Not applicable SIGNED BY: RT Anamika(R) March 24, 2023 12:22 [id number] NoteHNO ID: [id number] Author: ANNE ORTIZ DO Service: ? Author Type: Physician Type: Progress Notes Filed: 03/24/2023 15:19 Note Text: Chief Compliant: Consultation requested by Dr. Inessa Fuentes for an opinion regarding early satiety, bloating, irregular bm. My final recommendations will be communicated back to the requesting physician by way of shared Medical record or letter to requesting physician via [place] mail. HPI: Zari Velazquez is a 52 year old female with PMH significant for GERD, gastritis who presents for early satiety, irregular bowels, bloating. Pt reports symptoms for yrs. Describes as significant bloating and belching. BM are ookzrcnxf-7-3 per day on average, loose/runny/mushy in consistency, urgency, no incontinence, lower abd pain intermittently, +nausea but no vomiting. Only eats one meal a day because she feels that food moving slowly through her system and she is not digesting things. Gets full quickly. Denies any fevers, chills, dysphagia, sob, cp, palpitations, signs of bleeding, anorexia or wt loss-unable to lose wt. Has had multiple EGD/colonoscopy-reviewed available records below. Celiac serology has been negative. She had her GB evaluated in 2019-results limited but she did see a surgery and he did recommend holding on surgery at that time. She has tried fiber in the past but it caused worsening symptoms. She recently did a clean detoxifying diet x 1 month and does note feeling better on the diet-was having improved bm but continued to have persistence of some of her other symptoms. No fam hx of GI malignancy. Reviewed available labs and imaging. 12/28/22 noted in Care everywhere Dec, Irritable bowel syndrome with diarrhea (ICD-10 - K58.0) Patient had followed with Dr. Sinha in the past until he left [place], then patient was set up with Dr. Drake but made no progress. Therefore patient was scheduled with the [facility] but doesnt see them for another two months. Patient had voiced interest in getting a consult with Dr. Erwin to see what he has to say. I am agreeable, I did disucss with the patient based off her symptoms, she may have a pancreatic insufficiency. She is agreeable to the referral, this was initiated. 11/25/21 path from EGD with mapping per Dr. Sinha: Stomach antrum lesser curv. stomach antrum greater curv. Stomach body greater curv. (All negative for Stomach greater curv IM or dyplasia) Stomach fundus 11/29/20 EGD/colonoscopy were done per Dr. Sinha Normal EGD 2 flat small polyps, acending removed Random biopsies were taken Mild diverticulosis Path as follows: Stomach-chronic gastritis with intestinal metaplasia No dysplasia, negative HP Ascending polyp-hyperplastic Random biopsies were negative 10/27/18 path from EGD done per Dr. Navarrete as follows: Mild chronic gastritis negative HP Fundic gland polyp 03/29/18 air contrast esophagram with upper GI and small bowel series Tiny sliding type hiatal hernia and minor esoph dysmotility 03/08/17 EGD/colonoscopy were done: Few gastric polyps found 5 flat polyps found in ascending and transverse colon Last labs as follows: Basic Metabolic Panel on 01-03-2023 Anion gap [Moles/Vol] 10.8 mmol/L Normal [facility] [place] Comment on above: Performed By: #### BMP #### [facility] , Calcium [Mass/Vol] 8.8 mg/dL Normal 8.5-10.1 [facility] [place] Comment on above: Performed By: #### BMP #### [facility] , Chloride [Moles/Vol] 106 mmol/L Normal 98-107 [facility] [place] Comment on above: Performed By: #### BMP #### [facility] , CO2 [Moles/Vol] 26.8 mmol/L Normal 21.0-32.0 [facility] [place] Comment on above: Performed By: #### BMP #### [facility] , Creatinine [Mass/Vol] 0.65 mg/dL Normal 0.55-1.02 [facility] [place] Comment on above: Performed By: #### BMP #### [facility] , Estimated GFR ( Lindy >60 Potassium [Moles/Vol] 3.6 mmol/L Normal 3.5-5.1 [facility] [place] Comment on above: Performed By: #### BMP #### [facility] , Sodium [Moles/Vol] 140 mmol/L Normal 136-145 [facility] [place] Comment on above: Performed By: #### BMP #### [facility] , Urea nitrogen [Mass/Vol] 10.0 mg/dL Normal 7.0-18.0 [facility] [place] Comment on above: Performed By: #### BMP #### [facility] , Urea nitrogen/Creatinine [Mass ratio] 15.4 mg/mg Normal [facility] [place] Comment on above: Performed By: #### BMP #### [facility] , Basophil percentage on 01-03-2023 Chloride [Moles/Vol] 106 mmol/L Comprehensive Metabolic Panel on 12-22-2022 Albumin [Mass/Vol] 4.2 g/dL Normal 3.5-5.7 [facility] Comment on above: Order Comment: Reason for Exam Hyperlipidemia Performed By: #### CMP, LIPID, TSH3 #### [facility] [address] [id number] (more content not included)...[facility] 12-28-2022 Evaluation note* Encounter Date Diagnosis Assessment Notes Treatment Notes Treatment Clinical Notes Dec, Wellness examination (ICD-10 - Z00.00) Personalized health advice was given to the beneficiary to health education of preventative counseling services or programs aimed at reducing identified risk factors and improving self-management or community-based lifestyle interventions to reduce health risks and promote self-management and wellness, including physical activity and nutrition. A written plan for screenings was discussed, flu vaccination, routine lab studies, eye exams, as well as risk factors for other medical problems. Dec, Irritable bowel syndrome with diarrhea (ICD-10 - K58.0) Patient had followed with Dr. Sinha in the past until he left [place], then patient was set up with Dr. Drake but made no progress. Therefore patient was scheduled with the [facility] but doesnt see them for another two months. Patient had voiced interest in getting a consult with Dr. Erwin to see what he has to say. I am agreeable, I did disucss with the patient based off her symptoms, she may have a pancreatic insufficiency. She is agreeable to the referral, this was initiated. Dec, Hyperlipidemia (ICD-10 - E78.5) Blood work reviewed with the patient. Cholesterol levels have decreased from last check. Encouraged the patient to monitor diet and exercise. [facility] Other 07-19-2023 Evaluation note* Encounter Date Diagnosis Assessment Notes Treatment Notes Treatment Clinical Notes Aug, Irritable bowel syndrome with diarrhea (ICD-10 - K58.0) [facility] 02-14-2023 Evaluation note* Encounter Date Diagnosis Assessment Notes Treatment Notes Treatment Clinical Notes Mar, Cough, unspecified type (ICD-10 - R05.9) [facility] 01-06-2023 Evaluation note* Encounter Date Diagnosis Assessment Notes Treatment Notes Treatment Clinical Notes Feb, Hyperlipidemia (ICD-10 - E78.5) Review of pt's bloodwork today which is negative for any anemia, leukemia, or infection. Liver, kidney, and thyroid function is normal, as well as electrolytes and blood sugar. Cholesterol is elevated, with her total being 252, and her LDL being 155. Her cholesterol has been increasing steadily over the last few years. She denies any change in her diet, and reports she is physically active. We did discuss medication therapy for this, including risks and benefits of statin medications. I did recommend pt not begin any new medications until she is evaluated by Dr. Norwood for her abdominal pain. She is in agreement with this, and states she is going to start exercising more frequently, and improve her diet. We will re-evaluate her labs in the fall and before begining any medications. Feb, Anxiety (ICD-10 - F41.9) The above medication has been working well for the pt, who is taking it sparingly. Therefore refills were provided today, and she is to continue this. Feb, Leukocytes in urine (ICD-10 - R82.998) Review of pt's labs, which does show leukocytes in her urine. Pt denies any dysuria. She does c/o lower abdominal pain. She voices a history of uterine cysts, and states she is going to follow up with Dr. Norwood to see if this is the cause. I am in agreement with this, therefore we will continue to monitor. Feb, Irritable bowel syndrome with diarrhea (ICD-10 - K58.0) Pt is following with Dr. Drake for this, and will follow up yearly. She voices significant frustration with the lack of answers as to what is causing her GI issues. She [facility], and I am in agreement she may benefit from a referral to see Dr. Sinha, as she has seen him in the past. Referral initiated today. She is to continue the above medication, and we will continue to monitor. Feb, Screening for breast cancer (ICD-10 - Z12.39) Pt voices a family history of breast cancer, with her mother and maternal grandma. I did recommend she have a mammogram, and re-printed this order for her. She is agreeable with having this done. Feb, Obesity (ICD-10 - E66.9) We did discuss meditcation options that can be looked in to at her next appointment. Pt is encouraged to lose weight, change diet, and increase exercise as tolerated. [facility] Other 12-27-2022 Evaluation note* Encounter Date Diagnosis Assessment Notes Treatment Notes Treatment Clinical Notes Jan, GERD (gastroesophageal reflux disease) (ICD-10 - K21.9) [facility] 11-29-2022 Evaluation note* Encounter Date Diagnosis Assessment Notes Treatment Notes Treatment Clinical Notes Dec, GERD (gastroesophageal reflux disease) (ICD-10 - K21.9) [facility] 11-15-2022 Evaluation note* Encounter Date Diagnosis Assessment Notes Treatment Notes Treatment Clinical Notes Dec, Wellness examination (ICD-10 - Z00.00) Personalized health advice was given to the beneficiary to health education of preventative counseling services or programs aimed at reducing identified risk factors and improving self-management or community-based lifestyle interventions to reduce health risks and promote self-management and wellness, including physical activity and nutrition. A written plan for screenings was discussed, flu vaccination, routine lab studies, eye exams, as well as risk factors for other medical problems. Wellness form completed and signed. Dec, Screening mammogram for breast cancer (ICD-10 - Z12.31) Mammogram recommende d and ordered. The patient follows with for marketing research intern care. Dec, Leukocytes in urine (ICD-10 - R82.998) Trace leukocytes not ed upon review of in house urinalysis. The patient did complete a course of antibiotics , dysuria has resolved, continues to have lower abdominal discomfort. Urine culture is negative. Discussion was had the discomfort could be coming from her GI history . The patient states she also has a cyst on her ovary. I recommend if symptoms presist she consult with her rn rehab or marketing research intern to further evaluate. [facility] Other 10-04-2022 [facility]FirSelect [facility]* Encounter Date Diagnosis Assessment Notes Treatment Notes Treatment Clinical Notes Oct, Irritable bowel syndrome with both constipation and diarrhea (ICD-10 - K58.2) Upon examination, pt does have pain with palpation to her RUQ. She does still have her gallbladder. She reports she asked about having this removed, but was advised that this would cause more issues for her. I did review her CT of the abdomen from 09/2020 and it's negative findings with the pt. We discussed at length the pt's pain and GI symptoms and I educated the pt on the gallbladder and it's function. Pt voices frustration with this continued issue and reports feeling crazy because of lack of She will continue to follow with Dr. Drake. Oct, Intestinal metaplasia of gastric mucosa (ICD-10 - K31.89) Pt reports her last EGD revealed metaplasia. She is scheduled to have a follow up EGD with Dr. Drake. I educated the pt on metaplasia and the treatment options for this. She voices understanding and will continue to follow with Dr. Drake. Oct, Chronic superficial gastritis without bleeding (ICD-10 - K29.30) Oct, GERD (gastroesophageal reflux disease) (ICD-10 - K21.9) Pt is to continue with the above medication and we will continue to monitor. Oct, Anxiety (ICD-10 - F41.9) I did provide the above medication and counseled pt on risks and benefits of this medication. She voices understanding, so we will continue to monitor. Oct, Nausea (ICD-10 - R11.0) Pt states the zofran that was called in for her has helped with the nausea. We did discussed at length the possible etiology of this nausea. She reports testing positive for covid 10/31/21 and wondering if this could be causing her nausea. I advised pt needs to continue following with Dr. Drake and to get her EGD. Oct, History of COVID-19 (ICD-10 - Z86.16) I did order the above in house test to see if pt is still covid positive. [facility] Other 08-23-2022 Evaluation note* Encounter Date Diagnosis Assessment Notes Treatment Notes Treatment Clinical Notes Sep, GERD (gastroesophageal reflux disease) (ICD-10 - K21.9) Sep, Intestinal metaplasia of gastric mucosa (ICD-10 - K31.89) Sep, Chronic superficial gastritis without bleeding (ICD-10 - K29.30) Sep, Irritable bowel syndrome with diarrhea (ICD-10 - K58.0) Sep, Bloating (ICD-10 - R14.0) Sep, Abdominal pain (ICD-10 - R10.9) [facility] Other 11-09-2021 Evaluation note* Encounter Date Diagnosis Assessment Notes Treatment Notes Treatment Clinical Notes Dec, GERD (gastroesophageal reflux disease) (ICD-10 - K21.9) Dec, Intestinal metaplasi a of gastric mucosa (ICD-10 - K31.89) REPEAT EGD IN 1 YEAR - PLACED IN RECALL CONTINUE CARAFATE CONTINUE OMEPRAZOLE Dec, Chronic superficial gastritis without bleeding (ICD-10 - K29.30) Dec, Irritable bowel syndrome with diarrhea (ICD-10 - K58.0) Dec, Sigmoid diverticulosis (ICD-10 - K57.30) Dec, Hyperplastic colon polyp (ICD-10 - K63.5) REPEAT COLONOSCOPY IN 10 YEARS - PLACED IN RECALL [facility] Other Evaluation + Plan note No data available for this section [facility] Care Evaluation [facility]No [facility] Other Evaluation noteNo assessment information available [facility] Work Phone: Evaluation note* Diagnosis Dyspepsia Dyspepsia and other specified disorders of function of stomach documented in this encounter [facility] note* Diagnosis Dyspepsia- Primary Dyspepsia and other specified disorders of function of stomach Generalized abdominal pain Abdominal pain, generalized documented in this encounter [facility] note* Diagnosis Dyspepsia Dyspepsia and other specified disorders of function of stomach Generalized abdominal pain Abdominal pain, generalized [facility] Diagnosis Onset Date Resolution Status Anxiety acute Dyspepsia acute Thyroid nodule acute [facility] Work Phone: Evaluation note* Diagnosis Onset Date Resolution Status Diarrhea acute RUQ abdominal pain acute [facility] Work Phone: Evaluation note* Author Geno Caputo [facility] Authored January 06, 2024 8:11am The above note written by LUZ MARIA Tran acting as human recorder, note dictated by Dr.Brett Fuentes. [facility] Work Phone: Evaluation note* Diagnosis Encounter for gynecological examination with abnormal finding- Primary Encounter for screening mammogram for malignant neoplasm of breast Pelvic pain in female Unspecified symptom associated with female genital organs documented [facility] Diagnosis Thyroid nodule (CMS/HCC)- Primary Nontoxic uninodular goiter documented [facility]* Diagnosis Microcalcification of left breast on mammogram- Primary documented in this encounter [facility] Author Anderson Drake [facility] November 25, 2021 1:20pm Note Date/Time November 25, 2021 1: 20pm [facility] [address] [place] [address] Gastroenterology H&P Signed Patient: Zari Velazquez MR#: [id number] : 1970 Acct:[id number] Age/Sex: 51 / F Adm Date: 2 Loc: Room: Type: [facility] Attending Dr: Anderson Drake MD Copies to: DO Anderson Walters MD~ Date of Service: 11/25/2021 HISTORY & PHYSICAL: Patient's history with special attention to the cardiovascular, pulmonary systems and the current problem was reviewed with the patient immediately prior to the procedure. Present medications and doses reviewed in the EMR. Allergies and pertinent laboratory tests were also reviewedat this time in the EMR. The physical examination, as below, was then performed. Indication, assessment and HPI: 51-year-old female presents for EGD to evaluate history of intestinal metaplasia Family history of GI malignancy? No PHYSICAL EXAMINATION Mouth and Pharynx : Moist mucus membranes, normal dentition Cardiac: Regular rate, regular rhythm Pulmonary: Clear to auscultation bilaterally, no wheezing Neurological: Alert and oriented x3, no focal deficits noted Abdomen: Abdomen soft, non-tender REVIEW OF SYSTEMS Constitutional: Denies malaise, fevers Cardiovascular: Denies chest pain, palpitations Respiratory: Denies shortness of breath, wheezing Gastrointestinal: Per HPI Genitourinary: Denies dysuria, polyuria Musculoskeletal: Denies joint swelling, joint stiffness Neurological: Denies numbness, tingling Integumentary: Denies rashes, skin lesions Endocrine: Denies fatigue, weight loss Written informed consent obtained from the patient. Risks (including but not limited to perforation, infection, bloating, bleeding, need for emergent surgeryand loss of life), benefits and alternatives explained and questions answered. The patient verbalized understanding. Based on history patient is an appropriate candidate for the procedure. Anderson Drake MD Documented By: Anderson Drake MD 11/25/21 1319 Signed By: <Electronically signed by Anderson Drake MD> 11/25/21 1320 [facility] Work Phone: Hisqbpt general Narrative - Reported* Type Description Date Medical History Chickenpox Medical History Anxiety Medical History Stomach problems Medical History Mammogram-2010; 2014 mammogram D jose Norwood Medical History Pelvic Exam 2010 Dr. Norwood; 2014 hysterectomy and TVTO Medical History CAT scan 12/2008 Medical History Hidda Scan 12/2008 Medical History Ultrasound, Xray 12/2008 Medical History Blood Work done 04-15 Lipid, CMP, CBC,T4, TSH, Ferritin Medical History Colonoscopy 03/08/17; polyps ede josue Medical History 03-10-20 Covid + Surgical History 07/21/2005 Surgical History uterine ablation 2010 Surgical History elective sterilization 2010 Surgical History partial hysterectomy- has left ovary 2014 Hospitalization History hysterectomy/TVTO 2014 [facility] Other Hisnq[facility] general Narrative - Reported* Type Description Date Medical History Chickenpox Medical History Anxiety Medical History Stomach problems Medical History Mammogram-2010; 2014 mammogram D rJabari Visci Medical History Pelvic Exam 2010 Dr. Norwood; 2014 hysterectomy and TVTO Medical History CAT scan 12/2008 Medical History Hidda Scan 12/2008 Medical History Ultrasound, Xray 12/2008 Medical History Blood Work done 04-15 Lipid, CMP, CBC,T4, TSH, Ferritin Medical History Colonoscopy 03/08/17; polyps ede josue Medical History 03-10-20 Covid + Surgical History 07/21/2005 Surgical History uterine ablation 2010 Surgical History elective sterilization 2010 Surgical History partial hysterectomy- has left ovary 2014 Surgical History EGD with bx per Dr. Drake 2021 Surgical History Bladder suspension with mesh Hospitalization History hysterectomy/TVTO 2014 [facility] Other Hospital Discharge instructions Additional Instructions DISCHARGE INSTRUCTIONS FOR UPPER ENDOSCOPY WHAT TO EXPECT: - You may feel full, gassy or cramping after your procedure. In some cases, this may be from a few hours to a day. Walking may help relieve the discomfort. - Your throat may feel sore today from the scope that the doctor passed through your throat to visualize your stomach. Take a throat lozenge or suck on ice to ease the discomfort. - You may notice some streaks of blood in your sputum if the doctor has taken a biopsy. - You should begin to recover from anesthesia within 1 hour of the procedure, however may feel groggy for the next 24 hours. DO's AND DON'Ts: - Call your doctor right away if you have a hard abdomen, severe pain, vomiting or if you cough up large amounts of blood. - Call your doctor if you develop any rashes, hives or difficulty breathing. - If you take 81 mg aspirin for your heart it is safe to resume this medication. - If you take other blood thinner medications your doctor will instruct you when these can safely be resumed. - Do NOT drive for 24 hours. - Do NOT operate machinery such as power tools, lawn mowers, snow blowers, sewing machines, etc. for 24 hours. - Avoid alcoholic beverages and drugs for allergies, nerves, or sleep. - Do NOT stay alone. Do NOT leave your child unattended. - Do NOT make important personal or business decisions or sign any legal documents. - Eat solid foods and drink liquids in smaller amounts than usual until normal appetite returns. If you should experience an upset stomach, liquids high in sugar content (soda, Luciano-Aid, non-acid juices) are recommended. - Do NOT smoke. - Do take it easy today. You need not stay in bed, but avoid strenuous activities such as jogging or working out. FOLLOW UP & RECOMMENDATIONS: - Dr. Drake's office will notify you of your results and follow-up. - Notify the doctor if you have any problems. - Follow up with PCP. - Office number [phone].[facility] Work Phone: Progress note No data available for this section [facility] Reason for referral (narrative)* Diagnostic Procedure Only (Routine) - Closed Specialty Diagnoses / Procedures Referred By Contac t Referred To Contact MOLECULAR & FUNCTIONAL IMAGING Diagnoses Dyspepsia Procedures NM GASTRIC EMPTYING SOLID [place] [address] [place] [address] Molecular & Functional Imaging [address] [place] [address] Referral ID Status Reason Start Date Expiration Date V isits Requested Visits Authorized [id number] Closed Auto-Generate d Referral 03/31/2023 02/22/2024 1 1 [facility] for referral (narrative)* Diagnostic Procedure Only (Routine) - Closed Specialty Diagnoses / Procedures Referred By Contac t Referred To Contact MOLECULAR & FUNCTIONAL IMAGING Diagnoses Dyspepsia Generalized abdominal pain Procedures NM HEPATOBILIARY W EF AND/OR RX HEPATOBIL SYST IMAG INC GB W/PHARMA INTERVJose Sandhu Jr., DO [address] [place] [address] Molecular & Functional Imaging [address] [place] [address] Referral ID Status Reason Start Date Expiration Date V isits Requested Visits Authorized [id number] Closed Auto-Generate d Referral 04/30/2023 02/22/2024 1 1 [facility] for referral (narrative)* Diagnostic Procedure Only (Routine) - Closed Specialty Diagnoses / Procedures Referred By Contac t Referred To Contact MOLECULAR & FUNCTIONAL IMAGING Diagnoses Dyspepsia Generalized abdominal pain Procedures NM HEPATOBILIARY W EF AND/OR RX HEPATOBIL SYST IMAG INC GB W/PHARMA INTERVJose Sandhu Jr., DO [address] [place] [address] Molecular & Functional Imaging [address] [place], [place] [id number] Referral ID Status Reason Start Date Expiration Date V isits Requested Visits Authorized [id number] Closed Auto-Generate d Referral 04/30/2023 02/22/2024 1 1 [facility] for visit NarrativeReviewed- GI Referral UpdateNort [facility] Other Reason for visit Narrative* Diagnostic Procedure Only (Routine) - Closed Specialty Diagnoses / Procedures Referred By Contac t Referred To Contact MOLECULAR & FUNCTIONAL IMAGING Diagnoses Dyspepsia Procedures NM GASTRIC EMPTYING SOLID GASTRIC EMPTYING STUDY Anne Ortiz [address] [place] [address] Molecular & Functional Imaging [address] [place] [address] Referral ID Status Reason Start Date Expiration Date V isits Requested Visits Authorized [id number] Closed Auto-Generate d Referral 03/31/2023 02/22/2024 1 1 [facility] for visit Narrative* Diagnostic Procedure Only (Routine) - Closed Specialty Diagnoses / Procedures Referred By Contkal crawford Referred To Contact MOLECULAR & FUNCTIONAL IMAGING Diagnoses Dyspepsia Generalized abdominal pain Procedures NM HEPATOBILIARY W EF AND/OR RX HEPATOBIL SYST IMAG INC GB W/PHARMA INTERVENJ Jose Sinha Jr., DO [address] [place] [address] Molecular & Functional Imaging [address] [place] [address] Referral ID Status Reason Start Date Expiration Date V isits Requested Visits Authorized [id number] Closed Auto-Generate d Referral 04/30/2023 02/22/2024 1 1 [facility] Summary Purpose Family History No Family History Records Found Relationship Condition Age at Onset Recorded Date/T jazmine Not Specified Diabetes mellitus Unknown Heart disease Unknown Malignant neoplasm Unknown Relationship Condition Age at Onset Recorded Date/T jazmine Not Specified Malignant neoplasm Unknown Diabetes mellitus Unknown grandparent Malignant neoplasm Unknown grandparent Diabetes mellitus Unknown grandparent Heart disease Unknown father Heart disease Unknown Relationship Condition Age at Onset Recorded Date/T jazmine mother Malignant neoplasm Unknown Diabetes mellitus Unknown grandparent Malignant neoplasm Unknown grandparent Diabetes mellitus Unknown grandparent Heart disease Unknown father Heart disease Unknown Advance Directives No Advanced Directives Records Found Advance Directive Response Recorded Date/ Time Advance Directives No December 17, 2016 3:24pm Advance Directive Response Recorded Date/ Time Advance Directives No December 17, 2016 2:24pm Chief Complaint and Reason for Visit Chief Complaint Abdominal Pain, GERD , Bloating, Gastritis Chief Complaint Abdominal Pain, GERD , Bloating, Gastritis Abdomina; Pain, GERD Chief Complaint Abdominal Pain, GERD , Bloating, Gastritis Abdomina; Pain, GERD R30.0 N39.0 R31.9 Chief Complaint Thyroid Nodule follow up Reason for Visit Anxiety Dyspepsia Thyroid nodule Chief Complaint ruq abdominal pain Reason for Visit Diarrhea RUQ abdominal pain Chief Complaint Admit Date ruq abdominal pain November 12, 2023 10:55am Wellness/ Come in fasting January 06, 2024 7:26am Reason for Visit Admit Date Diarrhea November 12, 2023 10:55am RUQ abdominal pain November 12, 2023 10:55am Body mass index 31.0-31.9, adult Novembe r 2023 7:26am Leukocytes in urine January 06, 2024 7:26am Obesity January 06, 2024 7:26am Thyroid nodule January 06, 2024 7:26am Wellness examination January 06, 2024 7:26am Chief Complaint Admit Date Wellness/ Come in fasting January 06, 2024 7:26am Screening January 27, 2024 3 :11pm R10.11 February 03, 2024 8:00am r92.8 r92.0 March 14, 2024 8 :47am Reason for Visit Admit Date Body mass index 31.0-31.9, adult Novembe r 2023 7:26am Leukocytes in urine January 06, 2024 7:26am Obesity January 06, 2024 7:26am Thyroid nodule January 06, 2024 7:26am Wellness examination January 06, 2024 7:26am Chief Complaint Admit Date Wellness/ Come in fasting January 06, 2024 7:26am Screening January 27, 2024 3 :11pm R10.11 February 03, 2024 8:00am r92.8 r92.0 March 14, 2024 8 :47am N63.22 March 28, 2024 1 0:18am Reason for Referral Reason * 04/05 consult and treat Diagnosis 1 Thyroid nodule (E04. 1) Referral Organization [facility] [place] Referring Provider First Name Inessa Referring Provider Last Name Gina Referring Provider Specialty Family Prac rajesh Referred Organization [facility] Referred Provider Fausto Veliz Referred Address ,[place], [place],[address] Referred Provider Specialty Otolaryngolo gy Referral Priority Routine General Notes Lacey Larry 01:20:03 PM >received today, sending referral at this time for scheduling Reason consult and treat Diagnosis 1 Irritable bowel synd ana with diarrhea (K58.0) Referral Organization [facility] [place] Referring Provider First Name Inessa Referring Provider Last Name Gina Referring Provider Specialty Family Prac rajesh Referred Organization [facility] Gastroenterolo gy Referred Provider Lisa Erwin Referred Address [address] [facility] [address] ,[place], [place],[address] Referred Provider Specialty Gastroentero logy Referral Priority Routine Reason CANCELLED Evaluate and Treat Diagnosis 1 Irritable bowel synd ana with diarrhea (K58.0) Referral Organization [facility] [place] Referring Provider First Name Inessa Referring Provider Last Name Gina Referring Provider Specialty Family Prac rajesh Referred Organization [facility] Referred Provider Jose Sinha Referred Address [address] [place], [place],[address] Referred Provider Specialty Gastroentero logy Referral Priority Routine General Notes Lola Colindres 023 10:03:29 AM >Received today. Fax referral with [facility] Form along with operative reports. The referral dept. will call patient and schedule appt Lola Colindres 03/09/2022 02:18:11 PM >Spoke with Lola at [facility] Referral Dept and patient has not been scheduled yet. They have the referral but have not called patient to schedule. She will try to reach out to patient today Lola Colindres 03/16/2022 09:45:10 AM >Received letter from [facility] referral office that they have called patient x2 and patient has not returned their calls. I will try myself to call patient and see if she is still interested Lola Colindres 03/16/2022 11:03:44 AM >Spoke with patient and she is still interested in this referral and will call to schedule her appt Lola Colindres 03/23/2022 12:06:26 PM >Spoke with Shraddha at [facility] Referral Dept. and patient has not been scheduled yet. I will give patient 1 more week to schedule and if patient is not scheduled then the referral will be closed Lola Colindres 03/30/2022 09:49:11 AM >Spoke with Germán at [facility] Line and patient has not called to schedule. Lola Colindres 03/30/2022 09:52:22 AM >Telephone encounter was sent Additional Source Comments INFORMATION SOURCE (unrecogn ized section and content) DATE CREATED AUTHOR 03/29/2021 [facility] DATE CREATED AUTHOR AUTHOR'S ORGANIZ ATION 05/04/2023 [facility] DATE CREATED AUTHOR AUTHOR'S ORGANIZ ATION 05/20/2023 [facility] DATE CREATED AUTHOR AUTHOR'S ORGANIZ ATION 11/18/2023 [facility] DATE CREATED AUTHOR AUTHOR'S ORGANIZ ATION 03/25/2024 [facility] dical Specialists [facility] DATE CREATED AUTHOR AUTHOR'S ORGANIZ ATION 04/05/2024 [facility] [address] [facility] REASON FOR VISIT (unrecogniz ed section and content) Reason Comments Results Reason Comments Radiology NM Appointment reminder . Reason Comments Orders HIDA w/EF Reason Comments Gynecologic Exam Pt presents for year ly exam. Had pelvic US a year ago with pain on her right groin area and states she never received results. Continues to have right groin pain. Had a hysterectomy menstrual cycle absent. Reason Comments Thyroid Nodule 6 month los Reason Comments Abnormal Left mamm Care Teams (unrecognized sec tion and content) Team Status: Inactive Member Role Status Dates Inessa Fuentes DO Primary Care Provider, Attending Provi sonal Active Team Status: Inactive Member Role Status Dates Inessa Fuentes DO Primary Care Provider Active Anderson Drake MD Attending Provider Active Team Status: Active Member Role Status Dates Inessa Fuentes DO Primary Care Provider Active Team Status: Inactive Member Role Status Dates Inessa Kuns , DO Attending Provider Active 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 Start Date End Date Inessa Fuentes [address] [place] [phone] PCP - General Family Medicine 11/25/22 Inessa Fuentes [address] [place] [phone] Referring Family Medicine 03/02/22 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 Start Date End Date Inessa Fuentes [address] [place] [phone] PCP - General Family Medicine 11/25/22 Inessa Fuentes [address] [place] [phone] Referring Family Medicine 03/02/22 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 Start Date End Date Inessa Fuentes [address] [place] [phone] PCP - General Family Medicine 11/25/22 Inessa Fuentes [address] [place] [phone] Referring Family Medicine 03/02/22 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 Start Date End Date Inessa Fuentes [address] [place] [phone] PCP - General Family Medicine 11/25/22 Inessa Fuentes [address] [place] [phone] Referring Family Medicine 03/02/22 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 Start Date End Date Inessa Fuentes [address] [place] [phone] PCP - General Family Medicine 11/25/22 Inessa Fuentes [address] [place] [address] Referring Family Medicine 03/02/22 Team Status: Inactive Member Role Status Dates Inessa Fuentes DO Primary Care Provider Active Sta rt: July 05, 2023 End: July 05, 2023 Fausto Veliz DO Attending Provider Active S tart: July 05, 2023 End: July 05, 2023 Team Status: Inactive Member Role Status Dates Inessa Fuentes DO Primary Care Provide r, Attending Provider Active Start: August 10, 2023 End: August 10, 2023 Team Status: Inactive Member Role Status Dates Inessa Fuentes DO Primary Care Provider Active Sta rt: November 12, 2023 End: November 12, 2023 Anne Ortiz DO Attending Provider Active St art: November 12, 2023 End: November 12, 2023 Team Status: Inactive Member Role Status Dates Inessa Fuentes DO Primary Care Provide r, Attending Provider Active Start: January 06, 2024 End: January 06, 2024 Team Status: Active Member Role Status Dates Inessa Fuentes DO Primary Care Provide r, Attending Provider Active Start: January 06, 2024 Team Status: Active Member Role Status Dates Inessa Fuentes DO Primary Care Provide r, Other Provider Active Start: January 06, 2024 Vin Bliss MD Attending Provider Active Start: December 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 Start Date End Date Inessa Fuentes DO [address] [place] [phone] PCP - General Family Medicine 06/11/23 Fausto Veliz DO [address] [place] [address] Otolaryngology 07/26/23 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 Start Date End Date Inessa Fuentes DO [address] [place] [facility] [place] [phone] PCP - General Family Medicine 06/11/23 Fausto Veliz DO [address] [place] [address] Otolaryngology 07/26/23 Team Status: Inactive Member Role Status Dates Inessa Fuentes DO Primary Care Provider Active Sta rt: January 27, 2024 End: January 27, 2024 Referral Self Attending Provider Active Start: D 2023 End: January 27, 2024 Heather Norwood DO Referring Provider Active Sta rt: January 27, 2024 End: January 27, 2024 Team Status: Inactive Member Role Status Dates Inessa Fuentes DO Primary Care Provider Active Sta rt: February 03, 2024 End: February 03, 2024 Anne Ortiz DO Attending Provider Active St art: February 03, 2024 End: February 03, 2024 Team Status: Inactive Member Role Status Dates Inessa Fuentes DO Primary Care Provider Active Sta rt: March 14, 2024 End: March 14, 2024 Heather Norwood DO Attending Provider Active Sta rt: March 14, 2024 End: March 14, 2024 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 Start Date End Date Inessa Fuentes DO [address] [place] [facility] [place] [address] PCP - General Family Medicine 06/11/23 Fausto Veliz DO [address] [place] [address] Otolaryngology 07/26/23 Team Status: Inactive Member Role Status Dates Inessa Fuentes DO Primary Care Provider Active Sta rt: March 28, 2024 End: March 28, 2024 Alanna Don DO Attending Provider Active Start: March 28, 2024 End: March 28, 2024 Goals (unrecognized section and content) Goals may be documented in a n alternate section Source Comments (unrecognize d section and content) In the event this informatio n is protected by the Federal Confidentiality of Alcohol and Drug Abuse Patient Records regulations: The Federal rules restrict any use of the information to criminally investigate or prosecute any alcohol or drug abuse patient.[facility] the event this information is protected by the Federal Confidentiality of Alcohol and Drug Abuse Patient Records regulations: The Federal rules restrict any use of the information to criminally investigate or prosecute any alcohol or drug abuse patient.[facility] the event this information is protected by the Federal Confidentiality of Alcohol and Drug Abuse Patient Records regulations: The Federal rules restrict any use of the information to criminally investigate or prosecute any alcohol or drug abuse patient.[facility] HospitalIn the event this information is protected by the Federal Confidentiality of Alcohol and Drug Abuse Patient Records regulations: The Federal rules restrict any use of the information to criminally investigate or prosecute any alcohol or drug abuse patient.[facility] HospitalIn the event this information is protected by the Federal Confidentiality of Alcohol and Drug Abuse Patient Records regulations: The Federal rules restrict any use of the information to criminally investigate or prosecute any alcohol or drug abuse patient.[facility] HospitalIn the event this information is protected by the Federal Confidentiality of Alcohol and Drug Abuse Patient Records regulations: The Federal rules restrict any use of the information to criminally investigate or prosecute any alcohol or drug abuse patient.[facility] HospitalIn the event this information is protected by the Federal Confidentiality of Alcohol and Drug Abuse Patient Records regulations: The Federal rules restrict any use of the information to criminally investigate or prosecute any alcohol or drug abuse patient.[facility] FOR RECORDS PERTAINING TO PATIENTS WHO ARE OR HAVE BEEN ENROLLED IN A CHEMICAL DEPENDENCY/SUBSTANCEABUSE PROGRAM, SOME INFORMATION MAY BE OMITTED. This clinical summary was aggregated from multiple sources. Caution should be exercised in using it in the provision of clinical care. This summary normalizes information from multiple sources, and as a consequence, information in this document may materially change the coding, format and clinical context of patient data. In addition, data may be omitted in some cases. CLINICAL DECISIONS SHOULD BE BASED ON THE PRIMARY CLINICAL RECORDS. [facility]. provides no warranty or guarantee of the accuracy or completeness of information in this document.
[2024-04-07 22:50] LABS: Influenza Virus A Antigen Negative; Influenza Virus B Antigen Negative; Internal Control Within Normal Limits; SARS-CoV-2 Ag NEGATIVE (NEGATIVE)
[2024-04-07 23:03] LABS: Internal Control Within Normal Limits; Respiratory Syncytial Virus Not Detected (NOT DETECTE)
--- NOTE | 2024-04-07 23:04 | ED.GENADUL1 ---
HPI HPI - General Adult General Chief complaint: Upper Respiratory Infection Stated complaint: Upper Respiratory Infection Time Seen by Provider: 04/07/24 22:29 Source: patient Mode of arrival: walk-in Limitations: no limitations History of Present Illness HPI narrative: Patient presents to the ED stating she developed an illness starting 5 days ago with cough and congestion, feverishness and bodyaches. She called her PCP 4 days ago and was started on Z-Zeeshan and an oral steroid. Her cough has gotten worse and tonight when she called him he added Tessalon Perles but she has not felt much better. She is status post hysterectomy. She is not hypertensive or diabetic. Patient also reports right lower quadrant pain that she has had for months which is now gotten worse since she started coughing. She denies anorexia or vomiting. She has had loose stool all week. She has had hysterectomy and right-sided salpingo-oophorectomy Related Data Home Medications ?Medication ?Instructions ?Recorded ?Confirmed ibuprofen 600 mg tablet (IBU) 600 mg PO Q6H 01/03/23 01/03/23 omeprazole 40 mg capsule,delayed 40 mg PO DAILY 01/03/23 01/03/23 release Previous Rx's ?Medication ?Instructions ?Recorded ketorolac 10 mg tablet 10 mg PO Q8H PRN pain #14 tabs 01/03/23 budesonide-formoterol HFA 160 2 puff inhalation BID #10.2 grams 04/08/24 mcg-4.5 mcg/actuation aerosol inhaler (Symbicort) ondansetron 4 mg disintegrating 4 mg PO Q6H PRN nausea and 04/08/24 tablet vomiting #10 tabs Allergies Allergy/AdvReac Type Severity Reaction Status Date / Time No Known Drug Allergies Allergy Verified 01/03/23 18:03 Opioid HPI Opioid Management Most Recent Opioid Data: Last Pain Scale 9 01/03/23 20:17 01/03/23 Review of Systems ROS Status of ROS 10 or more systems reviewed and unremarkable except as noted in history and below [facility] PFS Social History Smoking status: Former smoker Little interest or pleasure in doing things: not at all Feeling down, depressed, or hopeless: not at all Exam Narrative Exam Narrative: Afebrile with stable vital signs. HEENT exam is normal to inspection. Oral cavity is moist with no erythema. Neck is supple. Lung sounds are grossly clear to auscultation bilaterally there are no rales or rhonchi. Heart has regular rate and rhythm. Abdomen is protuberant and soft. Bowel sounds are hypoactive there is no fluid wave or organomegaly. She is tender in the right lower quadrant but does not have peritoneal signs. She does not have unilateral leg swelling or calf tenderness or pedal edema. There is no facial asymmetry. Speech and mentation are clear and intact. She moves all extremities actively. Constitutional Vital Signs, click to edit/add: Last Vital Signs Temp 98.3 F 04/07/24 22:30 Pulse 78 04/08/24 01:53 Resp 14 04/08/24 01:53 BP 118/64 04/08/24 01:53 Pulse Ox 98 04/08/24 01:53 O2 Del Method Room Air 04/08/24 01:53 Course Vital Signs Vital signs: Vital Signs Temperature 98.3 F 04/07/24 22:30 Pulse Rate 94 H 04/07/24 22:30 Respiratory Rate 18 04/07/24 22:30 Blood Pressure 137/85 04/07/24 22:30 Pulse Oximetry 95 04/07/24 22:30 Oxygen Delivery Method Room Air 04/07/24 22:30 Temperature 98.3 F 04/07/24 22:30 Pulse Rate 78 04/08/24 01:53 Respiratory Rate 14 04/08/24 01:53 Blood Pressure 118/64 04/08/24 01:53 Pulse Oximetry 98 04/08/24 01:53 Oxygen Delivery Method Room Air 04/08/24 01:53 Medical Decision Making [facility] Narrative Medical decision making narrative: Patient tested negative for influenza, COVID and RSV. CT scan of the chest did not show infiltrate but there was an incidental finding of a 0.3 mm nodule in the right lung apex. Patient was given this information and was advised to contact her PCP for further surveillance. Thyroid nodule is also reported on the CT scan of the chest and she states she is aware of that and has had an ultrasound biopsy of that nodule in the past. She had a breast biopsy last week which explains the surgical clip in the left breast. CT scan of the abdomen revealed a normal-looking appendix and a cyst in the left ovary. Patient is aware of the cyst in the left adnexa. She is placed on an Zofran for nausea and vomiting and on Symbicort inhaler twice a day. DuoNeb aerosol treatment in the ED seems to help her symptoms. My impression is that she has a viral upper respiratory tract infection and should benefit from supportive care. Follow-up is with her physician after 3 to 4 days and she may return anytime for worsening symptoms. Lab Data Labs: Lab Results 04/07/24 Range/Units 22:31 Influenza Type A Ag Negative Influenza Type B Ag Negative RSV Antigen Not detected (NOT DETECTE) SARS-CoV-2 Ag (CV2AG) Negative (NEGATIVE) Discharge Plan Discharge Chief Complaint: Upper Respiratory Infection Clinical Impression: Incidental lung nodule Upper respiratory infection Qualifiers: URI type: unspecified URI Qualified Code(s): J06.9 - Acute upper respiratory infection, unspecified Patient Disposition: Home, Self-Care Time of Disposition Decision: 02:18 Condition: Good Mode of Transportation: Private Vehicle Prescriptions / Home Meds: New budesonide-formoterol [Symbicort] 160-4.5 mcg/actuation HFA aerosol inhaler 2 puff inhalation BID Qty: 10.2 0RF ondansetron 4 mg tablet,disintegrating 4 mg PO Q6H PRN (Reason: nausea and vomiting) Qty: 10 0RF No Action ibuprofen [IBU] 600 mg tablet 600 mg PO Q6H omeprazole 40 mg capsule,delayed release(DR/EC) 40 mg PO DAILY ketorolac 10 mg tablet 10 mg PO Q8H PRN (Reason: pain) Qty: 14 0RF Print Language: Cameroonian Instructions: Upper Respiratory Infection (ED) Additional Instructions: Medications as prescribed. Follow-up with your physician for surveillance of lung nodule identified in today's CT scan of the lung. Return for worsening symptoms. Referrals: INESSA FUENTES [Primary Care Provider] - 1 week
--- NOTE | 2024-04-07 23:06 | CT_ITS ---
[facility] [place] [id number] Patient Name: VERN Yu MARCUS MRN: [id number] date: 1970 Sex: F Assigned Patient Location: ER Current Patient Location: ER Accession/Order Number: [id number] Exam Date: 04/07/2024 23:05 Report Date: 04/08/2024 01:56 At the request of: JUANA AVILA Procedure: CT chest wo con EXAMINATION: CT chest wo con, 04/07/2024 9:05 PM MST HISTORY: cough COMPARISON: None. TECHNIQUE: CT scan of the chest was performed without IV contrast. CT dose reduction technique was used, including Automated Exposure Control. FINDINGS: There is 0.3 cm nodule in the right lung apex (series 4, image 17). The central airways are patent. No pleural effusion or pneumothorax is seen. The cardiac chambers appear normal in size. The thoracic aorta and pulmonary arteries are normal in caliber. There is no mediastinal, hilar, or axillary lymphadenopathy by CT size criteria. The esophagus appears unremarkable. A surgical clip is seen within the left breast. There is a posterior right thyroid gland nodule measuring up to 1.9 x 2.0 cm (series 4, image 10). Images through the upper abdomen reveal no significant abnormalities. No suspicious or aggressive bone lesions are seen. No acute fractures are seen. CORONARY ARTERIES: Coronary calcifications are absent. CT/CT chest wo con IMPRESSION: 1. No acute cardiopulmonary abnormality. 2. There is a 0.3 cm nodule in the right lung apex. Recommend follow-up according to Fleischner Society guidelines: An optional CT of the chest in one year if the patient is high risk. 3. Right thyroid gland nodule. This could be further evaluated with a nonemergent outpatient ultrasound examination if clinically indicated. Electronically authenticated by: Radha CHARLES Date: 04/08/2024 01:56
--- NOTE | 2024-04-07 23:06 | CT_ITS ---
[address] [address] Patient Name: VERN Yu MARCUS MRN: [id number] date: 1970 Sex: F Assigned Patient Location: ER Current Patient Location: Accession/Order Number: [id number] Exam Date: 04/07/2024 23:05 Report Date: 04/08/2024 02:00 At the request of: JUANA AVILA Procedure: CT abdomen pelvis wo con EXAM: CT abdomen pelvis wo con HISTORY: rlq pain COMPARISON: None. TECHNIQUE: Noncontrast axial CT images through the abdomen and pelvis were obtained with coronal and sagittal reformats. Dose reduction techniques were achieved by using automated exposure control and/or adjustment of mA and/or kV according to patient size and/or use of iterative reconstruction technique. FINDINGS: The visualized portions of the lung bases are clear. There is a small posterior left Bochdalek hernia. Abdomen: Please note that the sensitivity for detection of focal lesions or vascular disease is markedly reduced without intravenous contrast. The liver and spleen are unremarkable. There is no intra or extrahepatic biliary duct dilatation. The gallbladder is unremarkable. There is colonic diverticulosis without evidence of acute inflammation. Otherwise, the pancreas, adrenal glands, kidneys, and bowel loops, including the appendix, are unremarkable. There is no mesenteric or retroperitoneal lymphadenopathy. Pelvis: The bladder and rectum are unremarkable. There is no iliac or inguinal lymphadenopathy. The uterus is absent. The right ovary is not clearly seen. There is a left adnexal cystic structure measuring up to 4.0 x 2.6 cm (series 6, image 99). Bone windows show no aggressive osseous lesions. There is nonspecific sclerosis about the sacroiliac joints. CT/CT abdomen pelvis wo con IMPRESSION: 1. No specific etiology identified to explain the patient's abdominal pain. 2. Colonic diverticulosis without evidence of acute inflammation. 3. Normal appendix. 4. Left adnexal cystic structure measuring up to 4.0 x 2.6 cm. This could be further evaluated with a pelvic ultrasound examination if clinically indicated. Electronically authenticated by: Radha CHARLES Date: 04/08/2024 02:00
[2024-04-08] MEDS: IPRATROPIUM/ALBUTEROL SULFATE 3 ML AMPUL.NEB IH (00:05)
[2024-04-08 00:07] VITALS: PULSE 83; O2SAT 96
[2024-04-08] MEDS: ONDANSETRON 4 MG RAPDIS TABLET SL (01:21)
[2024-04-08 01:53] VITALS: BP 118/64; PULSE 78; O2SAT 98
== END 2024-04-08 02:49 | disposition home or self-care (01) ==
PROVIDERS: Emergency Provider Emergency Medicine; PCP Family Medicine
DX: J06.9 Acute upper respiratory infection, unspecified (principal); R91.1 Solitary pulmonary nodule; Z90.710 Acquired absence of both cervix and uterus; R10.31 Right lower quadrant pain; Z90.721 Acquired absence of ovaries, unilateral; Z87.891 Personal history of nicotine dependence; E04.1 Nontoxic single thyroid nodule; N83.202 Unspecified ovarian cyst, left side
CPT/HCPCS: 71250; 74176; 87420; 87804; 87811; 94640; 99284; Q0162

== ENCOUNTER 2025-01-23 08:26 | Outpatient (OUT) | payer BC, OTHER, SELFPAY ==
--- OUTSIDE RECORDS SUMMARY | 2025-01-23 08:32 | XMS_ITS | Clinical Summary ---
Author Organization [facility] Address [facility] [place] [address] Care Team Providers Care Choke Setter Name Role Phone Naveed Farfan Unavailable Naveed Farfan Primary Care Provider [phone] Allergies No known active allergies Medications MedicationSigDispense QuantityRefillsLast FilledStart DateEnd DateStatus MULTIVITAMIN ORAL 1 tablet.03/05/2017Active ALPRAZolam (XANAX) 0.25 mg tablet As Lobsxlha22/27/2021ctive loperamide (IMODIUM) 2 mg cap(s) EVERY 1-2 HOURS09/05/2018Active omeprazole (PRILOSEC) 40 mg capsule TAKE 1 CAPSULE BY MOUTH TWICE A DAY FOR 90 DAYS01/02/2023ctive sucralfate (CARAFATE) 1 gram tablet Take 1 tablet by mouth every afternoon.03/05/2023ctive MEDICATION, NON-DATABASE Take 1 tablet by mouth three times a day before meals. ESSENTIALZYME - Dietary supplementActive Social History Tobacco UseTypesPacks/DayYears UsedDateSmoking Tobacco: XlhmtqZlvxuarsge0174 - 2001Passive Smoke Exposure: NeverSmokeless Tobacco: Never Tobacco Cessation:Counseling Given: Not Answered Area Deprivation IndexAnswerDate RecordedNational Score (1-100), lower number is lower obom114903/24/2023State Score (1-10), lower number is lower ypik95603/24/2023 Data from: https://www.neighborhoodatlas.medicine.[facility]/. Last address used for b[address]elqr[address]CommentsUnknownSex and Gender InformationValueDate RecordedSex Assigned at BirthNot on fileLegal SexFemale 03/02/2022 11:32 AM ESTGender IdentityNot on fileSexual OrientationNot on file Last Filed Vital Signs Vital SignReadingTime TakenCommentsBlood Ccbryqfd352/80003/24/2023 11:17 AM EST Jsveg937703/24/2023 11:17 AM ESTTemperature--Respiratory Rate--Oxygen Saturation 98%03/24/2023 11:17 AM ESTInhaled Oxygen Concentration--Xnzdgb22.2 kg (183 lb 6.8 oz)03/24/2023 11:17 AM DNVMlkbol426.8 cm (5' 4.5 )03/24/2023 11:17 AM EST Patient reportedBody Mass Gzble425603/24/2023 11:17 AM EST Plan of Treatment Health MaintenanceDue DateLast DoneCommentsAnxiety Zqrckjbks37/03/1987Depression Ejzwosyjc15/03/1987HIV Awkqcqctc17/03/1987Hepatitis C Jsumoydpo61/03/1987 DTaP,Tdap,Td Vaccine (1 - Tdap)1987Hepatitis B Vaccine (1 of 3 - 19+ 3- dose series)1987Cervical Cancer Uzebcyiry46/03/1990Mammogram Screening 2008CT Dqvgivhzicjn64/03/2014Cologuard (FIT-DNA)2013Colonoscopy 2013Colorectal Cancer Gimfjbtry61/03/2014Diabetes Spqthmkxm51/03/2014Fecal Occult Blood2013Lipid Pjpodyggd75/03/0394Iaoamvqywddcm16/03/2014 Pneumococcal Vaccine: 50+ (1 of 1 - PCV)2018Shingrix Vaccine (1 of 2) 2018Covid-19 Vaccine (4 - 2024- season)/, 08/12/2020, 07/16/2020Influenza Vaccine (#1)2024 Insurance Care Teams Team MemberRelationshipSpecialtyStart DateEnd Date Naveed Farfan [address] [place] [id number] PCP - GeneralFamily Nipsxvjl99/4/23 Naveed Farfan [address] [place] [address] ReferringFamily Medicine03/02/22
--- OUTSIDE RECORDS SUMMARY | 2025-01-23 08:32 | XMS_ITS | Clinical Summary ---
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 Take before meals.01/02/2023ctive ALPRAZolam (Xanax) 0.25 MG tablet Take 0.25 mg by mouth as needed at bedtime for anxiety or sleep08/10/2023ctive anastrozole (Arimidex) 1 MG chemo tablet Take 1 mg by mouth Daily.5Active Active Problems ProblemNoted DateDiagnosed DateDuctal carcinoma in situ (DCIS) of left breast 04/17/2024Microcalcification of left breast on oanjtxbym16/30/2025bdominal pain 06/30/2023olon ixhwal9906/30/2023ysfunctional vjzunymuybj06/08/2024yspepsia and disorder of function of mabkcvm3906/30/2023GERD (gastroesophageal reflux disease) 06/30/20233326Hyugdqh17/17/2024hronic superficial gastritis without bleeding 06/09/20232819Nstqx48/17/2024iverticular disease of colon06/09/2023yspepsia 06/09/2023Enlarged vxuunva3806/09/2023Thyroid luasva7406/09/2023Gastroesophageal reflux mhhrtlq9706/09/20232048Dcbwgkzxhfeiah85/17/2024Intestinal metaplasia of gastric gaulzl8806/09/2023lternating constipation and /17/2024iarrhea 06/09/2023Irritable bowel syndrome with zufjhbvm16/17/2024Leukocytes in urine 06/09/20233599Htsydrr18/17/2024ersonal history of colonic qdqlqr3506/09/2023Screening mammogram for breast cwqpvj2706/09/2023Wellness qvyxwgwgulv21/17/2024 Resolved Problems ProblemNoted DateDiagnosed DateResolved DateRUQ abdominal pain01/31/2024 01/31/20240752Bzldejzpwaopw75 Encounters DateTypeDepartmentCare IeuoXpgprtnloxu81/30/2025 9:15 AM EDTOffice Visit [facility] [address] [phone] Jaime Bartholomew DO Ductal carcinoma in situ (DCIS) of left breast (Primary Dx)12/21/2024Travel 12/19/20242703Aiuuii11/15/7590Ikgctw53/24/2025Travelfrom Last 3 Months Family History Medical HistoryRelationNameCommentsBreast cancerMaternal GrandmotherOvarian cancerMotherUterine cancerMotherUterine cancerPaternal GrandmotherColon cancer Neg HxPancreatic cancerNeg HxAvoxoybmZmnhFelfifUdlyqmnrTsdweie2RntbxyClplk Maternal GrandmotherMotherAlivePaternal GrandmotherSister1 Social History Tobacco UseTypesPacks/DayYears UsedDateSmoking Tobacco: FormerCigarettesQuit: 2003Smokeless Tobacco: Never Tobacco Cessation:Counseling Given: Not Answered Alcohol UseStandard Drinks/WeekCommentsYes0 (1 standard drink = 0.6 oz pure alcohol)CommentsUnknownSex and Gender InformationValueDate RecordedSex Assigned at BirthNot on fileLegal FcjFsiest88/15/2023 7:21 PM EDTGender Identity Not on fileSexual OrientationNot on file Last Filed Vital Signs Vital SignReadingTime TakenCommentsBlood Zdpbrvgu457/8403/23/2024 1:49 PM EST Pulse--Temperature--Respiratory Rate--Oxygen Saturation--Inhaled Oxygen Concentration--Jphrkf18.8 kg (187 lb)09/14/2024 2:09 PM EKVGjzyut142.8 cm (5' 4.5 )09/14/2024 2:09 PM EDTBody Mass Index31.607 2:09 PM EDT Plan of Treatment DateTypeDepartmentCare Team (Latest Contact Info)Kwfjlqczyyw31/15/2025 4:00 PM ESTOffice Visit [facility] [address] [place] [phone] Fausto Veliz, DO [address] [place] [address] 03/29/2025 9:45 AM ESTOffice Visit [facility] [address] [facility] [address] [place] [phone] Jaime Bartholomew, DO [address] [facility] [address] [place] [address] Health MaintenanceDue DateLast DoneCommentsCT Mafrtfdpzmja74/03/1969Colonoscopy 1968Colorectal Cancer Atmfiquex06/03/1969FIT-DNA1968FIT1968 FOBT1968 2859Uewyltlfjkqsw80/03/1969Pap Smear1989Cervical Cancer Tfgcmhlvf38/03/1999HPV/Rbejdb3303/27/1998COVID-19 Vaccine (2024- season) /, 07/16/2020Influenza Vaccine (#1)2024Mammogram 6005/17/2024, 05/16/2024, 03/14/2024, Additional history exists Pneumococcal Vaccine: Pediatrics (0 to 5 Years) and At-Risk Patients (6 to 64 Years)Aged OutNo longer eligible based on patient's age to complete this topic Procedures Procedure NamePriorityDate/TimeAssociated DiagnosisCommentsBI MAMMOGRAM DIAGNOSTIC LEFT05/17/2024 9:39 AM EDT from Last 3 Months or Most Recently Relevant to Health Maintenance Results * Left diagnostic mammogram (05/17/2024 9:39 AM EDT)Anatomical RegionLaterality ModalityBreastLeftMammographySpecimen (Source)Anatomical Location / Laterality Collection Method / VolumeCollection TimeReceived Time05/17/2024 9:39 AM EDT Narrative 05/17/2024 9:43 AM EDT [facility] ?[address] ?[place] [address] ?? [phone] ? Mammography Report ? Signed ? Patient: EmyZari ?MR#: [id number] ?? [id number] ? : 1970 ?Acct:[id number] ? Age/Sex: 54 / F ?Adm Date: //25 ? Loc: [place] ?Room: ?Type: DEP SDC ?? Attending Dr: Jaime Bartholomew DO ? Ordering Provider: Jaime Bartholomew, DO ? Date of Service: /25/25 ? Procedure(s): MM surgical specimen LT ?? Accession Number(s): ([id number]) MM/MM surgical specimen LT: POST LT LUMPECTOPMY -SPECIMAN W/CLIP AND SEED ? Copies to: Naveed Farfan,DO ?? Jaime Bartholomew, DO ? CLINICAL INFORMATION: Left] breast lumpectomy. ? SPECIMEN RADIOGRAPH: ? A single radiograph of the [left] breast specimen showed a metallic marking clip and radioiodine seed within the specimen. ? The images were reviewed by the attending physician during the procedure. ? Impression dictated by: Jeff Zamorano M.D.05/17/2024 9:40 AM ? Dictation Location: RADIO-PC-23 ? Dictated By: ?Jeff Zamorano MD ? 05/17/24 0939 ? Signed By: <Electronically signed by Jeff Zamorano MD in OV> ? 05/17/24 0940 Procedure Note Radiology, Radiologist, - 05/17/2024 [facility] [address] [facility] [address] [place] [id number] Mammography Report Signed Patient: Zari Avalos [facility] [place]#: [id number] 764 : 1970Acct:[id number] Age/Sex: 54 / FAdm Date: 05/16/24 Loc: [place] Room:Type: [facility] Attending Dr: Jaime Bartholomew DO Ordering Provider: Jaime Bartholomew DO Date of Service: 05/16/24 Procedure(s): MM surgical specimen LT Accession Number(s): ([id number]) MM/MM surgical specimen LT: POST LT LUMPECTOPMY -SPECIMAN W/CLIP AND SEED Copies to: DO Jaime Walters DO CLINICAL INFORMATION: Left] breast lumpectomy. SPECIMEN RADIOGRAPH: A single radiograph of the [left] breast specimen showed a metallicmarking clip and radioiodine seed within the specimen. The images were reviewed by the attending physician during the procedure. Impression dictated by: Jeff Zamorano M.D.05/17/2024 9:40 AM Dictation Location: [place] [address] Dictated By: Jeff Zamorano MD 05/17/24 0939 Signed By: <Electronically signed by Jeff Zamorano MD in OV> 05/17/24 0940 Authorizing ProviderResult TypeResult StatusFredric H Puma DOIMG BI PROCEDURESFinal Result from Last 3 Months or Most Recently Relevant to Health Maintenance Insurance Care Teams Team MemberRelationshipSpecialtyStart DateEnd Date Naveed Farfan DO [address] [place] [address] PCP - GeneralFamily Medicine06/08/24 Fausto Veliz DO [address] [place] [address] Otolaryngology07/26/23
[2025-01-23 08:58] LABS: Hematocrit 39.0 % (36.0-48.0); Hemoglobin 13.2 g/dL (12.0-16.0); Immature Granulocytes Abs Auto 0.00 10^3/uL (0.00-0.03); Immature Granulocytes Pct Auto 0.0 % (0.0-0.5); Lymphocytes Absolute Auto 1.2 10^3/uL (1.2-3.8); Mean Corpuscular HGB Conc 33.8 g/dL (29.9-35.2); Mean Corpuscular Hemoglobin 32.2 pg (26.7-34.0); Mean Corpuscular Volume 95.1 fL (81.0-99.0); Platelet Count 294 10^3/uL (150-450); Red Blood Count 4.10 10^6/uL (4.20-5.40); White Blood Count 3.7 10^3/uL (4.0-11.0)
[2025-01-23 10:24] LABS: Alanine Aminotransferase 32 U/L (14-59); Albumin Globulin Ratio 0.9; Albumin Level 3.7 g/dL (3.4-5.0); Alkaline Phosphatase 94 U/L (46-116); Anion Gap 9.2; Aspartate Amino Transferase 20 U/L (15-37); Blood Urea Nitrogen 13.0 mg/dL (7.0-18.0); Calcium 9.2 mg/dL (8.5-10.1); Carbon Dioxide 33.2 mmol/L (21.0-32.0); Chloride 104 mmol/L (98-107); Cholesterol 277 mg/dL (<=200); Estimated GFR (African America >60 (>=60 mL/min/1.73m^2); Estimated GFR (Non-African Ame >60 (>=60 mL/min/1.73m^2); Globulin 3.9 g/dL; Glucose 100 mg/dL (74-106); HDL Cholesterol 64 mg/dL (40-60); Potassium 4.4 mmol/L (3.5-5.1); Sodium 142 mmol/L (136-145); Thyroid Stimulating Hormone 3.103 uIU/mL (0.358-3.740); Total Protein 7.6 g/dL (6.4-8.2); Triglycerides 163 mg/dL (<=150); VLDL CHOLESTEROL 32.6 mg/dL
== END 2025-01-23 08:27 | disposition home or self-care (01) ==
PROVIDERS: PCP Family Medicine; Visit Provider Family Medicine
DX: Z00.00 Encounter for general adult medical examination without abnormal findings (principal)
CPT/HCPCS: 36415; 80053; 80061; 83036; 84443; 85025